=== PATIENT | female | born 1975 | race Caucasian/White ===

== ENCOUNTER 2021-06-26 08:22 | Inpatient (IN) ==
[2021-06-26] MEDS ORDERED: CeFAZolin Syr 2,000MG/20 ML 2,000 MG/20 ML SYRINGE IVPB ONE (08:48)
[2021-06-26] MEDS ORDERED: Ringers Solution, Lactated 1,000 ML IVC SCH (09:00)
[2021-06-26] MEDS ORDERED: Ondansetron 4 MG/2 ML VIAL IVP PRN ×2 (09:03→15:32)
[2021-06-26] MEDS ORDERED: *HR* Rocuronium Bromide 50 MG/5 ML VIAL ONE ×2 (09:13→11:28)
[2021-06-26] MEDS ORDERED: Lidocaine -MPF 2% 2 ML VIAL ONE (09:13)
[2021-06-26] MEDS ORDERED: *HR* Succinylcholine 200 MG/10 ML VIAL IVP ONE (09:13)
[2021-06-26] MEDS ORDERED: Sugammadex Sodium 200 MG/2 ML VIAL IV ONE ×2 (09:13→10:06)
[2021-06-26] MEDS ORDERED: *HR* FentaNYL (PF) 100 MCG/2 ML VIAL ONE ×2 (09:13→11:18)
[2021-06-26] MEDS ORDERED: Ondansetron 4 MG/2 ML VIAL ONE (09:13)
[2021-06-26] MEDS ORDERED: *HR* Propofol 200 MG/20 ML VIAL IVP ONE (09:14)
[2021-06-26] MEDS ORDERED: *HR* Midazolam HCl 2 MG/2 ML VIAL ONE (09:14)
[2021-06-26] MEDS ORDERED: Lidocaine HCL 4 ML Topical Solution (Laryng-O-Jet Kit Sterile Pak) TP ONE (10:58)
[2021-06-26] MEDS ORDERED: *HR* HYDROMORPHONE 2 MG/ML VIAL ONE (11:24)
[2021-06-26] MEDS ORDERED: Acetaminophen IV 1,000 MG/100 ML BAG IVPB ONE (11:47)
[2021-06-26] MEDS ORDERED: Ketorolac 30 MG/ML VIAL ONE (12:01)
[2021-06-26] MEDS: *HR* HYDROmorphone PF 0.5 MG/0.5 ML SYRINGE IVP PRN ×3 (13:39→14:26)
[2021-06-26] MEDS ORDERED: Naloxone 0.4 MG/ML INJ IVP PRN (15:32)
[2021-06-26] MEDS: 0.9 % Sodium Chloride 1,000 ML IVC SCH (15:55)
[2021-06-26] MEDS: *HR* OxyCODONE Oral Soln 5 MG/5 ML UD.LIQ PO PRN ×2 (15:58→20:15)
[2021-06-26] MEDS: *HR* Heparin 5,000 UNIT/ML VIAL SQ SCH ×2 (16:00→20:15)
[2021-06-26] MEDS: Ipratropium/Albuterol Neb 3 ML IH SCH ×3 (16:10→22:50)
[2021-06-26] MEDS: Ketorolac 30 MG/ML VIAL IVP SCH (17:10)
[2021-06-26] MEDS: Docusate Oral Soln 100 MG/10 ML UDC PO SCH (20:29)
[2021-06-26] MEDS: Mirtazapine 15 MG TABLET PO SCH (20:29)
[2021-06-26] MEDS ORDERED: Lithium Carbonate ER 450 MG TABLET.ER PO SCH (21:00)
[2021-06-27] MEDS: Ketorolac 30 MG/ML VIAL IVP SCH ×5 (00:04→23:38)
[2021-06-27] MEDS: *HR* OxyCODONE Oral Soln 5 MG/5 ML UD.LIQ PO PRN ×6 (00:05→20:25)
[2021-06-27] MEDS ORDERED: *HR* OxyCODONE Immed Rel 5 MG TABLET PO PRN (02:21)
[2021-06-27] MEDS ORDERED: *HR* HYDROmorphone (PF) 1 MG/ML SYRINGE IVP ONE (02:24)
[2021-06-27] MEDS: Ipratropium/Albuterol Neb 3 ML IH SCH ×6 (03:53→22:46)
[2021-06-27] MEDS: 0.9 % Sodium Chloride 1,000 ML IVC SCH ×2 (04:05→17:56)
[2021-06-27] MEDS: *HR* Heparin 5,000 UNIT/ML VIAL SQ SCH ×3 (06:03→23:39)
[2021-06-27 06:11] LABS: Hematocrit 47.2 % (35.3-44.9); Mean Corpuscular HGB Conc 31.8 g/dL (31.6-35.5); Mean Corpuscular Hemoglobin 29.5 pg (28.0-33.3); Mean Corpuscular Volume 92.7 fL (83.0-100.0); Mean Platelet Volume 11.5 fL (9.4-12.4); Platelet Count 221 K/mcL (140-400); Red Blood Count 5.09 M/mcL (3.82-4.97); Red Cell Distribution Width 12.4 % (11.5-14.5); White Blood Count 19.4 K/mcL (4.3-11.1)
[2021-06-27] MEDS: *HR* HYDROmorphone (PF) 1 MG/ML SYRINGE IVP PRN ×4 (06:30→20:25)
[2021-06-27 06:42] LABS: BUN/Creatinine Ratio 13 (6-26); Blood Urea Nitrogen 12 mg/dL (6-20); Calcium 8.8 mg/dL (8.6-10.3); Carbon Dioxide 24 mEq/L (23-29); Chloride 103 mEq/L (98-107); Glucose 98 mg/dL (70-105); Osmolality,Calculated 280 (280-300); Potassium 5.1 mEq/L (3.5-5.1); Sodium 135 mEq/L (136-145); eGFR For African Americans > 60 (> 60); eGFR For Non-African Americans > 60 (> 60)
[2021-06-27] MEDS: diazePAM 10 MG/2 ML SYRINGE IVP PRN ×2 (07:39→21:06)
[2021-06-27] MEDS ORDERED: methocarbamoL 500 MG TABLET PO SCH (09:00)
[2021-06-27] MEDS ORDERED: traZODone 50 MG TABLET PO SCH (09:00)
[2021-06-27] MEDS: Docusate Oral Soln 100 MG/10 ML UDC PO SCH ×2 (09:07→23:34)
[2021-06-27] MEDS: Pantoprazole 40 MG VIAL IVP SCH (09:07)
[2021-06-27] MEDS: Lithium Carbonate ER 450 MG TABLET.ER PO SCH (23:33)
[2021-06-27] MEDS: methocarbamoL 500 MG TABLET PO SCH (23:33)
[2021-06-27] MEDS: Mirtazapine 15 MG TABLET PO SCH (23:34)
[2021-06-27] MEDS: traZODone 50 MG TABLET PO SCH (23:34)
[2021-06-28] MEDS: *HR* OxyCODONE Oral Soln 5 MG/5 ML UD.LIQ PO PRN ×4 (00:32→17:44)
[2021-06-28] MEDS: *HR* HYDROmorphone (PF) 1 MG/ML SYRINGE IVP PRN ×5 (00:32→21:16)
[2021-06-28 02:58] LABS: Hematocrit 43.3 % (35.3-44.9); Hemoglobin 13.5 g/dL (11.5-15.4); Mean Corpuscular HGB Conc 31.2 g/dL (31.6-35.5); Mean Corpuscular Hemoglobin 29.4 pg (28.0-33.3); Mean Corpuscular Volume 94.3 fL (83.0-100.0); Mean Platelet Volume 10.9 fL (9.4-12.4); Platelet Count 230 K/mcL (140-400); Red Blood Count 4.59 M/mcL (3.82-4.97); Red Cell Distribution Width 12.8 % (11.5-14.5); White Blood Count 18.9 K/mcL (4.3-11.1)
[2021-06-28 03:24] LABS: BUN/Creatinine Ratio 12 (6-26); Blood Urea Nitrogen 9 mg/dL (6-20); Calcium 8.6 mg/dL (8.6-10.3); Carbon Dioxide 22 mEq/L (23-29); Chloride 104 mEq/L (98-107); Glucose 106 mg/dL (70-105); Osmolality,Calculated 281 (280-300); Potassium 4.2 mEq/L (3.5-5.1); Sodium 136 mEq/L (136-145); eGFR For African Americans > 60 (> 60); eGFR For Non-African Americans > 60 (> 60)
[2021-06-28] MEDS: Ipratropium/Albuterol Neb 3 ML IH SCH ×6 (03:38→23:13)
[2021-06-28] MEDS: Ketorolac 30 MG/ML VIAL IVP SCH ×4 (06:49→23:27)
[2021-06-28] MEDS: *HR* Heparin 5,000 UNIT/ML VIAL SQ SCH ×3 (06:50→21:29)
[2021-06-28] MEDS: 0.9 % Sodium Chloride 1,000 ML IVC SCH ×2 (10:02→21:32)
[2021-06-28] MEDS: Docusate Oral Soln 100 MG/10 ML UDC PO SCH ×2 (10:03→21:16)
[2021-06-28] MEDS: Pantoprazole 40 MG VIAL IVP SCH (10:10)
[2021-06-28] MEDS: traZODone 50 MG TABLET PO SCH (21:14)
[2021-06-28] MEDS: Mirtazapine 15 MG TABLET PO SCH (21:15)
[2021-06-28] MEDS: Lithium Carbonate ER 450 MG TABLET.ER PO SCH (21:24)
[2021-06-28] MEDS: methocarbamoL 500 MG TABLET PO SCH (21:25)
[2021-06-29] MEDS: *HR* OxyCODONE Oral Soln 5 MG/5 ML UD.LIQ PO PRN ×4 (01:43→20:44)
[2021-06-29] MEDS: Ipratropium/Albuterol Neb 3 ML IH SCH ×6 (03:36→22:18)
[2021-06-29] MEDS: Ketorolac 30 MG/ML VIAL IVP SCH ×3 (05:03→17:34)
[2021-06-29] MEDS: *HR* Heparin 5,000 UNIT/ML VIAL SQ SCH ×3 (05:03→22:14)
[2021-06-29] MEDS: Pantoprazole 40 MG VIAL IVP SCH (08:10)
[2021-06-29] MEDS: Docusate Oral Soln 100 MG/10 ML UDC PO SCH ×2 (08:10→20:37)
[2021-06-29] MEDS: *HR* HYDROmorphone (PF) 1 MG/ML SYRINGE IVP PRN (08:11)
[2021-06-29] MEDS: 0.9 % Sodium Chloride 1,000 ML IVC SCH (10:14)
[2021-06-29] MEDS: Metoclopramide 10 MG/2 ML VIAL IVP SCH ×2 (12:15→17:35)
[2021-06-29] MEDS ORDERED: Albumin Human 5% 12.5 GM/250 ML IV.SOLN IVPB ONE ×2 (12:46→19:00)
[2021-06-29] MEDS: traZODone 50 MG TABLET PO SCH (20:35)
[2021-06-29] MEDS: methocarbamoL 500 MG TABLET PO SCH (20:35)
[2021-06-29] MEDS: Lithium Carbonate ER 450 MG TABLET.ER PO SCH (20:36)
[2021-06-29] MEDS: Mirtazapine 15 MG TABLET PO SCH (20:37)
[2021-06-30] MEDS: 0.9 % Sodium Chloride 1,000 ML IVC SCH ×2 (00:20→21:45)
[2021-06-30] MEDS: Metoclopramide 10 MG/2 ML VIAL IVP SCH ×4 (00:23→18:23)
[2021-06-30] MEDS: Ketorolac 30 MG/ML VIAL IVP SCH ×4 (00:24→18:23)
[2021-06-30] MEDS: *HR* Heparin 5,000 UNIT/ML VIAL SQ SCH ×3 (04:50→21:01)
[2021-06-30] MEDS: *HR* OxyCODONE Oral Soln 5 MG/5 ML UD.LIQ PO PRN (08:32)
[2021-06-30] MEDS: Ampicillin/Sulbactam 3,000 MG in 0.9 % Sodium Chloride Mini Bag 100 ML IVPB SCH ×3 (08:33→21:02)
[2021-06-30] MEDS: Pantoprazole 40 MG VIAL IVP SCH (08:33)
[2021-06-30] MEDS: Docusate Oral Soln 100 MG/10 ML UDC PO SCH ×2 (08:33→21:02)
[2021-06-30] MEDS ORDERED: diazePAM 10 MG/2 ML SYRINGE IVP PRN (08:40)
[2021-06-30] MEDS: Lithium Carbonate ER 450 MG TABLET.ER PO SCH (20:56)
[2021-06-30] MEDS: traZODone 50 MG TABLET PO SCH (20:58)
[2021-06-30] MEDS: Mirtazapine 15 MG TABLET PO SCH (20:59)
[2021-06-30] MEDS: methocarbamoL 500 MG TABLET PO SCH (20:59)
[2021-07-01] MEDS: Ketorolac 30 MG/ML VIAL IVP SCH ×2 (01:30→05:41)
[2021-07-01] MEDS: Metoclopramide 10 MG/2 ML VIAL IVP SCH ×4 (01:30→23:02)
[2021-07-01 02:22] LABS: Hematocrit 36.5 % (35.3-44.9); Mean Corpuscular HGB Conc 31.8 g/dL (31.6-35.5); Mean Corpuscular Hemoglobin 28.9 pg (28.0-33.3); Mean Corpuscular Volume 90.8 fL (83.0-100.0); Mean Platelet Volume 10.9 fL (9.4-12.4); Platelet Count 214 K/mcL (140-400); Red Blood Count 4.02 M/mcL (3.82-4.97); Red Cell Distribution Width 13.4 % (11.5-14.5); White Blood Count 18.5 K/mcL (4.3-11.1)
[2021-07-01 02:38] LABS: Hemoglobin 11.6 g/dL (11.5-15.4)
[2021-07-01] MEDS: Ampicillin/Sulbactam 3,000 MG in 0.9 % Sodium Chloride Mini Bag 100 ML IVPB SCH ×2 (02:47→07:35)
[2021-07-01] MEDS: *HR* Heparin 5,000 UNIT/ML VIAL SQ SCH ×2 (05:41→13:15)
[2021-07-01] MEDS: *HR* OxyCODONE Oral Soln 5 MG/5 ML UD.LIQ PO PRN ×2 (07:34→13:15)
[2021-07-01] MEDS: Docusate Oral Soln 100 MG/10 ML UDC PO SCH (07:34)
[2021-07-01] MEDS: Pantoprazole 40 MG VIAL IVP SCH (07:34)
[2021-07-01] MEDS: Ipratropium/Albuterol Neb 3 ML IH SCH ×2 (11:47→15:51)
[2021-07-01 14:04] LABS: BUN/Creatinine Ratio 24 (6-26); Blood Urea Nitrogen 25 mg/dL (6-20); Calcium 8.9 mg/dL (8.6-10.3); Carbon Dioxide 19 mEq/L (23-29); Chloride 112 mEq/L (98-107); Glucose 106 mg/dL (70-105); Osmolality,Calculated 299 (280-300); Potassium 4.5 mEq/L (3.5-5.1); Sodium 142 mEq/L (136-145); eGFR For African Americans > 60 (> 60); eGFR For Non-African Americans 57 (> 60)
[2021-07-01] MEDS ORDERED: Norepinephrine 4 MG/254 ML in 0.9% Sodium Chloride IVC ONE (14:46)
[2021-07-01] MEDS ORDERED: Azithromycin 250 MG TABLET PO SCH (15:00)
[2021-07-01] MEDS ORDERED: Iopamidol - 370 500 ML MLS PO ONE (15:28)
[2021-07-01] MEDS ORDERED: *HR* Midazolam HCl 5 MG/5 ML VIAL IVP ONE ×2 (16:08→17:40)
[2021-07-01] MEDS ORDERED: *HR* Etomidate 20 MG/10 ML AMPUL IVP ONE (16:08)
[2021-07-01] MEDS: Piperacillin/Tazobactam 3.375 GM in 0.9 % Sodium Chloride Mini Bag 100 ML IVPB SCH (16:27)
[2021-07-01 16:41] LABS: Albumin 2.5 g/dL (3.5-5.7); Albumin/Globulin Ratio 0.9 (1.1-2.2); Bilirubin,Direct 0.2 mg/dL (0.0-0.2); Bilirubin,Indirect 0.4 mg/dL (0.0-1.0); Bilirubin,Total 0.6 mg/dL (0.3-1.0); Globulin 2.7 g/dL (2.4-3.5); Total Protein 5.2 g/dL (6.4-8.9)
[2021-07-01] MEDS ORDERED: Heparin 1,000 UNITS/500 mL 500 ML ONE (17:10)
[2021-07-01] MEDS ORDERED: *HR* FentaNYL (PF) 100 MCG/2 ML VIAL ONE ×2 (17:11→17:18)
[2021-07-01] MEDS ORDERED: FentaNYL (PF) 1,000 MCG/100 ML IV.SOLN IVC SCH ×2 (17:15→20:15)
[2021-07-01] MEDS ORDERED: Ondansetron 4 MG/2 ML VIAL ONE (17:19)
[2021-07-01] MEDS ORDERED: *HR* Phenylephrine 10 MG/ML VIAL ONE (17:19)
[2021-07-01] MEDS ORDERED: *HR* Rocuronium Bromide 50 MG/5 ML VIAL ONE ×2 (17:19→19:03)
[2021-07-01] MEDS ORDERED: 0.9 % Sodium Chloride 1,000 ML ONE (17:25)
[2021-07-01] MEDS ORDERED: Albumin Human 5% 25.0 GM/500 ML IV.SOLN ONE (17:26)
[2021-07-01] MEDS ORDERED: *HR* Propofol 200 MG/20 ML VIAL IVP ONE (17:28)
[2021-07-01] MEDS ORDERED: Norepinephrine 4 MG/254 ML IV.SOLN IVC SCH ×3 (17:30→22:15)
[2021-07-01 17:31] LABS: ABG Base Excess -5 mEq/L (-2 to 3); ABG HCO3 23 mEq/L (21-27); ABG Oxygen Saturation 82 % (95-98); ABG PCO2 58 mmHg (35-45); ABG PO2 58 mmHg (85-104); ABG TCO2 24 mEq/L (20-26)
[2021-07-01 17:57] LABS: ABG Base Excess -7 mEq/L (-2 to 3); ABG HCO3 18 mEq/L (21-27); ABG Oxygen Saturation 100 % (95-98); ABG PCO2 35 mmHg (35-45); ABG PH 7.34 pH Units (7.32-7.45); ABG PO2 294 mmHg (85-104); ABG TCO2 20 mEq/L (20-26); Blood Gas VT 450 cc
[2021-07-01 18:04] LABS: Hematocrit 19.8 % (35.3-44.9); Mean Corpuscular HGB Conc 32.8 g/dL (31.6-35.5); Mean Corpuscular Hemoglobin 29.7 pg (28.0-33.3); Mean Corpuscular Volume 90.4 fL (83.0-100.0); Mean Platelet Volume 11.6 fL (9.4-12.4); Nucleated Red Blood Cells 0.6 /100 WBC (0); Platelet Count 127 K/mcL (140-400); Red Blood Count 2.19 M/mcL (3.82-4.97); Red Cell Distribution Width 13.8 % (11.5-14.5); White Blood Count 10.8 K/mcL (4.3-11.1)
[2021-07-01 18:05] LABS: Hemoglobin 6.5 g/dL (11.5-15.4)
[2021-07-01 18:06] LABS: VBG Ionized Calcium 1.08 mmol/L (1.15-1.35)
[2021-07-01 18:14] LABS: Heparin anti-factor XA UFH < 0.04 IU/mL (0.30-0.70)
[2021-07-01 18:15] LABS: INR 1.6; Prothrombin Time 18.3 Seconds (9.4-12.1)
[2021-07-01] MEDS ORDERED: Ketamine HCL *QUVA* 50mg (1mL) SYRINGE ONE ×2 (18:15→19:38)
[2021-07-01] MEDS ORDERED: 0.9 % Sodium Chloride 1,000 ML IVC SCH (18:16)
[2021-07-01] MEDS ORDERED: diazePAM 10 MG/2 ML SYRINGE IVP PRN ×2 (18:16→22:13)
[2021-07-01] MEDS ORDERED: Ondansetron 4 MG/2 ML VIAL IVP PRN ×2 (18:16→22:13)
[2021-07-01] MEDS ORDERED: *HR* OxyCODONE Oral Soln 5 MG/5 ML UD.LIQ PO PRN ×2 (18:16→22:13)
[2021-07-01] MEDS ORDERED: Naloxone 0.4 MG/ML INJ IVP PRN (18:16)
[2021-07-01] MEDS ORDERED: *HR* HYDROmorphone (PF) 1 MG/ML SYRINGE IVP PRN (18:16)
[2021-07-01 18:17] LABS: Activated Partial Thrombo Time 30.8 Seconds (26.0-36.0)
[2021-07-01] MEDS ORDERED: CefOXitin 2,000 MG VIAL ONE (18:30)
[2021-07-01 18:42] LABS: Alanine Aminotransferase 8 Units/L (7-52); Albumin 1.7 g/dL (3.5-5.7); Albumin/Globulin Ratio 1.2 (1.1-2.2); Alkaline Phosphatase 35 Units/L (34-104); Aspartate Amino Transferase 15 Units/L (13-39); BUN/Creatinine Ratio 23 (6-26); Bilirubin,Total 0.4 mg/dL (0.3-1.0); Blood Urea Nitrogen 27 mg/dL (6-20); Calcium 6.5 mg/dL (8.6-10.3); Carbon Dioxide 20 mEq/L (23-29); Chloride 118 mEq/L (98-107); Globulin 1.4 g/dL (2.4-3.5); Glucose 121 mg/dL (70-105); Magnesium 2.1 mg/dL (1.6-2.6); Osmolality,Calculated 310 (280-300); Potassium 2.8 mEq/L (3.5-5.1); Sodium 147 mEq/L (136-145); Total Protein 3.1 g/dL (6.4-8.9); eGFR For African Americans > 60 (> 60); eGFR For Non-African Americans 50 (> 60)
[2021-07-01 18:56] LABS: Hematocrit 17.7 % (35.3-44.9)
[2021-07-01 18:56] LABS: Large Platelets Present (Not Present); Lymphocytes # 0.4 K/mcL (0.6-4.6); Monocytes # 0.4 K/mcL (0.0-1.3); Neutrophils # 9.5 K/mcL (1.6-8.9); Platelet Estimate Slight Decrease (Normal)
[2021-07-01 19:01] LABS: Hemoglobin 5.8 g/dL (11.5-15.4)
[2021-07-01] MEDS ORDERED: Tranexamic Acid 1,000 MG/10 ML VIAL ONE (19:06)
[2021-07-01] MEDS: FentaNYL (PF) 1,000 MCG/100 ML IV.SOLN IVC SCH ×2 (19:45→22:27)
[2021-07-01] MEDS ORDERED: Ipratropium/Albuterol Neb 3 ML IH SCH (20:00)
[2021-07-01 20:31] LABS: ABG Base Excess -6 mEq/L (-2 to 3); ABG HCO3 20 mEq/L (21-27); ABG Oxygen Saturation 100 % (95-98); ABG PCO2 44 mmHg (35-45); ABG PH 7.27 pH Units (7.32-7.45); ABG PO2 281 mmHg (85-104); ABG TCO2 22 mEq/L (20-26); Blood Gas VT 400 cc
[2021-07-01] MEDS ORDERED: methocarbamoL 500 MG TABLET PO SCH (21:00)
[2021-07-01] MEDS ORDERED: Lithium Carbonate ER 450 MG TABLET.ER PO SCH (21:00)
[2021-07-01] MEDS ORDERED: traZODone 50 MG TABLET PO SCH (21:00)
[2021-07-01] MEDS ORDERED: Mirtazapine 15 MG TABLET PO SCH (21:00)
[2021-07-01] MEDS ORDERED: *HR* Heparin 5,000 UNIT/ML VIAL SQ SCH (22:00)
[2021-07-01] MEDS: 0.9 % Sodium Chloride 1,000 ML IVC SCH (22:27)
[2021-07-01] MEDS: Calcium Gluconate 1gm/50mL 1 GM/50 ML BAG IVPB SCH ×2 (22:33→23:01)
[2021-07-02] MEDS ORDERED: Metoclopramide 10 MG/2 ML VIAL IVP SCH
[2021-07-02 01:02] LABS: Mean Corpuscular Volume 89.3 fL (83.0-100.0); Mean Platelet Volume 12.3 fL (9.4-12.4)
[2021-07-02 01:03] LABS: Hematocrit 29.9 % (35.3-44.9); Hemoglobin 9.9 g/dL (11.5-15.4); Immature Platelets 12.7 % (1.1-6.1); Mean Corpuscular HGB Conc 33.1 g/dL (31.6-35.5); Mean Corpuscular Hemoglobin 29.6 pg (28.0-33.3); Red Blood Count 3.35 M/mcL (3.82-4.97)
[2021-07-02 01:42] LABS: Calcium 7.9 mg/dL (8.6-10.3); Potassium 3.8 mEq/L (3.5-5.1)
[2021-07-02 02:13] LABS: Magnesium 2.3 mg/dL (1.6-2.6); Phosphorous 2.2 mg/dL (2.7-4.5)
[2021-07-02] MEDS ORDERED: Potassium Phosphate 44 MEQ in 0.9 % Sodium Chloride 250 ML IVPB ONE (02:35)
[2021-07-02] MEDS: Calcium Gluconate 1gm/50mL 1 GM/50 ML BAG IVPB SCH ×2 (03:23→04:23)
[2021-07-02 04:37] LABS: ABG Base Excess -6 mEq/L (-2 to 3); ABG HCO3 22 mEq/L (21-27); ABG Oxygen Saturation 98 % (95-98); ABG PCO2 53 mmHg (35-45); ABG PH 7.23 pH Units (7.32-7.45); ABG PO2 125 mmHg (85-104); ABG TCO2 24 mEq/L (20-26); Blood Gas VT 400 cc
[2021-07-02] MEDS: Ampicillin/Sulbactam 3,000 MG in 0.9 % Sodium Chloride Mini Bag 100 ML IVPB SCH ×2 (05:24→11:10)
[2021-07-02] MEDS: Metoclopramide 10 MG/2 ML VIAL IVP SCH ×4 (05:25→17:51)
[2021-07-02] MEDS: FentaNYL (PF) 1,000 MCG/100 ML IV.SOLN IVC SCH ×2 (05:25→23:20)
[2021-07-02] MEDS: *HR* Heparin 5,000 UNIT/ML VIAL SQ SCH ×3 (05:25→20:29)
[2021-07-02] MEDS ORDERED: *HR* Dextrose 50 % in Water (Syg) 50 ML SYRINGE IVP PRN (05:35)
[2021-07-02] MEDS ORDERED: D5% in Water 1,000 ML IVC PRN (05:35)
[2021-07-02] MEDS ORDERED: Dextrose 4 GM Chewable Tablets PO PRN ×2 (05:35)
[2021-07-02] MEDS: 0.9 % Sodium Chloride 1,000 ML IVC SCH ×4 (07:30→23:12)
[2021-07-02] MEDS: Piperacillin/Tazobactam 3.375 GM in 0.9 % Sodium Chloride Mini Bag 100 ML IVPB SCH ×2 (07:30→17:51)
[2021-07-02] MEDS: Pantoprazole 40 MG VIAL IVP SCH (08:31)
[2021-07-02] MEDS ORDERED: Pantoprazole 40 MG VIAL IVP SCH (09:00)
[2021-07-02] MEDS ORDERED: Artificial Tears SOLN 15 ML BOTTLE BOTH EYES PRN (09:07)
[2021-07-02] MEDS ORDERED: Lithium Oral Soln 300 MG/5 ML (8 mEq/5mL) UDC GTUBE SCH (10:00)
[2021-07-02] MEDS: Chlorhexidine Rinse 15 ML MOUTHWASH MM SCH ×2 (11:05→20:28)
[2021-07-02] MEDS: Lithium Carbonate 300 MG CAPSULE PO SCH ×2 (11:08→17:51)
[2021-07-02] MEDS: Artificial Tears SOLN 15 ML BOTTLE BOTH EYES SCH ×3 (11:10→20:27)
[2021-07-02 14:35] LABS: RBC,Pleural Fluid 20000 RBC/mcL
[2021-07-02 15:02] LABS: Total Protein,Pleural Fluid 2.1 g/dL
[2021-07-02 15:50] LABS: ABG Base Excess -3 mEq/L (-2 to 3); ABG HCO3 23 mEq/L (21-27); ABG Oxygen Saturation 97 % (95-98); ABG PCO2 46 mmHg (35-45); ABG PH 7.31 pH Units (7.32-7.45); ABG PO2 98 mmHg (85-104); ABG TCO2 25 mEq/L (20-26); Blood Gas Modality ASSIST CONTROL; Blood Gas VT 400 cc
[2021-07-02 16:36] LABS: Basophils,Pleural Fluid 0 %; Eosinophils,Pleural Fluid 0 %; Monocytes,Pleural Fluid 0 %
[2021-07-02 16:58] LABS: Adenovirus Not Detected (Not Detect); Bordetella Pertussis Not Detected (Not Detect); Chlamydophila pneumoniae Not Detected (Not Detect); Coronavirus 229E Not Detected (Not Detect); Coronavirus HKU1 Not Detected (Not Detect); Coronavirus NL63 Not Detected (Not Detect); Coronavirus OC43 Not Detected (Not Detect); Human Metapneumovirus Not Detected (Not Detect); Human Rhinovirus/Enterovirus Not Detected (Not Detect); Influenza A Subtype 2009 H1 Not Detected (Not Detect); Influenza B Not Detected (Not Detect); Mycoplasma pneumoniae Not Detected (Not Detect); Parainfluenza Virus 1 Not Detected (Not Detect); Parainfluenza Virus 2 Not Detected (Not Detect); Parainfluenza Virus 3 Not Detected (Not Detect); Parainfluenza Virus 4 Not Detected (Not Detect); Respiratory Syncytial Virus Not Detected (Not Detect); SARS-CoV-2 Not Detected (Not Detect)
[2021-07-02] MEDS: Mirtazapine 15 MG TABLET GTUBE SCH (20:28)
[2021-07-02] MEDS: methocarbamoL 500 MG TABLET GTUBE SCH (20:28)
[2021-07-02] MEDS ORDERED: Lithium Carbonate ER 450 MG TABLET.ER PO SCH (21:00)
[2021-07-02 22:05] LABS: Appearance of Pleural Fl Cloudy (Clear)
[2021-07-03] MEDS: Artificial Tears SOLN 15 ML BOTTLE BOTH EYES SCH ×6 (00:33→20:09)
[2021-07-03] MEDS: Lithium Carbonate 300 MG CAPSULE PO SCH ×3 (00:34→17:48)
[2021-07-03] MEDS: Metoclopramide 10 MG/2 ML VIAL IVP SCH ×4 (00:34→17:48)
[2021-07-03] MEDS: Piperacillin/Tazobactam 3.375 GM in 0.9 % Sodium Chloride Mini Bag 100 ML IVPB SCH ×3 (02:45→17:48)
[2021-07-03 04:05] LABS: ABG Ionized Calcium 1.24 mmol/L (1.15-1.35)
[2021-07-03 04:10] LABS: ABG Base Excess -2 mEq/L (-2 to 3); ABG HCO3 24 mEq/L (21-27); ABG Oxygen Saturation 98 % (95-98); ABG PCO2 43 mmHg (35-45); ABG PH 7.35 pH Units (7.32-7.45); ABG PO2 112 mmHg (85-104); ABG TCO2 25 mEq/L (20-26); Blood Gas VT 400 cc
[2021-07-03 04:32] LABS: Calcium 8.1 mg/dL (8.6-10.3); Magnesium 2.5 mg/dL (1.6-2.6); Phosphorous 1.6 mg/dL (2.7-4.5); Potassium 3.9 mEq/L (3.5-5.1)
[2021-07-03] MEDS: *HR* Heparin 5,000 UNIT/ML VIAL SQ SCH ×3 (05:26→22:30)
[2021-07-03] MEDS: FentaNYL (PF) 1,000 MCG/100 ML IV.SOLN IVC SCH (09:30)
[2021-07-03] MEDS ORDERED: D5% in Water 1,000 ML IVC SCH (09:45)
[2021-07-03] MEDS ORDERED: Potassium Chloride 20 MEQ in D5% in Water 1,000 ML IVC SCH ×2 (10:45→15:21)
[2021-07-03] MEDS: Chlorhexidine Rinse 15 ML MOUTHWASH MM SCH ×2 (10:45→20:11)
[2021-07-03] MEDS: Pantoprazole 40 MG VIAL IVP SCH (10:47)
[2021-07-03] MEDS: Clinimix E 5%-15% SOLUTION 2,000 ML with MVI, adult with vitamin K 10 ML IV SCH ×2 (13:38→17:17)
[2021-07-03] MEDS ORDERED: *HR* Dextrose 50 % in Water (Syg) 50 ML SYRINGE IVP PRN (15:13)
[2021-07-03] MEDS ORDERED: D5% in Water 1,000 ML IVC PRN (15:13)
[2021-07-03] MEDS ORDERED: D10% in Water 500 ML IVC PRN (15:17)
[2021-07-03] MEDS: Insulin LISPRO 300 UNITS/3 ML VIAL SUBQ SCH ×2 (17:44→21:17)
[2021-07-03 17:46] LABS: Red Cell Distribution Width 15.8 % (11.5-14.5)
[2021-07-03 17:48] LABS: Hematocrit 24.8 % (35.3-44.9); Hemoglobin 8.1 g/dL (11.5-15.4); Immature Platelets 12.4 % (1.1-6.1); Mean Corpuscular HGB Conc 32.7 g/dL (31.6-35.5); Mean Corpuscular Hemoglobin 29.6 pg (28.0-33.3); Mean Corpuscular Volume 90.5 fL (83.0-100.0); Mean Platelet Volume 12.7 fL (9.4-12.4); Red Blood Count 2.74 M/mcL (3.82-4.97); White Blood Count 24.3 K/mcL (4.3-11.1)
[2021-07-03] MEDS: methocarbamoL 500 MG TABLET GTUBE SCH (22:29)
[2021-07-03] MEDS: Mirtazapine 15 MG TABLET GTUBE SCH (22:29)
[2021-07-03] MEDS: *HR* HYDROmorphone (PF) 1 MG/ML SYRINGE IVP PRN (23:11)
[2021-07-04] MEDS: *HR* HYDROmorphone (PF) 1 MG/ML SYRINGE IVP PRN ×8 (01:23→23:43)
[2021-07-04] MEDS: Artificial Tears SOLN 15 ML BOTTLE BOTH EYES SCH ×3 (02:25→08:10)
[2021-07-04] MEDS: Insulin LISPRO 300 UNITS/3 ML VIAL SUBQ SCH ×7 (02:27→23:51)
[2021-07-04] MEDS: Lithium Carbonate 300 MG CAPSULE PO SCH ×3 (02:30→18:34)
[2021-07-04] MEDS: Metoclopramide 10 MG/2 ML VIAL IVP SCH ×4 (02:30→18:34)
[2021-07-04] MEDS: Piperacillin/Tazobactam 3.375 GM in 0.9 % Sodium Chloride Mini Bag 100 ML IVPB SCH ×3 (03:46→18:34)
[2021-07-04 03:47] LABS: Red Cell Distribution Width 15.7 % (11.5-14.5); White Blood Count 24.4 K/mcL (4.3-11.1)
[2021-07-04 03:49] LABS: Hematocrit 25.4 % (35.3-44.9); Hemoglobin 8.3 g/dL (11.5-15.4); Immature Platelets 11.9 % (1.1-6.1); Mean Corpuscular HGB Conc 32.7 g/dL (31.6-35.5); Mean Corpuscular Volume 91.7 fL (83.0-100.0); Mean Platelet Volume 12.8 fL (9.4-12.4); Red Blood Count 2.77 M/mcL (3.82-4.97)
[2021-07-04 04:13] LABS: Magnesium 2.5 mg/dL (1.6-2.6); Phosphorous 2.7 mg/dL (2.7-4.5)
[2021-07-04 04:14] LABS: Calcium 8.3 mg/dL (8.6-10.3)
[2021-07-04] MEDS: *HR* Metoprolol 5 MG/5 ML VIAL IVP PRN ×2 (05:47→23:44)
[2021-07-04] MEDS: Chlorhexidine Rinse 15 ML MOUTHWASH MM SCH ×2 (08:09→21:48)
[2021-07-04] MEDS: Pantoprazole 40 MG VIAL IVP SCH (08:09)
[2021-07-04] MEDS: *HR* Heparin 5,000 UNIT/ML VIAL SQ SCH ×3 (08:14→21:52)
[2021-07-04] MEDS: D5% in Water 1,000 ML IVC SCH ×3 (08:27→22:00)
[2021-07-04] MEDS ORDERED: Fluconazole 200 MG/100 ML 200 MG/100 ML BAG IVPB SCH (09:00)
[2021-07-04] MEDS: Micafungin 100 MG in 0.9 % Sodium Chloride Mini Bag 100 ML IVPB SCH (13:31)
[2021-07-04 13:40] LABS: BUN/Creatinine Ratio 26 (6-26); Blood Urea Nitrogen 29 mg/dL (6-20); Calcium 8.2 mg/dL (8.6-10.3); Carbon Dioxide 27 mEq/L (23-29); Chloride 127 mEq/L (98-107); Glucose 214 mg/dL (70-105); Osmolality,Calculated 336 (280-300); Potassium 3.6 mEq/L (3.5-5.1); Sodium 157 mEq/L (136-145); eGFR For African Americans > 60 (> 60); eGFR For Non-African Americans 52 (> 60)
[2021-07-04] MEDS ORDERED: Clinimix E 5%-15% SOLUTION 2,000 ML with MVI, adult with vitamin K 10 ML IV SCH (17:00)
[2021-07-04 18:23] LABS: BUN/Creatinine Ratio 25 (6-26); Blood Urea Nitrogen 28 mg/dL (6-20); Calcium 8.1 mg/dL (8.6-10.3); Carbon Dioxide 27 mEq/L (23-29); Chloride 127 mEq/L (98-107); Glucose 204 mg/dL (70-105); Osmolality,Calculated 337 (280-300); Potassium 3.6 mEq/L (3.5-5.1); Sodium 158 mEq/L (136-145); eGFR For African Americans > 60 (> 60); eGFR For Non-African Americans 53 (> 60)
[2021-07-04 21:51] LABS: BUN/Creatinine Ratio 24 (6-26); Blood Urea Nitrogen 26 mg/dL (6-20); Calcium 8.2 mg/dL (8.6-10.3); Carbon Dioxide 26 mEq/L (23-29); Chloride 127 mEq/L (98-107); Glucose 151 mg/dL (70-105); Osmolality,Calculated 334 (280-300); Potassium 3.6 mEq/L (3.5-5.1); Sodium 158 mEq/L (136-145); eGFR For African Americans > 60 (> 60); eGFR For Non-African Americans 55 (> 60)
[2021-07-05] MEDS: Mirtazapine 15 MG TABLET GTUBE SCH ×2 (01:26→20:21)
[2021-07-05] MEDS: Lithium Carbonate 300 MG CAPSULE PO SCH ×4 (01:26→23:09)
[2021-07-05] MEDS: methocarbamoL 500 MG TABLET GTUBE SCH ×2 (01:26→20:21)
[2021-07-05] MEDS: Metoclopramide 10 MG/2 ML VIAL IVP SCH ×5 (01:27→23:09)
[2021-07-05] MEDS: Piperacillin/Tazobactam 3.375 GM in 0.9 % Sodium Chloride Mini Bag 100 ML IVPB SCH ×3 (01:27→17:21)
[2021-07-05 03:41] LABS: BUN/Creatinine Ratio 22 (6-26); Blood Urea Nitrogen 24 mg/dL (6-20); Carbon Dioxide 27 mEq/L (23-29); Chloride 125 mEq/L (98-107); Glucose 181 mg/dL (70-105); Osmolality,Calculated 329 (280-300); Sodium 155 mEq/L (136-145); eGFR For African Americans > 60 (> 60); eGFR For Non-African Americans 54 (> 60)
[2021-07-05 04:34] LABS: Hematocrit 24.9 % (35.3-44.9); Mean Corpuscular HGB Conc 32.1 g/dL (31.6-35.5); Mean Corpuscular Hemoglobin 29.4 pg (28.0-33.3); Mean Corpuscular Volume 91.5 fL (83.0-100.0); Platelet Count 103 K/mcL (140-400); Red Blood Count 2.72 M/mcL (3.82-4.97); Red Cell Distribution Width 15.9 % (11.5-14.5)
[2021-07-05 04:50] LABS: BUN/Creatinine Ratio 23 (6-26); Blood Urea Nitrogen 24 mg/dL (6-20); Calcium 8.1 mg/dL (8.6-10.3); Carbon Dioxide 27 mEq/L (23-29); Chloride 125 mEq/L (98-107); Glucose 191 mg/dL (70-105); Osmolality,Calculated 327 (280-300); Phosphorous 2.7 mg/dL (2.7-4.5); Sodium 154 mEq/L (136-145); eGFR For African Americans > 60 (> 60); eGFR For Non-African Americans 56 (> 60)
[2021-07-05] MEDS: *HR* Metoprolol 5 MG/5 ML VIAL IVP PRN (05:11)
[2021-07-05] MEDS: *HR* Heparin 5,000 UNIT/ML VIAL SQ SCH ×3 (05:11→20:21)
[2021-07-05] MEDS: *HR* HYDROmorphone (PF) 1 MG/ML SYRINGE IVP PRN ×3 (05:12→13:46)
[2021-07-05] MEDS: Insulin LISPRO 300 UNITS/3 ML VIAL SUBQ SCH ×6 (05:13→23:10)
[2021-07-05] MEDS ORDERED: Iopamidol - 370 500 ML MLS IVP ONE ×2 (08:58→11:02)
[2021-07-05] MEDS: Pantoprazole 40 MG VIAL IVP SCH (10:16)
[2021-07-05] MEDS: D5% in Water 1,000 ML IVC SCH ×3 (10:42→20:43)
[2021-07-05] MEDS: Micafungin 100 MG in 0.9 % Sodium Chloride Mini Bag 100 ML IVPB SCH (10:53)
[2021-07-05 11:06] LABS: BUN/Creatinine Ratio 25 (6-26); Blood Urea Nitrogen 26 mg/dL (6-20); Calcium 8.1 mg/dL (8.6-10.3); Carbon Dioxide 23 mEq/L (23-29); Chloride 127 mEq/L (98-107); Glucose 189 mg/dL (70-105); Osmolality,Calculated 332 (280-300); Potassium 4.3 mEq/L (3.5-5.1); Sodium 156 mEq/L (136-145); eGFR For African Americans > 60 (> 60); eGFR For Non-African Americans 56 (> 60)
[2021-07-05] MEDS: Chlorhexidine Rinse 15 ML MOUTHWASH MM SCH ×2 (11:10→20:20)
[2021-07-05 14:55] LABS: BUN/Creatinine Ratio 24 (6-26); Blood Urea Nitrogen 24 mg/dL (6-20); Calcium 8.1 mg/dL (8.6-10.3); Carbon Dioxide 27 mEq/L (23-29); Chloride 123 mEq/L (98-107); Glucose 182 mg/dL (70-105); Osmolality,Calculated 327 (280-300); Potassium 3.8 mEq/L (3.5-5.1); Sodium 154 mEq/L (136-145); eGFR For African Americans > 60 (> 60); eGFR For Non-African Americans 60 (> 60)
[2021-07-05] MEDS ORDERED: Clinimix E 5%-15% SOLUTION 2,000 ML with MVI, adult with vitamin K 10 ML IV SCH (17:00)
[2021-07-05 17:25] LABS: BUN/Creatinine Ratio 25 (6-26); Blood Urea Nitrogen 25 mg/dL (6-20); Calcium 8.2 mg/dL (8.6-10.3); Carbon Dioxide 28 mEq/L (23-29); Chloride 122 mEq/L (98-107); Glucose 174 mg/dL (70-105); Osmolality,Calculated 327 (280-300); Potassium 3.8 mEq/L (3.5-5.1); Sodium 154 mEq/L (136-145); eGFR For African Americans > 60 (> 60); eGFR For Non-African Americans 59 (> 60)
[2021-07-05 18:59] LABS: BUN/Creatinine Ratio 25 (6-26); Blood Urea Nitrogen 25 mg/dL (6-20); Calcium 8.3 mg/dL (8.6-10.3); Carbon Dioxide 30 mEq/L (23-29); Chloride 122 mEq/L (98-107); Glucose 121 mg/dL (70-105); Osmolality,Calculated 322 (280-300); Sodium 153 mEq/L (136-145); eGFR For African Americans > 60 (> 60); eGFR For Non-African Americans 59 (> 60)
[2021-07-05 20:50] LABS: BUN/Creatinine Ratio 25 (6-26); Blood Urea Nitrogen 25 mg/dL (6-20); Calcium 8.3 mg/dL (8.6-10.3); Carbon Dioxide 28 mEq/L (23-29); Chloride 121 mEq/L (98-107); Glucose 179 mg/dL (70-105); Osmolality,Calculated 323 (280-300); Potassium 3.7 mEq/L (3.5-5.1); Sodium 152 mEq/L (136-145); eGFR For African Americans > 60 (> 60); eGFR For Non-African Americans 59 (> 60)
[2021-07-06 00:24] LABS: BUN/Creatinine Ratio 24 (6-26); Blood Urea Nitrogen 26 mg/dL (6-20); Calcium 8.4 mg/dL (8.6-10.3); Carbon Dioxide 27 mEq/L (23-29); Chloride 123 mEq/L (98-107); Glucose 202 mg/dL (70-105); Osmolality,Calculated 331 (280-300); Potassium 3.8 mEq/L (3.5-5.1); Sodium 155 mEq/L (136-145); eGFR For African Americans > 60 (> 60); eGFR For Non-African Americans 55 (> 60)
[2021-07-06] MEDS: Piperacillin/Tazobactam 3.375 GM in 0.9 % Sodium Chloride Mini Bag 100 ML IVPB SCH ×3 (01:00→17:27)
[2021-07-06] MEDS: Insulin LISPRO 300 UNITS/3 ML VIAL SUBQ SCH ×6 (03:13→23:46)
[2021-07-06] MEDS: *HR* HYDROmorphone (PF) 1 MG/ML SYRINGE IVP PRN (03:47)
[2021-07-06 03:59] LABS: Hematocrit 24.6 % (35.3-44.9); Immature Platelets 17.5 % (1.1-6.1); Mean Corpuscular HGB Conc 32.5 g/dL (31.6-35.5); Mean Corpuscular Hemoglobin 29.7 pg (28.0-33.3); Mean Corpuscular Volume 91.4 fL (83.0-100.0); Mean Platelet Volume 13.3 fL (9.4-12.4); Red Blood Count 2.69 M/mcL (3.82-4.97); Red Cell Distribution Width 15.5 % (11.5-14.5); White Blood Count 25.3 K/mcL (4.3-11.1)
[2021-07-06 04:13] LABS: BUN/Creatinine Ratio 24 (6-26); Blood Urea Nitrogen 25 mg/dL (6-20); Calcium 8.3 mg/dL (8.6-10.3); Carbon Dioxide 27 mEq/L (23-29); Chloride 121 mEq/L (98-107); Glucose 217 mg/dL (70-105); Osmolality,Calculated 329 (280-300); Potassium 3.9 mEq/L (3.5-5.1); Sodium 154 mEq/L (136-145); eGFR For African Americans > 60 (> 60); eGFR For Non-African Americans 56 (> 60)
[2021-07-06] MEDS: D5% in Water 1,000 ML IVC SCH ×4 (04:15→20:09)
[2021-07-06] MEDS: *HR* Heparin 5,000 UNIT/ML VIAL SQ SCH ×3 (05:03→21:38)
[2021-07-06] MEDS: Metoclopramide 10 MG/2 ML VIAL IVP SCH ×4 (05:03→23:35)
[2021-07-06] MEDS ORDERED: *HR* Metoprolol 5 MG/5 ML VIAL IVP PRN (07:28)
[2021-07-06] MEDS: Lithium Carbonate 300 MG CAPSULE PO SCH ×3 (09:36→23:35)
[2021-07-06] MEDS: Micafungin 100 MG in 0.9 % Sodium Chloride Mini Bag 100 ML IVPB SCH (09:43)
[2021-07-06] MEDS: Chlorhexidine Rinse 15 ML MOUTHWASH MM SCH ×2 (09:53→20:10)
[2021-07-06] MEDS: Pantoprazole 40 MG VIAL IVP SCH (09:53)
[2021-07-06 12:50] LABS: BUN/Creatinine Ratio 27 (6-26); Blood Urea Nitrogen 26 mg/dL (6-20); Calcium 8.2 mg/dL (8.6-10.3); Carbon Dioxide 27 mEq/L (23-29); Chloride 120 mEq/L (98-107); Glucose 194 mg/dL (70-105); Osmolality,Calculated 324 (280-300); Potassium 3.6 mEq/L (3.5-5.1); Sodium 152 mEq/L (136-145); eGFR For African Americans > 60 (> 60); eGFR For Non-African Americans > 60 (> 60)
[2021-07-06] MEDS ORDERED: Vancomycin 1,250 MG/262.5 ML IV.SOLN IVPB SCH (14:00)
[2021-07-06] MEDS: Vancomycin 1,250 MG in D5% in Water 250 ML IVPB SCH (14:59)
[2021-07-06] MEDS ORDERED: Clinimix E 5%-15% SOLUTION 2,000 ML with MVI, adult with vitamin K 10 ML IV SCH (17:00)
[2021-07-06] MEDS: methocarbamoL 500 MG TABLET GTUBE SCH (20:09)
[2021-07-06] MEDS: Mirtazapine 15 MG TABLET GTUBE SCH (20:09)
[2021-07-06 20:37] LABS: BUN/Creatinine Ratio 27 (6-26); Blood Urea Nitrogen 26 mg/dL (6-20); Calcium 8.1 mg/dL (8.6-10.3); Carbon Dioxide 27 mEq/L (23-29); Chloride 117 mEq/L (98-107); Glucose 174 mg/dL (70-105); Osmolality,Calculated 317 (280-300); Potassium 3.7 mEq/L (3.5-5.1); Sodium 149 mEq/L (136-145); eGFR For African Americans > 60 (> 60); eGFR For Non-African Americans > 60 (> 60)
[2021-07-07] MEDS: Vancomycin 1,250 MG in D5% in Water 250 ML IVPB SCH ×2 (03:00→16:56)
[2021-07-07] MEDS: D5% in Water 1,000 ML IVC SCH ×5 (03:00→22:48)
[2021-07-07] MEDS: Piperacillin/Tazobactam 3.375 GM in 0.9 % Sodium Chloride Mini Bag 100 ML IVPB SCH ×3 (03:00→16:38)
[2021-07-07] MEDS: Insulin LISPRO 300 UNITS/3 ML VIAL SUBQ SCH ×6 (03:33→23:35)
[2021-07-07 03:53] LABS: Hematocrit 26.7 % (35.3-44.9); Hemoglobin 8.5 g/dL (11.5-15.4); Immature Platelets 18.5 % (1.1-6.1); Mean Corpuscular HGB Conc 31.8 g/dL (31.6-35.5); Mean Corpuscular Hemoglobin 29.2 pg (28.0-33.3); Mean Corpuscular Volume 91.8 fL (83.0-100.0); Mean Platelet Volume 13.4 fL (9.4-12.4); Red Blood Count 2.91 M/mcL (3.82-4.97); Red Cell Distribution Width 15.2 % (11.5-14.5)
[2021-07-07 03:59] LABS: BUN/Creatinine Ratio 26 (6-26); Blood Urea Nitrogen 28 mg/dL (6-20); Calcium 7.9 mg/dL (8.6-10.3); Carbon Dioxide 26 mEq/L (23-29); Chloride 116 mEq/L (98-107); Glucose 204 mg/dL (70-105); Magnesium 2.1 mg/dL (1.6-2.6); Osmolality,Calculated 315 (280-300); Potassium 3.9 mEq/L (3.5-5.1); Sodium 147 mEq/L (136-145); eGFR For African Americans > 60 (> 60); eGFR For Non-African Americans 56 (> 60)
[2021-07-07] MEDS: *HR* Heparin 5,000 UNIT/ML VIAL SQ SCH ×3 (05:31→21:03)
[2021-07-07] MEDS: Metoclopramide 10 MG/2 ML VIAL IVP SCH ×3 (05:31→16:57)
[2021-07-07] MEDS: Chlorhexidine Rinse 15 ML MOUTHWASH MM SCH ×2 (09:08→21:03)
[2021-07-07] MEDS: Pantoprazole 40 MG VIAL IVP SCH (09:08)
[2021-07-07] MEDS: Micafungin 100 MG in 0.9 % Sodium Chloride Mini Bag 100 ML IVPB SCH (09:09)
[2021-07-07] MEDS: Lithium Carbonate 300 MG CAPSULE PO SCH ×2 (09:10→16:39)
[2021-07-07] MEDS ORDERED: 0.9 % Sodium Chloride 250 ML IVC SCH ×2 (11:30→18:51)
[2021-07-07 13:48] LABS: Hematocrit 25.5 % (35.3-44.9); Hemoglobin 8.1 g/dL (11.5-15.4); Mean Corpuscular HGB Conc 31.8 g/dL (31.6-35.5); Mean Corpuscular Hemoglobin 29.2 pg (28.0-33.3); Mean Corpuscular Volume 92.1 fL (83.0-100.0); Mean Platelet Volume 13.3 fL (9.4-12.4); Platelet Count 263 K/mcL (140-400); Red Blood Count 2.77 M/mcL (3.82-4.97); Red Cell Distribution Width 14.9 % (11.5-14.5)
[2021-07-07 13:58] LABS: White Blood Count 30.2 K/mcL (4.3-11.1)
[2021-07-07 14:09] LABS: BUN/Creatinine Ratio 29 (6-26); Blood Urea Nitrogen 29 mg/dL (6-20); Calcium 7.9 mg/dL (8.6-10.3); Carbon Dioxide 25 mEq/L (23-29); Chloride 116 mEq/L (98-107); Glucose 192 mg/dL (70-105); Osmolality,Calculated 313 (280-300); Potassium 3.8 mEq/L (3.5-5.1); Sodium 146 mEq/L (136-145); eGFR For African Americans > 60 (> 60); eGFR For Non-African Americans > 60 (> 60)
[2021-07-07] MEDS ORDERED: Lidocaine -MPF 2% 2 ML VIAL ONE (14:09)
[2021-07-07] MEDS ORDERED: Ondansetron 4 MG/2 ML VIAL ONE (14:09)
[2021-07-07] MEDS ORDERED: *HR* Propofol 200 MG/20 ML VIAL IVP ONE (14:09)
[2021-07-07] MEDS ORDERED: *HR* Rocuronium Bromide 50 MG/5 ML VIAL ONE (14:09)
[2021-07-07] MEDS ORDERED: *HR* FentaNYL (PF) 100 MCG/2 ML VIAL ONE (14:09)
[2021-07-07 14:23] LABS: Eosinophils # 0.3 K/mcL (0.0-0.6); Lymphocytes # 1.5 K/mcL (0.6-4.6); Monocytes # 1.2 K/mcL (0.0-1.3); Neutrophils # 27.2 K/mcL (1.6-8.9); Platelet Estimate Normal (Normal)
[2021-07-07 14:24] LABS: Hypochromasia Present (Not Present); Large Platelets Present (Not Present)
[2021-07-07] MEDS ORDERED: CefOXitin 1,000 MG VIAL ONE (15:20)
[2021-07-07] MEDS ORDERED: Sugammadex Sodium 200 MG/2 ML VIAL IV ONE (15:45)
[2021-07-07] MEDS ORDERED: Clinimix E 5%-15% SOLUTION 2,000 ML with MVI, adult with vitamin K 10 ML IV SCH ×2 (17:00→18:51)
[2021-07-07] MEDS: *HR* HYDROmorphone (PF) 1 MG/ML SYRINGE IVP PRN ×2 (18:23→23:34)
[2021-07-07] MEDS ORDERED: *HR* Dextrose 50 % in Water (Syg) 50 ML SYRINGE IVP PRN (18:51)
[2021-07-07] MEDS ORDERED: *HR* Metoprolol 5 MG/5 ML VIAL IVP PRN (18:51)
[2021-07-07] MEDS ORDERED: D5% in Water 1,000 ML IVC PRN (18:51)
[2021-07-07] MEDS ORDERED: D10% in Water 500 ML IVC PRN (18:51)
[2021-07-07 20:24] LABS: Hemoglobin 8.8 g/dL (11.5-15.4)
[2021-07-07 20:26] LABS: Hematocrit 27.9 % (35.3-44.9); Immature Platelets 18.7 % (1.1-6.1); Mean Corpuscular HGB Conc 31.5 g/dL (31.6-35.5); Mean Corpuscular Hemoglobin 29.4 pg (28.0-33.3); Mean Corpuscular Volume 93.3 fL (83.0-100.0); Mean Platelet Volume 13.3 fL (9.4-12.4); Platelet Count 315 K/mcL (140-400); Red Blood Count 2.99 M/mcL (3.82-4.97); Red Cell Distribution Width 15.2 % (11.5-14.5)
[2021-07-07 20:31] LABS: White Blood Count 40.3 K/mcL (4.3-11.1)
[2021-07-07 20:49] LABS: BUN/Creatinine Ratio 28 (6-26); Blood Urea Nitrogen 28 mg/dL (6-20); Calcium 7.3 mg/dL (8.6-10.3); Carbon Dioxide 23 mEq/L (23-29); Chloride 115 mEq/L (98-107); Glucose 279 mg/dL (70-105); Osmolality,Calculated 312 (280-300); Potassium 4.3 mEq/L (3.5-5.1); Sodium 143 mEq/L (136-145); eGFR For African Americans > 60 (> 60); eGFR For Non-African Americans > 60 (> 60)
[2021-07-07] MEDS: Mirtazapine 15 MG TABLET GTUBE SCH (21:04)
[2021-07-07] MEDS: methocarbamoL 500 MG TABLET GTUBE SCH (21:04)
[2021-07-07 22:08] LABS: Lymphocytes # 1.6 K/mcL (0.6-4.6); Neutrophils # 38.7 K/mcL (1.6-8.9)
[2021-07-07] MEDS: Ondansetron 4 MG/2 ML VIAL IVP PRN (23:35)
[2021-07-08] MEDS: Piperacillin/Tazobactam 3.375 GM in 0.9 % Sodium Chloride Mini Bag 100 ML IVPB SCH ×3 (02:39→17:02)
[2021-07-08] MEDS: Lithium Carbonate 300 MG CAPSULE PO SCH ×4 (02:47→23:49)
[2021-07-08] MEDS: Metoclopramide 10 MG/2 ML VIAL IVP SCH ×5 (02:47→23:47)
[2021-07-08 03:16] LABS: Amylase 190 Units/L (29-103); BUN/Creatinine Ratio 28 (6-26); Blood Urea Nitrogen 29 mg/dL (6-20); Calcium 7.5 mg/dL (8.6-10.3); Carbon Dioxide 23 mEq/L (23-29); Chloride 115 mEq/L (98-107); Glucose 207 mg/dL (70-105); Lipase 130 Units/L (11-82); Magnesium 2.1 mg/dL (1.6-2.6); Osmolality,Calculated 308 (280-300); Potassium 4.3 mEq/L (3.5-5.1); Sodium 143 mEq/L (136-145); Vancomycin,Trough 18 mcg/mL (5-10); eGFR For African Americans > 60 (> 60); eGFR For Non-African Americans 57 (> 60)
[2021-07-08] MEDS: Vancomycin 1,250 MG in D5% in Water 250 ML IVPB SCH ×2 (03:35→15:41)
[2021-07-08 04:05] LABS: Basophils % 0.3 %; Eosinophils # 0.1 K/mcL (0.0-0.6); Eosinophils % 0.2 %; Lymphocytes % 4.9 %; Nucleated Red Blood Cells 1.3 /100 WBC (0); Red Cell Distribution Width 15.1 % (11.5-14.5)
[2021-07-08 04:06] LABS: Basophils # 0.1 K/mcL (0.0-0.2); Hematocrit 25.3 % (35.3-44.9); Immature Granulocytes % 3.1 % (0-4); Immature Platelets 20.1 % (1.1-6.1); Mean Corpuscular HGB Conc 31.6 g/dL (31.6-35.5); Mean Corpuscular Hemoglobin 29.4 pg (28.0-33.3); Mean Platelet Volume 13.6 fL (9.4-12.4); Platelet Count 322 K/mcL (140-400); Red Blood Count 2.72 M/mcL (3.82-4.97); Segmented Neutrophils % 86.5 %
[2021-07-08 04:12] LABS: Neutrophils # 34.3 K/mcL (1.6-8.9); White Blood Count 39.7 K/mcL (4.3-11.1)
[2021-07-08 04:46] LABS: Anisocytosis 1+ (Not Present); Large Platelets Present (Not Present)
[2021-07-08 04:47] LABS: Platelet Estimate Normal (Normal)
[2021-07-08] MEDS: *HR* Heparin 5,000 UNIT/ML VIAL SQ SCH ×3 (04:58→21:20)
[2021-07-08] MEDS: Insulin LISPRO 300 UNITS/3 ML VIAL SUBQ SCH ×6 (04:59→23:50)
[2021-07-08] MEDS: Pantoprazole 40 MG VIAL IVP SCH (08:28)
[2021-07-08] MEDS: Micafungin 100 MG in 0.9 % Sodium Chloride Mini Bag 100 ML IVPB SCH (08:28)
[2021-07-08] MEDS: Chlorhexidine Rinse 15 ML MOUTHWASH MM SCH ×2 (08:28→19:46)
[2021-07-08] MEDS ORDERED: Clinimix E 5%-15% SOLUTION 2,000 ML with MVI, adult with vitamin K 10 ML IV SCH (17:00)
[2021-07-08] MEDS: *HR* HYDROmorphone (PF) 1 MG/ML SYRINGE IVP PRN ×2 (19:42→21:00)
[2021-07-08] MEDS: Mirtazapine 15 MG TABLET GTUBE SCH (19:44)
[2021-07-08] MEDS: methocarbamoL 500 MG TABLET GTUBE SCH (19:44)
[2021-07-09] MEDS: Piperacillin/Tazobactam 3.375 GM in 0.9 % Sodium Chloride Mini Bag 100 ML IVPB SCH ×3 (01:58→17:46)
[2021-07-09] MEDS: Vancomycin 1,250 MG in D5% in Water 250 ML IVPB SCH ×2 (01:58→15:59)
[2021-07-09 03:35] LABS: Basophils % 0.3 %; Mean Platelet Volume 13.2 fL (9.4-12.4)
[2021-07-09 03:36] LABS: Basophils # 0.1 K/mcL (0.0-0.2); Eosinophils # 0.4 K/mcL (0.0-0.6); Eosinophils % 0.9 %; Hematocrit 23.1 % (35.3-44.9); Hemoglobin 7.1 g/dL (11.5-15.4); Immature Granulocytes % 2.7 % (0-4); Immature Platelets 16.1 % (1.1-6.1); Lymphocytes # 2.3 K/mcL (0.6-4.6); Lymphocytes % 5.8 %; Mean Corpuscular HGB Conc 30.7 g/dL (31.6-35.5); Mean Corpuscular Hemoglobin 29.5 pg (28.0-33.3); Mean Corpuscular Volume 95.9 fL (83.0-100.0); Monocytes # 2.3 K/mcL (0.0-1.3); Neutrophils # 32.7 K/mcL (1.6-8.9); Nucleated Red Blood Cells 1.2 /100 WBC (0); Platelet Count 443 K/mcL (140-400); Red Blood Count 2.41 M/mcL (3.82-4.97); Red Cell Distribution Width 15.4 % (11.5-14.5); Segmented Neutrophils % 84.3 %
[2021-07-09 03:45] LABS: White Blood Count 38.8 K/mcL (4.3-11.1)
[2021-07-09 03:51] LABS: BUN/Creatinine Ratio 26 (6-26); Blood Urea Nitrogen 29 mg/dL (6-20); Calcium 7.8 mg/dL (8.6-10.3); Carbon Dioxide 23 mEq/L (23-29); Chloride 115 mEq/L (98-107); Glucose 208 mg/dL (70-105); Magnesium 2.2 mg/dL (1.6-2.6); Osmolality,Calculated 308 (280-300); Potassium 3.9 mEq/L (3.5-5.1); Sodium 143 mEq/L (136-145); eGFR For African Americans > 60 (> 60); eGFR For Non-African Americans 53 (> 60)
[2021-07-09] MEDS: Insulin LISPRO 300 UNITS/3 ML VIAL SUBQ SCH ×6 (04:19→23:53)
[2021-07-09] MEDS: Metoclopramide 10 MG/2 ML VIAL IVP SCH ×4 (05:07→23:54)
[2021-07-09] MEDS: *HR* Heparin 5,000 UNIT/ML VIAL SQ SCH ×3 (05:07→22:03)
[2021-07-09] MEDS: *HR* HYDROmorphone (PF) 1 MG/ML SYRINGE IVP PRN ×3 (05:08→19:57)
[2021-07-09] MEDS ORDERED: 0.9 % Sodium Chloride 250 ML ONE (06:26)
[2021-07-09 07:32] LABS: Phosphorous 3.1 mg/dL (2.7-4.5); Triglycerides 519 mg/dL (< 150)
[2021-07-09] MEDS: Lithium Carbonate 300 MG CAPSULE PO SCH ×3 (08:18→23:53)
[2021-07-09] MEDS: Micafungin 100 MG in 0.9 % Sodium Chloride Mini Bag 100 ML IVPB SCH (08:18)
[2021-07-09] MEDS: Chlorhexidine Rinse 15 ML MOUTHWASH MM SCH ×2 (08:18→20:06)
[2021-07-09] MEDS: Pantoprazole 40 MG VIAL IVP SCH (08:19)
[2021-07-09] MEDS ORDERED: Clinimix E 5%-15% SOLUTION 2,000 ML with MVI, adult with vitamin K 10 ML IV SCH (17:00)
[2021-07-09] MEDS: Mirtazapine 15 MG TABLET GTUBE SCH (19:57)
[2021-07-09] MEDS: methocarbamoL 500 MG TABLET GTUBE SCH (19:57)
[2021-07-10] MEDS: *HR* HYDROmorphone (PF) 1 MG/ML SYRINGE IVP PRN ×4 (02:14→19:33)
[2021-07-10] MEDS: Piperacillin/Tazobactam 3.375 GM in 0.9 % Sodium Chloride Mini Bag 100 ML IVPB SCH ×3 (02:15→17:51)
[2021-07-10] MEDS: Vancomycin 1,250 MG in D5% in Water 250 ML IVPB SCH ×2 (02:15→19:09)
[2021-07-10 03:21] LABS: Bacteria,Urine Few per hpf (None-Few); Bilirubin,Urine Negative (Negative); Blood,Urine Small (Negative); Clarity,Urine Turbid (Clear); Color,Urine Light-Yellow (Yellow); Glucose,Urine (UA) Normal (Normal); Ketones,Urine Negative (Negative); Leukocyte Esterase,Urine Small (Negative); Nitrite,Urine Negative (Negative); PH,Urine 6.5 pH Units (5.0-8.0); Protein,Urine 30 mg/dL (Neg-Trace); Specific Gravity,Urine 1.011 (1.010-1.025); Squamous Epithelial Cell,Urine Few per hpf (None-Few); Urobilinogen,Urine Normal (Normal)
[2021-07-10 03:29] LABS: Basophils % 0.3 %; Eosinophils % 0.8 %; Hematocrit 25.9 % (35.3-44.9); Lymphocytes % 5.5 %; Nucleated Red Blood Cells 0.7 /100 WBC (0); Red Cell Distribution Width 18.6 % (11.5-14.5)
[2021-07-10 03:31] LABS: Basophils # 0.1 K/mcL (0.0-0.2); Eosinophils # 0.2 K/mcL (0.0-0.6); Hemoglobin 8.1 g/dL (11.5-15.4); Immature Granulocytes % 2.5 % (0-4); Lymphocytes # 1.6 K/mcL (0.6-4.6); Mean Corpuscular HGB Conc 31.3 g/dL (31.6-35.5); Mean Corpuscular Hemoglobin 28.8 pg (28.0-33.3); Mean Corpuscular Volume 92.2 fL (83.0-100.0); Mean Platelet Volume 12.6 fL (9.4-12.4); Monocytes % 6.8 %; Platelet Count 504 K/mcL (140-400); Red Blood Count 2.81 M/mcL (3.82-4.97); Segmented Neutrophils % 84.1 %; White Blood Count 29.7 K/mcL (4.3-11.1)
[2021-07-10 03:47] LABS: Alanine Aminotransferase 27 Units/L (7-52); Albumin 2.2 g/dL (3.5-5.7); Albumin/Globulin Ratio 0.8 (1.1-2.2); Alkaline Phosphatase 86 Units/L (34-104); Amylase 159 Units/L (29-103); Aspartate Amino Transferase 31 Units/L (13-39); Bilirubin,Direct 0.6 mg/dL (0.0-0.2); Bilirubin,Indirect 0.4 mg/dL (0.0-1.0); Globulin 2.9 g/dL (2.4-3.5); Lipase 67 Units/L (11-82); Total Protein 5.1 g/dL (6.4-8.9)
[2021-07-10] MEDS: Insulin LISPRO 300 UNITS/3 ML VIAL SUBQ SCH ×6 (04:42→23:45)
[2021-07-10] MEDS: *HR* Heparin 5,000 UNIT/ML VIAL SQ SCH ×3 (05:56→20:55)
[2021-07-10] MEDS: Metoclopramide 10 MG/2 ML VIAL IVP SCH ×4 (05:56→23:34)
[2021-07-10] MEDS: Chlorhexidine Rinse 15 ML MOUTHWASH MM SCH (08:10)
[2021-07-10] MEDS: Micafungin 100 MG in 0.9 % Sodium Chloride Mini Bag 100 ML IVPB SCH (08:11)
[2021-07-10] MEDS: Pantoprazole 40 MG VIAL IVP SCH (08:11)
[2021-07-10] MEDS: Lithium Carbonate 300 MG CAPSULE PO SCH ×3 (08:16→23:34)
[2021-07-10 13:14] LABS: BUN/Creatinine Ratio 27 (6-26); Blood Urea Nitrogen 29 mg/dL (6-20); Carbon Dioxide 21 mEq/L (23-29); Chloride 117 mEq/L (98-107); Glucose 180 mg/dL (70-105); Osmolality,Calculated 312 (280-300); Sodium 146 mEq/L (136-145); eGFR For African Americans > 60 (> 60); eGFR For Non-African Americans 55 (> 60)
[2021-07-10] MEDS ORDERED: Clinimix E 5%-15% SOLUTION 2,000 ML with MVI, adult with vitamin K 10 ML IV SCH (17:00)
[2021-07-10] MEDS: Ondansetron 4 MG/2 ML VIAL IVP PRN (20:05)
[2021-07-10] MEDS: *HR* OxyCODONE Oral Soln 5 MG/5 ML UD.LIQ PO PRN (20:15)
[2021-07-10] MEDS: methocarbamoL 500 MG TABLET GTUBE SCH (20:55)
[2021-07-10] MEDS: Mirtazapine 15 MG TABLET GTUBE SCH (20:55)
[2021-07-11] MEDS: Piperacillin/Tazobactam 3.375 GM in 0.9 % Sodium Chloride Mini Bag 100 ML IVPB SCH ×2 (02:38→09:53)
[2021-07-11 03:35] LABS: Hemoglobin 8.4 g/dL (11.5-15.4); Red Cell Distribution Width 18.2 % (11.5-14.5)
[2021-07-11 03:36] LABS: Hematocrit 27.5 % (35.3-44.9); Mean Corpuscular HGB Conc 30.5 g/dL (31.6-35.5); Mean Corpuscular Hemoglobin 28.4 pg (28.0-33.3); Mean Corpuscular Volume 92.9 fL (83.0-100.0); Mean Platelet Volume 12.4 fL (9.4-12.4); Platelet Count 656 K/mcL (140-400); Red Blood Count 2.96 M/mcL (3.82-4.97)
[2021-07-11 03:56] LABS: BUN/Creatinine Ratio 27 (6-26); Blood Urea Nitrogen 30 mg/dL (6-20); Calcium 8.3 mg/dL (8.6-10.3); Carbon Dioxide 22 mEq/L (23-29); Chloride 118 mEq/L (98-107); Glucose 183 mg/dL (70-105); Magnesium 2.5 mg/dL (1.6-2.6); Osmolality,Calculated 315 (280-300); Phosphorous 3.6 mg/dL (2.7-4.5); Potassium 4.1 mEq/L (3.5-5.1); Sodium 147 mEq/L (136-145); eGFR For African Americans > 60 (> 60); eGFR For Non-African Americans 52 (> 60)
[2021-07-11] MEDS: *HR* HYDROmorphone (PF) 1 MG/ML SYRINGE IVP PRN (04:07)
[2021-07-11] MEDS: Insulin LISPRO 300 UNITS/3 ML VIAL SUBQ SCH ×5 (04:53→20:29)
[2021-07-11] MEDS: Metoclopramide 10 MG/2 ML VIAL IVP SCH ×3 (05:42→17:04)
[2021-07-11] MEDS: *HR* Heparin 5,000 UNIT/ML VIAL SQ SCH ×3 (05:42→22:17)
[2021-07-11] MEDS: *HR* OxyCODONE Oral Soln 5 MG/5 ML UD.LIQ PO PRN (05:49)
[2021-07-11] MEDS: Pantoprazole 40 MG VIAL IVP SCH (08:02)
[2021-07-11] MEDS: Micafungin 100 MG in 0.9 % Sodium Chloride Mini Bag 100 ML IVPB SCH (08:03)
[2021-07-11] MEDS: Lithium Carbonate 300 MG CAPSULE PO SCH ×2 (08:03→15:34)
[2021-07-11] MEDS ORDERED: Furosemide 20 MG/2 ML VIAL IVP ONE (09:00)
[2021-07-11] MEDS: D5% in Water 500 ML IVC SCH (12:23)
[2021-07-11] MEDS ORDERED: Vancomycin 1,000 MG in D5% in Water 250 ML IVPB SCH (14:00)
[2021-07-11] MEDS: Vancomycin 1,000 MG in D5% in Water 250 ML IVPB SCH (15:32)
[2021-07-11] MEDS ORDERED: Clinimix E 5%-15% SOLUTION 2,000 ML with MVI, adult with vitamin K 10 ML IV SCH (17:00)
[2021-07-11] MEDS: Piperacillin/Tazobactam 3.375 GM in D5% in Water 100 ML IVPB SCH (17:03)
[2021-07-11] MEDS: Mirtazapine 15 MG TABLET GTUBE SCH (20:18)
[2021-07-11] MEDS: methocarbamoL 500 MG TABLET GTUBE SCH (20:18)
[2021-07-12] MEDS: Insulin LISPRO 300 UNITS/3 ML VIAL SUBQ SCH ×7 (00:15→23:59)
[2021-07-12] MEDS: Metoclopramide 10 MG/2 ML VIAL IVP SCH ×5 (00:18→23:58)
[2021-07-12] MEDS: Lithium Carbonate 300 MG CAPSULE PO SCH ×4 (00:18→23:58)
[2021-07-12] MEDS: Vancomycin 1,000 MG in D5% in Water 250 ML IVPB SCH ×2 (04:05→16:28)
[2021-07-12] MEDS: Piperacillin/Tazobactam 3.375 GM in D5% in Water 100 ML IVPB SCH ×3 (04:05→18:00)
[2021-07-12 04:19] LABS: Mean Corpuscular Volume 93.5 fL (83.0-100.0); Mean Platelet Volume 12.1 fL (9.4-12.4); Red Cell Distribution Width 17.9 % (11.5-14.5)
[2021-07-12 04:20] LABS: Hematocrit 25.8 % (35.3-44.9); Platelet Count 730 K/mcL (140-400); Red Blood Count 2.76 M/mcL (3.82-4.97); White Blood Count 28.1 K/mcL (4.3-11.1)
[2021-07-12 04:40] LABS: Calcium 8.6 mg/dL (8.6-10.3); Magnesium 2.4 mg/dL (1.6-2.6); Phosphorous 3.8 mg/dL (2.7-4.5); Potassium 3.8 mEq/L (3.5-5.1)
[2021-07-12] MEDS: *HR* Heparin 5,000 UNIT/ML VIAL SQ SCH ×3 (05:28→22:53)
[2021-07-12] MEDS: D5% in Water 500 ML IVC SCH ×3 (09:02→18:43)
[2021-07-12] MEDS: WATER IVPB SCH (09:07)
[2021-07-12] MEDS: D5 IVPB SCH (09:07)
[2021-07-12] MEDS: MICAFUNGIN IVPB SCH (09:07)
[2021-07-12] MEDS: Pantoprazole 40 MG VIAL IVP SCH (09:08)
[2021-07-12] MEDS ORDERED: *HR* HYDROmorphone (PF) 1 MG/ML SYRINGE IVP ONE (10:37)
[2021-07-12 10:41] LABS: ABG Base Excess -1 mEq/L (-2 to 3); ABG HCO3 22 mEq/L (21-27); ABG Oxygen Saturation 96 % (95-98); ABG PCO2 31 mmHg (35-45); ABG PH 7.47 pH Units (7.32-7.45); ABG PO2 75 mmHg (85-104); ABG TCO2 23 mEq/L (20-26)
[2021-07-12] MEDS ORDERED: Clinimix E 5%-15% SOLUTION 2,000 ML with MVI, adult with vitamin K 10 ML IV SCH (17:00)
[2021-07-12] MEDS: Mirtazapine 15 MG TABLET GTUBE SCH (20:21)
[2021-07-12] MEDS: traZODone 50 MG TABLET PO SCH (20:21)
[2021-07-12] MEDS: methocarbamoL 500 MG TABLET GTUBE SCH (20:21)
[2021-07-13] MEDS: Insulin LISPRO 300 UNITS/3 ML VIAL SUBQ SCH ×5 (04:18→19:42)
[2021-07-13] MEDS: Vancomycin 1,000 MG in D5% in Water 250 ML IVPB SCH ×2 (04:22→15:51)
[2021-07-13] MEDS: Piperacillin/Tazobactam 3.375 GM in D5% in Water 100 ML IVPB SCH ×3 (04:22→17:12)
[2021-07-13 04:43] LABS: Hematocrit 25.7 % (35.3-44.9); Hemoglobin 7.8 g/dL (11.5-15.4); Mean Corpuscular HGB Conc 30.4 g/dL (31.6-35.5); Mean Corpuscular Hemoglobin 28.5 pg (28.0-33.3); Mean Corpuscular Volume 93.8 fL (83.0-100.0); Platelet Count 739 K/mcL (140-400); Red Blood Count 2.74 M/mcL (3.82-4.97); Red Cell Distribution Width 17.4 % (11.5-14.5); White Blood Count 18.7 K/mcL (4.3-11.1)
[2021-07-13 05:02] LABS: BUN/Creatinine Ratio 28 (6-26); Blood Urea Nitrogen 32 mg/dL (6-20); Calcium 8.8 mg/dL (8.6-10.3); Carbon Dioxide 22 mEq/L (23-29); Chloride 116 mEq/L (98-107); Glucose 174 mg/dL (70-105); Magnesium 2.5 mg/dL (1.6-2.6); Osmolality,Calculated 313 (280-300); Phosphorous 3.2 mg/dL (2.7-4.5); Potassium 3.9 mEq/L (3.5-5.1); Sodium 146 mEq/L (136-145); eGFR For African Americans > 60 (> 60); eGFR For Non-African Americans 52 (> 60)
[2021-07-13] MEDS: Metoclopramide 10 MG/2 ML VIAL IVP SCH ×4 (05:55→23:46)
[2021-07-13] MEDS: *HR* Heparin 5,000 UNIT/ML VIAL SQ SCH ×3 (05:55→21:51)
[2021-07-13] MEDS: D5% in Water 500 ML IVC SCH ×2 (08:56→12:49)
[2021-07-13] MEDS: D5 IVPB SCH (08:58)
[2021-07-13] MEDS: WATER IVPB SCH (08:58)
[2021-07-13] MEDS: Lithium Carbonate 300 MG CAPSULE PO SCH ×3 (08:58→23:47)
[2021-07-13] MEDS: MICAFUNGIN IVPB SCH (08:58)
[2021-07-13] MEDS: Pantoprazole 40 MG VIAL IVP SCH (09:02)
[2021-07-13] MEDS ORDERED: Clinimix E 5%-15% SOLUTION 2,000 ML with MVI, adult with vitamin K 10 ML IV SCH (17:00)
[2021-07-13] MEDS: Mirtazapine 15 MG TABLET GTUBE SCH (19:44)
[2021-07-13] MEDS: traZODone 50 MG TABLET PO SCH (19:44)
[2021-07-13] MEDS: methocarbamoL 500 MG TABLET GTUBE SCH (19:44)
[2021-07-14] MEDS: Insulin LISPRO 300 UNITS/3 ML VIAL SUBQ SCH ×5 (00:09→21:48)
[2021-07-14] MEDS: Piperacillin/Tazobactam 3.375 GM in D5% in Water 100 ML IVPB SCH ×2 (02:18→10:48)
[2021-07-14] MEDS: Vancomycin 1,000 MG in D5% in Water 250 ML IVPB SCH ×2 (02:19→15:29)
[2021-07-14 03:42] LABS: Hematocrit 25.2 % (35.3-44.9); Hemoglobin 7.6 g/dL (11.5-15.4); Mean Corpuscular HGB Conc 30.2 g/dL (31.6-35.5); Mean Corpuscular Hemoglobin 28.1 pg (28.0-33.3); Mean Corpuscular Volume 93.3 fL (83.0-100.0); Mean Platelet Volume 11.8 fL (9.4-12.4); Platelet Count 793 K/mcL (140-400); White Blood Count 16.6 K/mcL (4.3-11.1)
[2021-07-14 04:03] LABS: Calcium 8.7 mg/dL (8.6-10.3); Magnesium 2.4 mg/dL (1.6-2.6); Phosphorous 3.4 mg/dL (2.7-4.5)
[2021-07-14] MEDS: Metoclopramide 10 MG/2 ML VIAL IVP SCH (05:42)
[2021-07-14] MEDS: *HR* Heparin 5,000 UNIT/ML VIAL SQ SCH ×3 (05:42→22:36)
[2021-07-14] MEDS: Lithium Carbonate 300 MG CAPSULE PO SCH ×2 (09:27→16:30)
[2021-07-14] MEDS: D5 IVPB SCH (09:28)
[2021-07-14] MEDS: WATER IVPB SCH (09:28)
[2021-07-14] MEDS: MICAFUNGIN IVPB SCH (09:28)
[2021-07-14] MEDS: Pantoprazole 40 MG VIAL IVP SCH (09:30)
[2021-07-14] MEDS ORDERED: *HR* Propofol 200 MG/20 ML VIAL IVP ONE (12:58)
[2021-07-14] MEDS ORDERED: *HR* Rocuronium Bromide 50 MG/5 ML VIAL ONE ×2 (12:58→16:53)
[2021-07-14] MEDS ORDERED: Lidocaine -MPF 2% 2 ML VIAL ONE (12:58)
[2021-07-14] MEDS ORDERED: *HR* FentaNYL (PF) 100 MCG/2 ML VIAL ONE ×2 (12:58→17:17)
[2021-07-14] MEDS ORDERED: *HR* Midazolam HCl 2 MG/2 ML VIAL ONE (13:28)
[2021-07-14] MEDS ORDERED: *HR* Norepinephrine 4 MG/4 ML VIAL IVC ONE (13:29)
[2021-07-14] MEDS ORDERED: Albumin Human 5% 0 GM/0 ML IV.SOLN ONE (13:29)
[2021-07-14] MEDS ORDERED: D5% in Water 250 ML ONE (13:59)
[2021-07-14] MEDS ORDERED: Vancomycin 1,000 MG VIAL ONE (16:31)
[2021-07-14] MEDS ORDERED: Clinimix E 5%-15% SOLUTION 2,000 ML with MVI, adult with vitamin K 10 ML IV SCH ×2 (17:00→18:13)
[2021-07-14] MEDS ORDERED: *HR* OxyCODONE Oral Soln 5 MG/5 ML UD.LIQ PO PRN (18:13)
[2021-07-14] MEDS ORDERED: *HR* Dextrose 50 % in Water (Syg) 50 ML SYRINGE IVP PRN (18:13)
[2021-07-14] MEDS ORDERED: D5% in Water 1,000 ML IVC PRN (18:13)
[2021-07-14] MEDS ORDERED: D10% in Water 500 ML IVC PRN (18:13)
[2021-07-14] MEDS ORDERED: Ondansetron 4 MG/2 ML VIAL IVP PRN (18:13)
[2021-07-14] MEDS ORDERED: *HR* Metoprolol 5 MG/5 ML VIAL IVP ONE ×2 (18:24→18:28)
[2021-07-14] MEDS: FentaNYL (PF) 1,000 MCG/100 ML IV.SOLN IVC SCH (18:59)
[2021-07-14] MEDS ORDERED: traZODone 50 MG TABLET PO SCH (21:00)
[2021-07-14] MEDS: Mirtazapine 15 MG TABLET GTUBE SCH (22:08)
[2021-07-14] MEDS: methocarbamoL 500 MG TABLET GTUBE SCH (22:08)
[2021-07-14] MEDS: D5% in Water 500 ML IVC SCH (22:30)
[2021-07-15] MEDS: Insulin LISPRO 300 UNITS/3 ML VIAL SUBQ SCH ×6 (01:33→21:00)
[2021-07-15] MEDS: Piperacillin/Tazobactam 3.375 GM in D5% in Water 100 ML IVPB SCH ×3 (01:41→17:13)
[2021-07-15] MEDS: Metoclopramide 10 MG/2 ML VIAL IVP SCH ×4 (01:42→23:08)
[2021-07-15] MEDS: Lithium Carbonate 300 MG CAPSULE PO SCH ×4 (01:43→23:08)
[2021-07-15] MEDS ORDERED: Vancomycin 1,000 MG in D5% in Water 250 ML IVPB SCH (03:00)
[2021-07-15 04:47] LABS: ABG Base Excess -6 mEq/L (-2 to 3); ABG HCO3 19 mEq/L (21-27); ABG Oxygen Saturation 100 % (95-98); ABG PCO2 37 mmHg (35-45); ABG PH 7.32 pH Units (7.32-7.45); ABG PO2 493 mmHg (85-104); ABG TCO2 20 mEq/L (20-26); Blood Gas Modality ASSIST CONTROL; Blood Gas VT 450 cc
[2021-07-15 05:10] LABS: VBG Ionized Calcium 1.12 mmol/L (1.15-1.35)
[2021-07-15 05:12] LABS: Mean Corpuscular HGB Conc 30.6 g/dL (31.6-35.5); Mean Corpuscular Hemoglobin 28.8 pg (28.0-33.3); Mean Corpuscular Volume 93.9 fL (83.0-100.0); Mean Platelet Volume 11.9 fL (9.4-12.4); Platelet Count 733 K/mcL (140-400)
[2021-07-15 05:13] LABS: Hemoglobin 9.5 g/dL (11.5-15.4)
[2021-07-15] MEDS: D5% in Water 500 ML IVC SCH (05:15)
[2021-07-15 05:26] LABS: Calcium 7.8 mg/dL (8.6-10.3); Magnesium 2.4 mg/dL (1.6-2.6); Phosphorous 5.6 mg/dL (2.7-4.5); Potassium 4.7 mEq/L (3.5-5.1)
[2021-07-15] MEDS: *HR* Heparin 5,000 UNIT/ML VIAL SQ SCH ×3 (05:32→21:01)
[2021-07-15] MEDS: FentaNYL (PF) 1,000 MCG/100 ML IV.SOLN IVC SCH (07:15)
[2021-07-15] MEDS ORDERED: Ringers Solution, Lactated 500 ML IVC ONE (07:57)
[2021-07-15] MEDS: Ringers Solution, Lactated 1,000 ML IVC SCH (09:00)
[2021-07-15] MEDS ORDERED: MICAFUNGIN IVPB SCH (09:00)
[2021-07-15] MEDS ORDERED: D5 IVPB SCH (09:00)
[2021-07-15] MEDS ORDERED: WATER IVPB SCH (09:00)
[2021-07-15] MEDS: Pantoprazole 40 MG VIAL IVP SCH (09:07)
[2021-07-15] MEDS ORDERED: Dexmedetomidine HCl 400 MCG/100 ML MLS IVC ONE (09:44)
[2021-07-15] MEDS ORDERED: D5% in Water 100 ML ONE (09:44)
[2021-07-15] MEDS: Dexmedetomidine HCl 400 MCG/100 ML MLS IVC SCH ×2 (09:50→17:50)
[2021-07-15 15:03] LABS: Potassium 4.4 mEq/L (3.5-5.1)
[2021-07-15] MEDS ORDERED: Clinimix 5%-20% SOLUTION 2,000 ML with MVI, adult with vitamin K 10 ML, Sodium Acetat... IV SCH (17:00)
[2021-07-15] MEDS: Mirtazapine 15 MG TABLET GTUBE SCH (21:01)
[2021-07-15] MEDS: methocarbamoL 500 MG TABLET GTUBE SCH (21:01)
[2021-07-16] MEDS: Metoclopramide 10 MG/2 ML VIAL IVP SCH ×4 (00:51→16:18)
[2021-07-16] MEDS: Insulin LISPRO 300 UNITS/3 ML VIAL SUBQ SCH ×6 (00:51→20:05)
[2021-07-16] MEDS: Piperacillin/Tazobactam 3.375 GM in D5% in Water 100 ML IVPB SCH ×3 (01:45→16:29)
[2021-07-16] MEDS: *HR* HYDROmorphone (PF) 1 MG/ML SYRINGE IVP PRN ×4 (01:49→20:04)
[2021-07-16] MEDS: Dexmedetomidine HCl 400 MCG/100 ML MLS IVC SCH (02:47)
[2021-07-16 04:00] LABS: Hematocrit 30.8 % (35.3-44.9); Hemoglobin 9.3 g/dL (11.5-15.4); Mean Corpuscular HGB Conc 30.2 g/dL (31.6-35.5); Mean Corpuscular Hemoglobin 28.3 pg (28.0-33.3); Mean Corpuscular Volume 93.6 fL (83.0-100.0); Mean Platelet Volume 11.7 fL (9.4-12.4); Platelet Count 690 K/mcL (140-400); Red Blood Count 3.29 M/mcL (3.82-4.97); Red Cell Distribution Width 16.4 % (11.5-14.5); White Blood Count 21.6 K/mcL (4.3-11.1)
[2021-07-16 04:03] LABS: VBG Ionized Calcium 1.15 mmol/L (1.15-1.35)
[2021-07-16 04:21] LABS: Calcium 8.5 mg/dL (8.6-10.3); Magnesium 2.7 mg/dL (1.6-2.6); Phosphorous 2.8 mg/dL (2.7-4.5); Potassium 4.2 mEq/L (3.5-5.1)
[2021-07-16] MEDS: Ringers Solution, Lactated 1,000 ML IVC SCH (05:11)
[2021-07-16] MEDS: *HR* Heparin 5,000 UNIT/ML VIAL SQ SCH ×3 (05:11→22:32)
[2021-07-16] MEDS: Lithium Carbonate 300 MG CAPSULE PO SCH ×2 (07:46→16:18)
[2021-07-16] MEDS: Pantoprazole 40 MG VIAL IVP SCH (07:47)
[2021-07-16] MEDS: Fluconazole 400 MG/200 ML 400 MG/200 ML BAG IVPB SCH (07:48)
[2021-07-16] MEDS: FentaNYL (PF) 1,000 MCG/100 ML IV.SOLN IVC SCH (07:49)
[2021-07-16] MEDS ORDERED: AMINO ACIDS IV SCH (09:30)
[2021-07-16] MEDS ORDERED: [UNRECOGNIZED DRUG - OTHER] IV SCH (09:30)
[2021-07-16] MEDS ORDERED: MVI IV SCH (09:30)
[2021-07-16] MEDS ORDERED: DEXTROSE 15% IV SCH (09:30)
[2021-07-16] MEDS: D5% in Water 1,000 ML IVC SCH (09:40)
[2021-07-16] MEDS ORDERED: Clinimix 5%-20% SOLUTION 2,000 ML with MVI, adult with vitamin K 10 ML, Sodium Phosph... IV SCH (17:00)
[2021-07-16] MEDS: methocarbamoL 500 MG TABLET GTUBE SCH (20:03)
[2021-07-16] MEDS: Mirtazapine 15 MG TABLET GTUBE SCH (20:03)
[2021-07-17] MEDS: Lithium Carbonate 300 MG CAPSULE PO SCH ×3 (00:08→15:59)
[2021-07-17] MEDS: Insulin LISPRO 300 UNITS/3 ML VIAL SUBQ SCH ×6 (00:08→20:22)
[2021-07-17] MEDS: Metoclopramide 10 MG/2 ML VIAL IVP SCH ×4 (00:08→16:51)
[2021-07-17] MEDS: Piperacillin/Tazobactam 3.375 GM in D5% in Water 100 ML IVPB SCH ×3 (01:29→16:43)
[2021-07-17 04:21] LABS: Hematocrit 30.2 % (35.3-44.9); Hemoglobin 9.2 g/dL (11.5-15.4); Mean Corpuscular HGB Conc 30.5 g/dL (31.6-35.5); Mean Corpuscular Hemoglobin 28.7 pg (28.0-33.3); Mean Corpuscular Volume 94.1 fL (83.0-100.0); Mean Platelet Volume 11.7 fL (9.4-12.4); Platelet Count 595 K/mcL (140-400); Red Blood Count 3.21 M/mcL (3.82-4.97); Red Cell Distribution Width 17.2 % (11.5-14.5); White Blood Count 18.7 K/mcL (4.3-11.1)
[2021-07-17 04:35] LABS: Calcium 8.4 mg/dL (8.6-10.3); Magnesium 2.5 mg/dL (1.6-2.6); Phosphorous 1.8 mg/dL (2.7-4.5); Potassium 4.1 mEq/L (3.5-5.1)
[2021-07-17] MEDS: *HR* Heparin 5,000 UNIT/ML VIAL SQ SCH ×3 (05:30→20:19)
[2021-07-17] MEDS: D5% in Water 1,000 ML IVC SCH (05:31)
[2021-07-17] MEDS: *HR* HYDROmorphone (PF) 1 MG/ML SYRINGE IVP PRN ×3 (05:31→19:26)
[2021-07-17] MEDS: Fluconazole 400 MG/200 ML 400 MG/200 ML BAG IVPB SCH (08:17)
[2021-07-17] MEDS: Pantoprazole 40 MG VIAL IVP SCH (08:18)
[2021-07-17] MEDS ORDERED: Fat Emulsions 20% 250 ML IVPB SCH (17:00)
[2021-07-17] MEDS ORDERED: Clinimix E 5%-15% SOLUTION 2,000 ML with MVI, adult with vitamin K 10 ML IV SCH (17:00)
[2021-07-17] MEDS: Mirtazapine 15 MG TABLET GTUBE SCH (20:18)
[2021-07-17] MEDS: methocarbamoL 500 MG TABLET GTUBE SCH (20:19)
[2021-07-18] MEDS: Lithium Carbonate 300 MG CAPSULE PO SCH ×3 (00:09→16:06)
[2021-07-18] MEDS: Insulin LISPRO 300 UNITS/3 ML VIAL SUBQ SCH ×6 (00:09→20:21)
[2021-07-18] MEDS: Metoclopramide 10 MG/2 ML VIAL IVP SCH ×2 (00:09→05:39)
[2021-07-18] MEDS: Piperacillin/Tazobactam 3.375 GM in D5% in Water 100 ML IVPB SCH ×3 (01:55→17:44)
[2021-07-18] MEDS: D5% in Water 1,000 ML IVC SCH ×2 (01:55→23:01)
[2021-07-18] MEDS: *HR* Heparin 5,000 UNIT/ML VIAL SQ SCH ×3 (05:39→23:01)
[2021-07-18 06:53] LABS: Basophils # 0.1 K/mcL (0.0-0.2); Basophils % 0.6 %; Eosinophils # 0.4 K/mcL (0.0-0.6); Eosinophils % 1.8 %; Hematocrit 34.6 % (35.3-44.9); Hemoglobin 10.4 g/dL (11.5-15.4); Immature Granulocytes % 4.9 % (0-4); Lymphocytes % 8.9 %; Mean Corpuscular HGB Conc 30.1 g/dL (31.6-35.5); Mean Corpuscular Hemoglobin 28.6 pg (28.0-33.3); Mean Corpuscular Volume 95.1 fL (83.0-100.0); Mean Platelet Volume 11.7 fL (9.4-12.4); Monocytes # 1.6 K/mcL (0.0-1.3); Monocytes % 7.3 %; Neutrophils # 16.8 K/mcL (1.6-8.9); Nucleated Red Blood Cells 0.5 /100 WBC (0); Platelet Count 579 K/mcL (140-400); Red Blood Count 3.64 M/mcL (3.82-4.97); Red Cell Distribution Width 16.7 % (11.5-14.5); Segmented Neutrophils % 76.5 %
[2021-07-18 07:05] LABS: Potassium 4.2 mEq/L (3.5-5.1)
[2021-07-18] MEDS: Pantoprazole 40 MG VIAL IVP SCH (08:09)
[2021-07-18] MEDS: Fluconazole 400 MG/200 ML 400 MG/200 ML BAG IVPB SCH (08:11)
[2021-07-18] MEDS: amLODIPine 5 MG TABLET GTUBE SCH (14:43)
[2021-07-18] MEDS ORDERED: Clinimix E 5%-15% SOLUTION 2,000 ML with MVI, adult with vitamin K 10 ML IV SCH (17:00)
[2021-07-18] MEDS: methocarbamoL 500 MG TABLET GTUBE SCH (20:20)
[2021-07-18] MEDS: Mirtazapine 15 MG TABLET GTUBE SCH (20:20)
[2021-07-18] MEDS: *HR* HYDROmorphone (PF) 1 MG/ML SYRINGE IVP PRN (20:22)
[2021-07-19] MEDS: Lithium Carbonate 300 MG CAPSULE PO SCH ×4 (00:09→23:07)
[2021-07-19] MEDS: Insulin LISPRO 300 UNITS/3 ML VIAL SUBQ SCH ×7 (00:10→23:16)
[2021-07-19] MEDS: Piperacillin/Tazobactam 3.375 GM in D5% in Water 100 ML IVPB SCH ×3 (02:05→18:52)
[2021-07-19 04:37] LABS: Hematocrit 31.4 % (35.3-44.9); Hemoglobin 9.4 g/dL (11.5-15.4); Mean Corpuscular HGB Conc 29.9 g/dL (31.6-35.5); Mean Corpuscular Hemoglobin 28.2 pg (28.0-33.3); Mean Corpuscular Volume 94.3 fL (83.0-100.0); Mean Platelet Volume 12.1 fL (9.4-12.4); Platelet Count 497 K/mcL (140-400); Red Blood Count 3.33 M/mcL (3.82-4.97); Red Cell Distribution Width 16.9 % (11.5-14.5); White Blood Count 23.6 K/mcL (4.3-11.1)
[2021-07-19 04:52] LABS: Albumin 2.6 g/dL (3.5-5.7); Albumin/Globulin Ratio 0.7 (1.1-2.2); Bilirubin,Direct 0.1 mg/dL (0.0-0.2); Bilirubin,Indirect 0.3 mg/dL (0.0-1.0); Bilirubin,Total 0.4 mg/dL (0.3-1.0); Calcium 8.7 mg/dL (8.6-10.3); Magnesium 2.2 mg/dL (1.6-2.6); Phosphorous 2.9 mg/dL (2.7-4.5); Potassium 4.1 mEq/L (3.5-5.1); Total Protein 6.6 g/dL (6.4-8.9)
[2021-07-19] MEDS: *HR* Heparin 5,000 UNIT/ML VIAL SQ SCH ×3 (08:38→20:24)
[2021-07-19] MEDS: Pantoprazole 40 MG VIAL IVP SCH (08:45)
[2021-07-19] MEDS: amLODIPine 5 MG TABLET GTUBE SCH (08:46)
[2021-07-19] MEDS: Fluconazole 400 MG/200 ML 400 MG/200 ML BAG IVPB SCH (08:47)
[2021-07-19] MEDS: *HR* HYDROmorphone (PF) 1 MG/ML SYRINGE IVP PRN (15:02)
[2021-07-19] MEDS: D5% in Water 1,000 ML IVC SCH (18:53)
[2021-07-19] MEDS: Mirtazapine 15 MG TABLET GTUBE SCH (20:24)
[2021-07-19] MEDS: methocarbamoL 500 MG TABLET GTUBE SCH (20:24)
[2021-07-20] MEDS: Piperacillin/Tazobactam 3.375 GM in D5% in Water 100 ML IVPB SCH ×3 (01:19→18:13)
[2021-07-20 04:17] LABS: Hematocrit 30.2 % (35.3-44.9); Mean Corpuscular HGB Conc 29.8 g/dL (31.6-35.5); Mean Corpuscular Hemoglobin 28.6 pg (28.0-33.3); Mean Corpuscular Volume 95.9 fL (83.0-100.0); Mean Platelet Volume 12.4 fL (9.4-12.4); Platelet Count 368 K/mcL (140-400); Red Blood Count 3.15 M/mcL (3.82-4.97); Red Cell Distribution Width 17.2 % (11.5-14.5); White Blood Count 22.7 K/mcL (4.3-11.1)
[2021-07-20] MEDS: Insulin LISPRO 300 UNITS/3 ML VIAL SUBQ SCH ×6 (04:23→23:30)
[2021-07-20 05:43] LABS: Calcium 8.5 mg/dL (8.6-10.3); Magnesium 2.2 mg/dL (1.6-2.6); Phosphorous 3.2 mg/dL (2.7-4.5); Potassium 5.3 mEq/L (3.5-5.1)
[2021-07-20] MEDS: *HR* Heparin 5,000 UNIT/ML VIAL SQ SCH ×3 (05:57→21:27)
[2021-07-20] MEDS: Fluconazole 400 MG/200 ML 400 MG/200 ML BAG IVPB SCH (09:34)
[2021-07-20] MEDS: Pantoprazole 40 MG VIAL IVP SCH (09:35)
[2021-07-20] MEDS: amLODIPine 5 MG TABLET GTUBE SCH (09:35)
[2021-07-20] MEDS: Lithium Carbonate 300 MG CAPSULE PO SCH ×3 (09:38→23:24)
[2021-07-20] MEDS ORDERED: Preparation H Ointment 57 GM TUBE TP PRN (16:08)
[2021-07-20] MEDS: D5% in Water 1,000 ML IVC SCH (18:13)
[2021-07-20] MEDS: methocarbamoL 500 MG TABLET GTUBE SCH (21:22)
[2021-07-20] MEDS: Mirtazapine 15 MG TABLET GTUBE SCH (21:22)
[2021-07-21] MEDS: Piperacillin/Tazobactam 3.375 GM in D5% in Water 100 ML IVPB SCH ×3 (02:00→19:29)
[2021-07-21 02:53] LABS: Hemoglobin 10.1 g/dL (11.5-15.4)
[2021-07-21 02:55] LABS: Hematocrit 33.4 % (35.3-44.9); Mean Corpuscular HGB Conc 30.2 g/dL (31.6-35.5); Mean Corpuscular Hemoglobin 28.8 pg (28.0-33.3); Mean Corpuscular Volume 95.2 fL (83.0-100.0); Mean Platelet Volume 12.1 fL (9.4-12.4); Platelet Count 361 K/mcL (140-400); Red Blood Count 3.51 M/mcL (3.82-4.97); Red Cell Distribution Width 17.1 % (11.5-14.5)
[2021-07-21 03:33] LABS: Calcium 8.5 mg/dL (8.6-10.3); Magnesium 2.3 mg/dL (1.6-2.6); Phosphorous 3.6 mg/dL (2.7-4.5); Potassium 5.1 mEq/L (3.5-5.1)
[2021-07-21] MEDS: Insulin LISPRO 300 UNITS/3 ML VIAL SUBQ SCH ×6 (03:51→23:35)
[2021-07-21] MEDS: *HR* Heparin 5,000 UNIT/ML VIAL SQ SCH ×3 (05:57→20:09)
[2021-07-21] MEDS: Fluconazole 400 MG/200 ML 400 MG/200 ML BAG IVPB SCH (09:35)
[2021-07-21] MEDS: Pantoprazole 40 MG VIAL IVP SCH (09:36)
[2021-07-21] MEDS: Lithium Carbonate 300 MG CAPSULE PO SCH ×3 (09:37→23:30)
[2021-07-21] MEDS: amLODIPine 5 MG TABLET GTUBE SCH (09:37)
[2021-07-21] MEDS ORDERED: Iopamidol - 370 500 ML MLS PO ONE (10:48)
[2021-07-21] MEDS ORDERED: *HR* OxyCODONE Oral Soln 5 MG/5 ML UD.LIQ GTUBE PRN (12:19)
[2021-07-21] MEDS: D5% in Water 1,000 ML IVC SCH (14:33)
[2021-07-21] MEDS: Mirtazapine 15 MG TABLET GTUBE SCH (20:08)
[2021-07-21] MEDS: methocarbamoL 500 MG TABLET GTUBE SCH (20:08)
[2021-07-22] MEDS: Piperacillin/Tazobactam 3.375 GM in D5% in Water 100 ML IVPB SCH ×3 (01:36→16:55)
[2021-07-22] MEDS: Insulin LISPRO 300 UNITS/3 ML VIAL SUBQ SCH ×6 (03:36→23:33)
[2021-07-22 04:00] LABS: Calcium 8.5 mg/dL (8.6-10.3); Magnesium 2.4 mg/dL (1.6-2.6); Phosphorous 3.6 mg/dL (2.7-4.5); Potassium 4.5 mEq/L (3.5-5.1)
[2021-07-22 04:10] LABS: Hematocrit 33.4 % (35.3-44.9); Hemoglobin 10.1 g/dL (11.5-15.4); Mean Corpuscular HGB Conc 30.2 g/dL (31.6-35.5); Mean Corpuscular Hemoglobin 28.9 pg (28.0-33.3); Mean Corpuscular Volume 95.7 fL (83.0-100.0); Mean Platelet Volume 12.2 fL (9.4-12.4); Platelet Count 318 K/mcL (140-400); Red Blood Count 3.49 M/mcL (3.82-4.97); Red Cell Distribution Width 16.4 % (11.5-14.5); White Blood Count 24.2 K/mcL (4.3-11.1)
[2021-07-22] MEDS: *HR* Heparin 5,000 UNIT/ML VIAL SQ SCH ×3 (05:44→20:45)
[2021-07-22] MEDS: amLODIPine 5 MG TABLET GTUBE SCH (07:33)
[2021-07-22] MEDS: Fluconazole 400 MG/200 ML 400 MG/200 ML BAG IVPB SCH (07:33)
[2021-07-22] MEDS: Pantoprazole 40 MG VIAL IVP SCH (07:33)
[2021-07-22] MEDS: Lithium Carbonate 300 MG CAPSULE PO SCH ×3 (07:33→23:33)
[2021-07-22] MEDS: *HR* HYDROmorphone 2 MG/ML SYRINGE IVP PRN (09:15)
[2021-07-22] MEDS: D5% in Water 500 ML IVC SCH ×2 (11:22→23:34)
[2021-07-22] MEDS: Mirtazapine 15 MG TABLET GTUBE SCH (20:45)
[2021-07-22] MEDS: methocarbamoL 500 MG TABLET GTUBE SCH (20:45)
[2021-07-23] MEDS: Piperacillin/Tazobactam 3.375 GM in D5% in Water 100 ML IVPB SCH ×3 (01:23→16:45)
[2021-07-23] MEDS: Insulin LISPRO 300 UNITS/3 ML VIAL SUBQ SCH ×6 (04:29→23:57)
[2021-07-23] MEDS: *HR* Heparin 5,000 UNIT/ML VIAL SQ SCH ×3 (04:29→20:14)
[2021-07-23 05:45] LABS: Hemoglobin 9.8 g/dL (11.5-15.4)
[2021-07-23 05:47] LABS: Hematocrit 32.5 % (35.3-44.9); Immature Platelets 12.1 % (1.1-6.1); Mean Corpuscular HGB Conc 30.2 g/dL (31.6-35.5); Mean Corpuscular Hemoglobin 28.7 pg (28.0-33.3); Red Blood Count 3.42 M/mcL (3.82-4.97); Red Cell Distribution Width 16.3 % (11.5-14.5); White Blood Count 22.3 K/mcL (4.3-11.1)
[2021-07-23 06:06] LABS: Calcium 8.1 mg/dL (8.6-10.3); Magnesium 2.4 mg/dL (1.6-2.6); Phosphorous 3.2 mg/dL (2.7-4.5); Potassium 4.4 mEq/L (3.5-5.1)
[2021-07-23] MEDS: Fluconazole 400 MG/200 ML 400 MG/200 ML BAG IVPB SCH (08:06)
[2021-07-23] MEDS: Pantoprazole 40 MG VIAL IVP SCH (08:07)
[2021-07-23] MEDS: Lithium Carbonate 300 MG CAPSULE PO SCH ×3 (08:08→23:55)
[2021-07-23] MEDS: amLODIPine 5 MG TABLET GTUBE SCH (08:08)
[2021-07-23] MEDS: Mirtazapine 15 MG TABLET GTUBE SCH (19:55)
[2021-07-23] MEDS: methocarbamoL 500 MG TABLET GTUBE SCH (19:55)
[2021-07-23] MEDS: *HR* HYDROmorphone 2 MG/ML SYRINGE IVP PRN ×2 (19:55→23:55)
[2021-07-24 04:25] LABS: Hemoglobin 10.7 g/dL (11.5-15.4)
[2021-07-24 04:26] LABS: Calcium 8.9 mg/dL (8.6-10.3); Magnesium 2.3 mg/dL (1.6-2.6); Phosphorous 3.3 mg/dL (2.7-4.5); Potassium 5.2 mEq/L (3.5-5.1)
[2021-07-24 04:27] LABS: Hematocrit 35.4 % (35.3-44.9); Immature Platelets 14.9 % (1.1-6.1); Mean Corpuscular HGB Conc 30.2 g/dL (31.6-35.5); Mean Corpuscular Hemoglobin 28.6 pg (28.0-33.3); Mean Corpuscular Volume 94.7 fL (83.0-100.0); Mean Platelet Volume 13.4 fL (9.4-12.4); Red Blood Count 3.74 M/mcL (3.82-4.97)
[2021-07-24 04:31] LABS: White Blood Count 40.5 K/mcL (4.3-11.1)
[2021-07-24] MEDS: Piperacillin/Tazobactam 3.375 GM in D5% in Water 100 ML IVPB SCH ×3 (04:38→19:42)
[2021-07-24] MEDS: Insulin LISPRO 300 UNITS/3 ML VIAL SUBQ SCH ×6 (04:48→23:19)
[2021-07-24] MEDS: *HR* Heparin 5,000 UNIT/ML VIAL SQ SCH ×3 (05:47→21:38)
[2021-07-24 07:46] LABS: Hematocrit 39.3 % (35.3-44.9); Mean Corpuscular HGB Conc 30.5 g/dL (31.6-35.5); Mean Corpuscular Hemoglobin 28.6 pg (28.0-33.3); Mean Corpuscular Volume 93.8 fL (83.0-100.0); Mean Platelet Volume 12.7 fL (9.4-12.4); Platelet Count 322 K/mcL (140-400); Red Blood Count 4.19 M/mcL (3.82-4.97); Red Cell Distribution Width 16.1 % (11.5-14.5)
[2021-07-24 07:52] LABS: White Blood Count 37.1 K/mcL (4.3-11.1)
[2021-07-24 08:00] LABS: Calcium 9.4 mg/dL (8.6-10.3); Potassium 5.3 mEq/L (3.5-5.1)
[2021-07-24 08:22] LABS: Lymphocytes # 1.5 K/mcL (0.6-4.6); Monocytes # 0.7 K/mcL (0.0-1.3); Neutrophils # 34.9 K/mcL (1.6-8.9)
[2021-07-24 08:23] LABS: Platelet Estimate Normal (Normal)
[2021-07-24] MEDS: Lithium Carbonate 300 MG CAPSULE PO SCH ×3 (09:07→23:14)
[2021-07-24] MEDS: amLODIPine 5 MG TABLET GTUBE SCH (09:08)
[2021-07-24] MEDS: Pantoprazole 40 MG VIAL IVP SCH (09:08)
[2021-07-24] MEDS: Fluconazole 400 MG/200 ML 400 MG/200 ML BAG IVPB SCH (09:09)
[2021-07-24] MEDS: *HR* HYDROmorphone 2 MG/ML SYRINGE IVP PRN (09:12)
[2021-07-24] MEDS ORDERED: *HR* Midazolam HCl 2 MG/2 ML VIAL IVP ONE ×2 (11:50→11:58)
[2021-07-24] MEDS ORDERED: *HR* FentaNYL (PF) 100 MCG/2 ML VIAL IVP ONE (11:58)
[2021-07-24] MEDS ORDERED: *HR* FentaNYL (PF) 100 MCG/2 ML VIAL ONE (12:13)
[2021-07-24] MEDS: Mirtazapine 15 MG TABLET GTUBE SCH (19:43)
[2021-07-24] MEDS: methocarbamoL 500 MG TABLET GTUBE SCH (19:43)
[2021-07-25] MEDS: Piperacillin/Tazobactam 3.375 GM in D5% in Water 100 ML IVPB SCH ×3 (01:12→20:33)
[2021-07-25] MEDS: Insulin LISPRO 300 UNITS/3 ML VIAL SUBQ SCH ×5 (03:46→20:33)
[2021-07-25] MEDS: *HR* Heparin 5,000 UNIT/ML VIAL SQ SCH ×4 (05:09→21:58)
[2021-07-25] MEDS: Lithium Carbonate 300 MG CAPSULE PO SCH ×2 (08:49→16:58)
[2021-07-25] MEDS: amLODIPine 5 MG TABLET GTUBE SCH (08:49)
[2021-07-25] MEDS ORDERED: Ringers Solution, Lactated 500 ML IVC ONE ×2 (09:07→21:52)
[2021-07-25] MEDS ORDERED: Lidocaine -MPF 1% 5 ML AMPUL INFILT ONE ×2 (09:12→21:52)
[2021-07-25] MEDS: Fluconazole 400 MG/200 ML 400 MG/200 ML BAG IVPB SCH (12:38)
[2021-07-25] MEDS: Pantoprazole 40 MG VIAL IVP SCH (12:39)
[2021-07-25 12:46] LABS: Hemoglobin 10.7 g/dL (11.5-15.4); Mean Corpuscular HGB Conc 30.7 g/dL (31.6-35.5)
[2021-07-25 12:48] LABS: Hematocrit 34.8 % (35.3-44.9); Immature Platelets 15.6 % (1.1-6.1); Mean Corpuscular Hemoglobin 28.6 pg (28.0-33.3); Mean Platelet Volume 13.3 fL (9.4-12.4); Red Blood Count 3.74 M/mcL (3.82-4.97); Red Cell Distribution Width 16.2 % (11.5-14.5); White Blood Count 23.8 K/mcL (4.3-11.1)
[2021-07-25 13:16] LABS: Calcium 9.3 mg/dL (8.6-10.3); Magnesium 2.8 mg/dL (1.6-2.6); Phosphorous 3.7 mg/dL (2.7-4.5); Potassium 5.4 mEq/L (3.5-5.1)
[2021-07-25] MEDS: methocarbamoL 500 MG TABLET GTUBE SCH (20:34)
[2021-07-25] MEDS: Mirtazapine 15 MG TABLET GTUBE SCH (20:34)
[2021-07-25] MEDS ORDERED: *HR* HYDROmorphone (PF) 1 MG/ML SYRINGE IVP PRN (21:52)
[2021-07-25] MEDS ORDERED: *HR* OxyCODONE Oral Soln 5 MG/5 ML UD.LIQ GTUBE PRN (21:52)
[2021-07-26] MEDS: Insulin LISPRO 300 UNITS/3 ML VIAL SUBQ SCH ×7 (01:00→23:57)
[2021-07-26] MEDS: Lithium Carbonate 300 MG CAPSULE PO SCH ×4 (01:18→23:52)
[2021-07-26] MEDS: Piperacillin/Tazobactam 3.375 GM in D5% in Water 100 ML IVPB SCH ×2 (01:23→10:57)
[2021-07-26] MEDS: *HR* Heparin 5,000 UNIT/ML VIAL SQ SCH ×3 (06:11→20:34)
[2021-07-26 07:35] LABS: Hematocrit 38.3 % (35.3-44.9); Hemoglobin 12.1 g/dL (11.5-15.4); Immature Platelets 14.2 % (1.1-6.1); Mean Corpuscular HGB Conc 31.6 g/dL (31.6-35.5); Mean Corpuscular Hemoglobin 29.5 pg (28.0-33.3); Mean Corpuscular Volume 93.4 fL (83.0-100.0); Mean Platelet Volume 13.4 fL (9.4-12.4); Red Blood Count 4.1 M/mcL (3.82-4.97); Red Cell Distribution Width 16.5 % (11.5-14.5); White Blood Count 21.9 K/mcL (4.3-11.1)
[2021-07-26 07:43] LABS: Albumin 3.5 g/dL (3.5-5.7); Albumin/Globulin Ratio 0.8 (1.1-2.2); Bilirubin,Direct 0.1 mg/dL (0.0-0.2); Bilirubin,Indirect 0.3 mg/dL (0.0-1.0); Bilirubin,Total 0.4 mg/dL (0.3-1.0); Calcium 9.4 mg/dL (8.6-10.3); Globulin 4.3 g/dL (2.4-3.5); Magnesium 2.8 mg/dL (1.6-2.6); Potassium 5.9 mEq/L (3.5-5.1); Total Protein 7.8 g/dL (6.4-8.9)
[2021-07-26] MEDS: Fluconazole 400 MG/200 ML 400 MG/200 ML BAG IVPB SCH (08:58)
[2021-07-26] MEDS: amLODIPine 5 MG TABLET GTUBE SCH (08:58)
[2021-07-26] MEDS: Pantoprazole 40 MG VIAL IVP SCH (08:59)
[2021-07-26] MEDS: Ondansetron 4 MG/2 ML VIAL IVP PRN (09:13)
[2021-07-26] MEDS ORDERED: Iopamidol - 370 500 ML MLS PO ONE (15:52)
[2021-07-26] MEDS: Piperacillin/Tazobactam 3.375 GM in D5% in Water (Mini-Bag+) 100 ML IVPB SCH ×2 (16:33→23:52)
[2021-07-26] MEDS: Mirtazapine 15 MG TABLET GTUBE SCH (20:34)
[2021-07-26] MEDS: methocarbamoL 500 MG TABLET GTUBE SCH (20:34)
[2021-07-26] MEDS ORDERED: *HR* LORazepam 2 MG/ML VIAL IVP ONE (22:15)
[2021-07-27 02:48] LABS: Mean Platelet Volume 13.2 fL (9.4-12.4)
[2021-07-27 02:50] LABS: Hematocrit 37.1 % (35.3-44.9); Hemoglobin 11.5 g/dL (11.5-15.4); Immature Platelets 14.1 % (1.1-6.1); Mean Corpuscular Hemoglobin 29.6 pg (28.0-33.3); Mean Corpuscular Volume 95.6 fL (83.0-100.0); Red Blood Count 3.88 M/mcL (3.82-4.97); Red Cell Distribution Width 16.8 % (11.5-14.5); White Blood Count 28.1 K/mcL (4.3-11.1)
[2021-07-27 03:08] LABS: Calcium 9.4 mg/dL (8.6-10.3); Magnesium 2.7 mg/dL (1.6-2.6); Potassium 6.1 mEq/L (3.5-5.1)
[2021-07-27] MEDS: Insulin LISPRO 300 UNITS/3 ML VIAL SUBQ SCH ×5 (04:10→20:53)
[2021-07-27] MEDS ORDERED: Calcium Gluconate 1gm/50mL 1 GM/50 ML BAG IVPB ONE (05:51)
[2021-07-27] MEDS ORDERED: SODIUM ZIRCONIUM CYCLOSILICATE 5 GM POWD.PACK PO ONE (05:52)
[2021-07-27] MEDS ORDERED: 0.9 % Sodium Chloride 250 ML IVC ONE (05:53)
[2021-07-27] MEDS: *HR* Heparin 5,000 UNIT/ML VIAL SQ SCH ×3 (07:08→20:58)
[2021-07-27] MEDS: Piperacillin/Tazobactam 3.375 GM in D5% in Water (Mini-Bag+) 100 ML IVPB SCH ×2 (10:32→16:02)
[2021-07-27] MEDS: Fluconazole 400 MG/200 ML 400 MG/200 ML BAG IVPB SCH (10:33)
[2021-07-27] MEDS: amLODIPine 5 MG TABLET GTUBE SCH (10:34)
[2021-07-27] MEDS: Pantoprazole 40 MG VIAL IVP SCH (10:34)
[2021-07-27] MEDS ORDERED: Perflutren Lipid Microsphere 1.3 ML in 0.9 % Sodium Chloride 8.7 ML IVP PRN (11:01)
[2021-07-27] MEDS: Lithium Carbonate 300 MG CAPSULE PO SCH (12:07)
[2021-07-27 12:22] LABS: Calcium 9.4 mg/dL (8.6-10.3); Potassium 5.3 mEq/L (3.5-5.1)
[2021-07-27 12:39] LABS: Thyroid Stimulating Hormone 5.761 mcIU/mL (0.340-5.600)
[2021-07-27 12:41] LABS: Triiodothyronine (T3) Free 3.12 pg/mL (2.50-3.90)
[2021-07-27] MEDS ORDERED: D5 IVPB SCH (13:00)
[2021-07-27] MEDS ORDERED: WATER IVPB SCH (13:00)
[2021-07-27] MEDS ORDERED: DOXYCYCLINE IVPB SCH (13:00)
[2021-07-27] MEDS: Albumin 25% 25gram/100mL 25 GM/100 ML IV.SOLN IVC SCH ×4 (16:01→23:01)
[2021-07-27 18:54] LABS: Calcium 9.3 mg/dL (8.6-10.3); Magnesium 2.8 mg/dL (1.6-2.6); Potassium 6.1 mEq/L (3.5-5.1)
[2021-07-27] MEDS: methocarbamoL 500 MG TABLET GTUBE SCH (20:58)
[2021-07-27] MEDS: Mirtazapine 15 MG TABLET GTUBE SCH (20:58)
[2021-07-28 01:00] LABS: Adenovirus Not Detected (Not Detect); Bordetella Pertussis Not Detected (Not Detect); Chlamydophila pneumoniae Not Detected (Not Detect); Coronavirus 229E Not Detected (Not Detect); Coronavirus HKU1 Not Detected (Not Detect); Coronavirus NL63 Not Detected (Not Detect); Coronavirus OC43 Not Detected (Not Detect); Human Metapneumovirus Not Detected (Not Detect); Human Rhinovirus/Enterovirus Not Detected (Not Detect); Influenza A Subtype 2009 H1 Not Detected (Not Detect); Influenza B Not Detected (Not Detect); Mycoplasma pneumoniae Not Detected (Not Detect); Parainfluenza Virus 1 Not Detected (Not Detect); Parainfluenza Virus 2 Not Detected (Not Detect); Parainfluenza Virus 3 Not Detected (Not Detect); Parainfluenza Virus 4 Not Detected (Not Detect); Respiratory Syncytial Virus Not Detected (Not Detect); SARS-CoV-2 Not Detected (Not Detect)
[2021-07-28] MEDS: Insulin LISPRO 300 UNITS/3 ML VIAL SUBQ SCH ×7 (01:30→23:49)
[2021-07-28 03:53] LABS: Bilirubin,Urine Negative (Negative); Blood,Urine Negative (Negative); Clarity,Urine Clear (Clear); Color,Urine Light-Yellow (Yellow); Glucose,Urine (UA) Normal (Normal); Ketones,Urine Negative (Negative); Leukocyte Esterase,Urine Negative (Negative); Mucus,Urine Few per lpf (None-Few); Nitrite,Urine Negative (Negative); Protein,Urine 30 mg/dL (Neg-Trace); RBC,Urine 0-3 per hpf (0-3); Specific Gravity,Urine 1.015 (1.010-1.025); Squamous Epithelial Cell,Urine Few per hpf (None-Few); Urobilinogen,Urine Normal (Normal); WBC,Urine 0-3 per hpf (0-3)
[2021-07-28 03:53] LABS: Potassium,Urine 32.9 mEq/L
[2021-07-28 06:00] LABS: White Blood Count 16.5 K/mcL (4.3-11.1)
[2021-07-28 06:02] LABS: Hematocrit 35.9 % (35.3-44.9); Hemoglobin 10.6 g/dL (11.5-15.4); Mean Corpuscular HGB Conc 29.5 g/dL (31.6-35.5); Mean Corpuscular Hemoglobin 28.6 pg (28.0-33.3); Mean Platelet Volume 13.4 fL (9.4-12.4); Red Blood Count 3.7 M/mcL (3.82-4.97); Red Cell Distribution Width 16.5 % (11.5-14.5)
[2021-07-28 06:23] LABS: Calcium 10.7 mg/dL (8.6-10.3); Magnesium 2.7 mg/dL (1.6-2.6); Potassium 4.7 mEq/L (3.5-5.1)
[2021-07-28] MEDS: *HR* Heparin 5,000 UNIT/ML VIAL SQ SCH ×3 (06:35→20:41)
[2021-07-28] MEDS: Piperacillin/Tazobactam 3.375 GM in D5% in Water (Mini-Bag+) 100 ML IVPB SCH ×4 (09:05→23:50)
[2021-07-28] MEDS: Ringers Solution, Lactated 1,000 ML IVC SCH ×2 (09:07→18:13)
[2021-07-28] MEDS: Fluconazole 400 MG/200 ML 400 MG/200 ML BAG IVPB SCH (09:08)
[2021-07-28] MEDS: amLODIPine 5 MG TABLET GTUBE SCH (09:09)
[2021-07-28] MEDS: Pantoprazole 40 MG VIAL IVP SCH (09:09)
[2021-07-28] MEDS ORDERED: Lithium Oral Soln 300 MG/5 ML (8 mEq/5mL) UDC GTUBE SCH (16:00)
[2021-07-28] MEDS ORDERED: Clinimix E 5%-15% SOLUTION 2,000 ML with MVI, adult with vitamin K 10 ML IV SCH (17:00)
[2021-07-28] MEDS: Estradiol 0.1 MG PATCH (WEEKLY) TD SCH (18:11)
[2021-07-28] MEDS: *HR* Metoprolol 5 MG/5 ML VIAL IVP SCH ×2 (18:11→23:50)
[2021-07-28] MEDS: methocarbamoL 500 MG TABLET GTUBE SCH (20:41)
[2021-07-28] MEDS: Lithium Carbonate 300 MG CAPSULE PO SCH (20:41)
[2021-07-28] MEDS: Mirtazapine 15 MG TABLET GTUBE SCH (20:41)
[2021-07-29] MEDS: Insulin LISPRO 300 UNITS/3 ML VIAL SUBQ SCH ×6 (04:10→23:42)
[2021-07-29 05:35] LABS: Hematocrit 31.9 % (35.3-44.9); Hemoglobin 9.7 g/dL (11.5-15.4); Mean Corpuscular HGB Conc 30.4 g/dL (31.6-35.5); Mean Corpuscular Hemoglobin 28.6 pg (28.0-33.3); Mean Corpuscular Volume 94.1 fL (83.0-100.0); Platelet Count 300 K/mcL (140-400); Red Blood Count 3.39 M/mcL (3.82-4.97); Red Cell Distribution Width 15.7 % (11.5-14.5)
[2021-07-29 05:48] LABS: Calcium 9.9 mg/dL (8.6-10.3); Magnesium 2.4 mg/dL (1.6-2.6); Phosphorous 3.4 mg/dL (2.7-4.5); Potassium 4.3 mEq/L (3.5-5.1)
[2021-07-29] MEDS: Ringers Solution, Lactated 1,000 ML IVC SCH ×2 (06:15→20:07)
[2021-07-29] MEDS: *HR* Metoprolol 5 MG/5 ML VIAL IVP SCH ×4 (06:26→23:35)
[2021-07-29] MEDS: *HR* Heparin 5,000 UNIT/ML VIAL SQ SCH ×3 (06:26→20:07)
[2021-07-29] MEDS: amLODIPine 5 MG TABLET GTUBE SCH (08:46)
[2021-07-29] MEDS: Piperacillin/Tazobactam 3.375 GM in D5% in Water (Mini-Bag+) 100 ML IVPB SCH ×3 (08:47→23:35)
[2021-07-29] MEDS: Pantoprazole 40 MG VIAL IVP SCH (08:48)
[2021-07-29] MEDS: Fluconazole 400 MG/200 ML 400 MG/200 ML BAG IVPB SCH (08:48)
[2021-07-29] MEDS ORDERED: Clinimix E 5%-15% SOLUTION 2,000 ML with MVI, adult with vitamin K 10 ML IV SCH (17:00)
[2021-07-29] MEDS: Mirtazapine 15 MG TABLET GTUBE SCH (20:07)
[2021-07-29] MEDS: methocarbamoL 500 MG TABLET GTUBE SCH (20:07)
[2021-07-29] MEDS: Lithium Carbonate 300 MG CAPSULE PO SCH (20:07)
[2021-07-30] MEDS: Insulin LISPRO 300 UNITS/3 ML VIAL SUBQ SCH ×5 (06:33→20:40)
[2021-07-30] MEDS: *HR* Heparin 5,000 UNIT/ML VIAL SQ SCH ×3 (06:33→20:39)
[2021-07-30] MEDS: *HR* Metoprolol 5 MG/5 ML VIAL IVP SCH ×2 (07:23→17:25)
[2021-07-30] MEDS: Piperacillin/Tazobactam 3.375 GM in D5% in Water (Mini-Bag+) 100 ML IVPB SCH ×2 (07:25→17:26)
[2021-07-30] MEDS: amLODIPine 5 MG TABLET GTUBE SCH (07:54)
[2021-07-30] MEDS: Fluconazole 400 MG/200 ML 400 MG/200 ML BAG IVPB SCH (07:54)
[2021-07-30] MEDS: Pantoprazole 40 MG VIAL IVP SCH (07:54)
[2021-07-30 09:05] LABS: Hematocrit 31.5 % (35.3-44.9); Hemoglobin 9.7 g/dL (11.5-15.4); Mean Corpuscular HGB Conc 30.8 g/dL (31.6-35.5); Mean Corpuscular Hemoglobin 29.1 pg (28.0-33.3); Mean Platelet Volume 12.6 fL (9.4-12.4); Platelet Count 286 K/mcL (140-400); Red Blood Count 3.33 M/mcL (3.82-4.97); Red Cell Distribution Width 15.9 % (11.5-14.5); White Blood Count 16.6 K/mcL (4.3-11.1)
[2021-07-30 09:11] LABS: Mean Corpuscular Volume 94.6 fL (83.0-100.0)
[2021-07-30 09:28] LABS: BUN/Creatinine Ratio 37 (6-26); Blood Urea Nitrogen 42 mg/dL (6-20); Calcium 9.7 mg/dL (8.6-10.3); Carbon Dioxide 21 mEq/L (23-29); Chloride 109 mEq/L (98-107); Glucose 126 mg/dL (70-105); Magnesium 2.2 mg/dL (1.6-2.6); Osmolality,Calculated 300 (280-300); Phosphorous 3.5 mg/dL (2.7-4.5); Potassium 4.4 mEq/L (3.5-5.1); Sodium 139 mEq/L (136-145); eGFR For African Americans > 60 (> 60); eGFR For Non-African Americans 52 (> 60)
[2021-07-30] MEDS ORDERED: Clinimix E 5%-15% SOLUTION 2,000 ML with MVI, adult with vitamin K 10 ML IV SCH (17:00)
[2021-07-30] MEDS: methocarbamoL 500 MG TABLET GTUBE SCH (20:39)
[2021-07-30] MEDS: Mirtazapine 15 MG TABLET GTUBE SCH (20:39)
[2021-07-30] MEDS: Lithium Carbonate 300 MG CAPSULE PO SCH (20:40)
[2021-07-31] MEDS: Piperacillin/Tazobactam 3.375 GM in D5% in Water (Mini-Bag+) 100 ML IVPB SCH ×4 (00:07→23:50)
[2021-07-31] MEDS: *HR* Metoprolol 5 MG/5 ML VIAL IVP SCH ×5 (00:08→23:50)
[2021-07-31] MEDS: Insulin LISPRO 300 UNITS/3 ML VIAL SUBQ SCH ×7 (00:09→23:59)
[2021-07-31] MEDS: Ringers Solution, Lactated 1,000 ML IVC SCH ×2 (04:55→09:47)
[2021-07-31 05:49] LABS: Hematocrit 32.3 % (35.3-44.9); Hemoglobin 9.9 g/dL (11.5-15.4); Mean Corpuscular HGB Conc 30.7 g/dL (31.6-35.5); Mean Corpuscular Hemoglobin 28.9 pg (28.0-33.3); Mean Corpuscular Volume 94.4 fL (83.0-100.0); Mean Platelet Volume 12.5 fL (9.4-12.4); Platelet Count 297 K/mcL (140-400); Red Blood Count 3.42 M/mcL (3.82-4.97); Red Cell Distribution Width 15.7 % (11.5-14.5); White Blood Count 17.3 K/mcL (4.3-11.1)
[2021-07-31] MEDS: *HR* Heparin 5,000 UNIT/ML VIAL SQ SCH ×3 (05:57→21:06)
[2021-07-31 06:15] LABS: BUN/Creatinine Ratio 37 (6-26); Blood Urea Nitrogen 42 mg/dL (6-20); Calcium 9.9 mg/dL (8.6-10.3); Carbon Dioxide 21 mEq/L (23-29); Chloride 108 mEq/L (98-107); Glucose 96 mg/dL (70-105); Magnesium 2.3 mg/dL (1.6-2.6); Osmolality,Calculated 298 (280-300); Phosphorous 3.2 mg/dL (2.7-4.5); Potassium 4.6 mEq/L (3.5-5.1); Sodium 139 mEq/L (136-145); eGFR For African Americans > 60 (> 60); eGFR For Non-African Americans 52 (> 60)
[2021-07-31] MEDS: *HR* HYDROmorphone (PF) 1 MG/ML SYRINGE IVP PRN ×2 (09:08→23:50)
[2021-07-31] MEDS: Pantoprazole 40 MG VIAL IVP SCH (09:44)
[2021-07-31] MEDS: amLODIPine 5 MG TABLET GTUBE SCH (09:47)
[2021-07-31] MEDS: Fluconazole 400 MG/200 ML 400 MG/200 ML BAG IVPB SCH (09:48)
[2021-07-31] MEDS: Lithium Carbonate 300 MG CAPSULE PO SCH ×2 (09:48→21:06)
[2021-07-31] MEDS: Ondansetron 4 MG/2 ML VIAL IVP PRN (12:03)
[2021-07-31] MEDS ORDERED: Clinimix E 5%-15% SOLUTION 2,000 ML with MVI, adult with vitamin K 10 ML IV SCH (17:00)
[2021-07-31] MEDS: methocarbamoL 500 MG TABLET GTUBE SCH (21:06)
[2021-07-31] MEDS: Mirtazapine 15 MG TABLET GTUBE SCH (21:06)
[2021-08-01] MEDS: Insulin LISPRO 300 UNITS/3 ML VIAL SUBQ SCH ×6 (04:08→23:58)
[2021-08-01 04:45] LABS: Hematocrit 32.3 % (35.3-44.9); Hemoglobin 9.8 g/dL (11.5-15.4); Mean Corpuscular HGB Conc 30.3 g/dL (31.6-35.5); Mean Corpuscular Hemoglobin 29.3 pg (28.0-33.3); Mean Corpuscular Volume 96.4 fL (83.0-100.0); Mean Platelet Volume 12.7 fL (9.4-12.4); Platelet Count 293 K/mcL (140-400); Red Blood Count 3.35 M/mcL (3.82-4.97); Red Cell Distribution Width 15.5 % (11.5-14.5); White Blood Count 16.9 K/mcL (4.3-11.1)
[2021-08-01 05:06] LABS: BUN/Creatinine Ratio 37 (6-26); Blood Urea Nitrogen 40 mg/dL (6-20); Calcium 9.6 mg/dL (8.6-10.3); Carbon Dioxide 21 mEq/L (23-29); Chloride 108 mEq/L (98-107); Glucose 120 mg/dL (70-105); Magnesium 2.1 mg/dL (1.6-2.6); Osmolality,Calculated 299 (280-300); Phosphorous 3.4 mg/dL (2.7-4.5); Potassium 4.4 mEq/L (3.5-5.1); Sodium 139 mEq/L (136-145); eGFR For African Americans > 60 (> 60); eGFR For Non-African Americans 55 (> 60)
[2021-08-01] MEDS: *HR* Heparin 5,000 UNIT/ML VIAL SQ SCH ×3 (05:34→21:07)
[2021-08-01] MEDS: *HR* Metoprolol 5 MG/5 ML VIAL IVP SCH ×3 (05:35→16:32)
[2021-08-01] MEDS: amLODIPine 5 MG TABLET GTUBE SCH (09:32)
[2021-08-01] MEDS: Piperacillin/Tazobactam 3.375 GM in D5% in Water (Mini-Bag+) 100 ML IVPB SCH ×2 (09:32→16:30)
[2021-08-01] MEDS: Pantoprazole 40 MG VIAL IVP SCH (09:32)
[2021-08-01] MEDS: Lithium Carbonate 300 MG CAPSULE PO SCH ×2 (09:32→21:07)
[2021-08-01] MEDS: Fluconazole 400 MG/200 ML 400 MG/200 ML BAG IVPB SCH (09:33)
[2021-08-01] MEDS: Ringers Solution, Lactated 1,000 ML IVC SCH (09:40)
[2021-08-01] MEDS: Ondansetron 4 MG/2 ML VIAL IVP PRN (09:54)
[2021-08-01] MEDS ORDERED: Clinimix E 5%-15% SOLUTION 2,000 ML with MVI, adult with vitamin K 10 ML IV SCH (17:00)
[2021-08-01] MEDS: Mirtazapine 15 MG TABLET GTUBE SCH (21:07)
[2021-08-01] MEDS: methocarbamoL 500 MG TABLET GTUBE SCH (21:07)
[2021-08-02] MEDS: Piperacillin/Tazobactam 3.375 GM in D5% in Water (Mini-Bag+) 100 ML IVPB SCH ×3 (00:02→16:55)
[2021-08-02] MEDS: *HR* Metoprolol 5 MG/5 ML VIAL IVP SCH ×4 (00:03→16:56)
[2021-08-02] MEDS: Insulin LISPRO 300 UNITS/3 ML VIAL SUBQ SCH ×4 (04:53→16:14)
[2021-08-02] MEDS: *HR* Heparin 5,000 UNIT/ML VIAL SQ SCH ×3 (05:29→22:00)
[2021-08-02] MEDS: Pantoprazole 40 MG VIAL IVP SCH (10:02)
[2021-08-02] MEDS: Lithium Carbonate 300 MG CAPSULE PO SCH ×2 (10:03→22:00)
[2021-08-02] MEDS: amLODIPine 5 MG TABLET GTUBE SCH (10:03)
[2021-08-02] MEDS: Fluconazole 400 MG/200 ML 400 MG/200 ML BAG IVPB SCH (10:04)
[2021-08-02] MEDS: Ringers Solution, Lactated 1,000 ML IVC SCH (10:04)
[2021-08-02] MEDS: Ondansetron 4 MG/2 ML VIAL IVP PRN ×2 (10:36→23:22)
[2021-08-02 14:54] LABS: BUN/Creatinine Ratio 37 (6-26); Blood Urea Nitrogen 43 mg/dL (6-20); Calcium 9.9 mg/dL (8.6-10.3); Carbon Dioxide 20 mEq/L (23-29); Chloride 104 mEq/L (98-107); Glucose 127 mg/dL (70-105); Osmolality,Calculated 290 (280-300); Potassium 4.9 mEq/L (3.5-5.1); Sodium 134 mEq/L (136-145); eGFR For African Americans > 60 (> 60); eGFR For Non-African Americans 50 (> 60)
[2021-08-02] MEDS ORDERED: Clinimix E 5%-15% SOLUTION 2,000 ML with MVI, adult with vitamin K 10 ML IV SCH (17:00)
[2021-08-02] MEDS: methocarbamoL 500 MG TABLET GTUBE SCH (22:01)
[2021-08-02] MEDS: Mirtazapine 15 MG TABLET GTUBE SCH (22:01)
[2021-08-02] MEDS: *HR* HYDROmorphone (PF) 1 MG/ML SYRINGE IVP PRN (23:23)
[2021-08-03] MEDS: Insulin LISPRO 300 UNITS/3 ML VIAL SUBQ SCH ×7 (01:07→21:31)
[2021-08-03] MEDS: Piperacillin/Tazobactam 3.375 GM in D5% in Water (Mini-Bag+) 100 ML IVPB SCH ×3 (01:08→16:43)
[2021-08-03] MEDS: *HR* Metoprolol 5 MG/5 ML VIAL IVP SCH ×4 (01:10→16:43)
[2021-08-03] MEDS: *HR* Heparin 5,000 UNIT/ML VIAL SQ SCH ×3 (06:45→21:33)
[2021-08-03 06:52] LABS: Hematocrit 32.5 % (35.3-44.9); Hemoglobin 10.2 g/dL (11.5-15.4); Mean Corpuscular HGB Conc 31.4 g/dL (31.6-35.5); Mean Corpuscular Hemoglobin 29.1 pg (28.0-33.3); Mean Corpuscular Volume 92.6 fL (83.0-100.0); Mean Platelet Volume 12.1 fL (9.4-12.4); Platelet Count 288 K/mcL (140-400); Red Blood Count 3.51 M/mcL (3.82-4.97); Red Cell Distribution Width 15.3 % (11.5-14.5); White Blood Count 15.2 K/mcL (4.3-11.1)
[2021-08-03 07:11] LABS: Albumin 3.9 g/dL (3.5-5.7); Albumin/Globulin Ratio 1.1 (1.1-2.2); Bilirubin,Direct 0.1 mg/dL (0.0-0.2); Bilirubin,Indirect 0.2 mg/dL (0.0-1.0); Bilirubin,Total 0.3 mg/dL (0.3-1.0); Globulin 3.4 g/dL (2.4-3.5); Magnesium 2.3 mg/dL (1.6-2.6); Potassium 4.7 mEq/L (3.5-5.1); Total Protein 7.3 g/dL (6.4-8.9)
[2021-08-03] MEDS: Fluconazole 400 MG/200 ML 400 MG/200 ML BAG IVPB SCH (09:38)
[2021-08-03] MEDS: Pantoprazole 40 MG VIAL IVP SCH (09:38)
[2021-08-03] MEDS: amLODIPine 5 MG TABLET GTUBE SCH (09:39)
[2021-08-03] MEDS: Lithium Carbonate 300 MG CAPSULE PO SCH ×2 (09:39→21:33)
[2021-08-03] MEDS: Ringers Solution, Lactated 1,000 ML IVC SCH (09:39)
[2021-08-03] MEDS: Ondansetron 4 MG/2 ML VIAL IVP PRN (14:12)
[2021-08-03] MEDS ORDERED: Clinimix E 5%-15% SOLUTION 2,000 ML with MVI, adult with vitamin K 10 ML IV SCH (17:00)
[2021-08-03] MEDS: methocarbamoL 500 MG TABLET GTUBE SCH (21:33)
[2021-08-03] MEDS: Mirtazapine 15 MG TABLET GTUBE SCH (21:33)
[2021-08-04] MEDS: *HR* Metoprolol 5 MG/5 ML VIAL IVP SCH ×5 (00:40→21:57)
[2021-08-04] MEDS: Piperacillin/Tazobactam 3.375 GM in D5% in Water (Mini-Bag+) 100 ML IVPB SCH ×3 (00:41→16:11)
[2021-08-04] MEDS: Insulin LISPRO 300 UNITS/3 ML VIAL SUBQ SCH ×6 (00:42→21:59)
[2021-08-04] MEDS: Promethazine Syrup 6.25 MG/5 ML GTUBE PRN ×3 (00:48→21:57)
[2021-08-04] MEDS: *HR* Heparin 5,000 UNIT/ML VIAL SQ SCH ×3 (06:34→22:01)
[2021-08-04] MEDS: Pantoprazole 40 MG VIAL IVP SCH (08:07)
[2021-08-04] MEDS: Fluconazole 400 MG/200 ML 400 MG/200 ML BAG IVPB SCH (08:08)
[2021-08-04] MEDS: Ondansetron 4 MG/2 ML VIAL IVP PRN (08:23)
[2021-08-04] MEDS: Lithium Carbonate 300 MG CAPSULE PO SCH ×2 (09:00→21:59)
[2021-08-04] MEDS: amLODIPine 5 MG TABLET GTUBE SCH (09:06)
[2021-08-04 12:10] LABS: Hemoglobin 10.4 g/dL (11.5-15.4); Mean Corpuscular HGB Conc 31.5 g/dL (31.6-35.5); Mean Corpuscular Hemoglobin 29.1 pg (28.0-33.3); Mean Corpuscular Volume 92.4 fL (83.0-100.0); Mean Platelet Volume 12.6 fL (9.4-12.4); Platelet Count 309 K/mcL (140-400); Red Blood Count 3.57 M/mcL (3.82-4.97); Red Cell Distribution Width 15.1 % (11.5-14.5); White Blood Count 15.3 K/mcL (4.3-11.1)
[2021-08-04 12:24] LABS: BUN/Creatinine Ratio 37 (6-26); Blood Urea Nitrogen 42 mg/dL (6-20); Calcium 9.9 mg/dL (8.6-10.3); Carbon Dioxide 22 mEq/L (23-29); Chloride 102 mEq/L (98-107); Glucose 101 mg/dL (70-105); Magnesium 2.2 mg/dL (1.6-2.6); Osmolality,Calculated 291 (280-300); Potassium 4.5 mEq/L (3.5-5.1); Sodium 135 mEq/L (136-145); eGFR For African Americans > 60 (> 60); eGFR For Non-African Americans 51 (> 60)
[2021-08-04] MEDS: Ringers Solution, Lactated 1,000 ML IVC SCH (16:32)
[2021-08-04] MEDS ORDERED: Clinimix E 5%-15% SOLUTION 2,000 ML with MVI, adult with vitamin K 10 ML IV SCH (17:00)
[2021-08-04] MEDS: Estradiol 0.1 MG PATCH (WEEKLY) TD SCH (21:57)
[2021-08-04] MEDS: Mirtazapine 15 MG TABLET GTUBE SCH (21:58)
[2021-08-04] MEDS: methocarbamoL 500 MG TABLET GTUBE SCH (21:58)
[2021-08-05] MEDS: Ondansetron 4 MG/2 ML VIAL IVP PRN ×2 (00:41→08:30)
[2021-08-05] MEDS: Piperacillin/Tazobactam 3.375 GM in D5% in Water (Mini-Bag+) 100 ML IVPB SCH ×3 (00:41→17:07)
[2021-08-05] MEDS: Insulin LISPRO 300 UNITS/3 ML VIAL SUBQ SCH ×6 (00:43→21:11)
[2021-08-05] MEDS: *HR* Heparin 5,000 UNIT/ML VIAL SQ SCH ×3 (06:07→21:12)
[2021-08-05] MEDS: *HR* Metoprolol 5 MG/5 ML VIAL IVP SCH ×3 (06:07→18:06)
[2021-08-05] MEDS: Fluconazole 400 MG/200 ML 400 MG/200 ML BAG IVPB SCH (08:33)
[2021-08-05 08:45] LABS: Hematocrit 33.8 % (35.3-44.9); Hemoglobin 10.5 g/dL (11.5-15.4); Mean Corpuscular HGB Conc 31.1 g/dL (31.6-35.5); Mean Corpuscular Hemoglobin 28.8 pg (28.0-33.3); Mean Corpuscular Volume 92.6 fL (83.0-100.0); Mean Platelet Volume 11.9 fL (9.4-12.4); Platelet Count 296 K/mcL (140-400); Red Blood Count 3.65 M/mcL (3.82-4.97); Red Cell Distribution Width 15.1 % (11.5-14.5)
[2021-08-05] MEDS: Lithium Carbonate 300 MG CAPSULE PO SCH ×2 (08:49→21:12)
[2021-08-05] MEDS: amLODIPine 5 MG TABLET GTUBE SCH (08:50)
[2021-08-05] MEDS: Pantoprazole 40 MG VIAL IVP SCH (08:54)
[2021-08-05 09:04] LABS: BUN/Creatinine Ratio 36 (6-26); Blood Urea Nitrogen 43 mg/dL (6-20); Carbon Dioxide 22 mEq/L (23-29); Chloride 102 mEq/L (98-107); Glucose 124 mg/dL (70-105); Magnesium 2.3 mg/dL (1.6-2.6); Osmolality,Calculated 288 (280-300); Phosphorous 4.2 mg/dL (2.7-4.5); Potassium 4.4 mEq/L (3.5-5.1); Sodium 133 mEq/L (136-145); eGFR For African Americans > 60 (> 60); eGFR For Non-African Americans 50 (> 60)
[2021-08-05] MEDS: Ringers Solution, Lactated 1,000 ML IVC SCH ×2 (09:12→18:31)
[2021-08-05] MEDS: *HR* HYDROmorphone (PF) 1 MG/ML SYRINGE IVP PRN (14:55)
[2021-08-05] MEDS ORDERED: Clinimix E 5%-15% SOLUTION 2,000 ML with MVI, adult with vitamin K 10 ML IV SCH (17:00)
[2021-08-05] MEDS: methocarbamoL 500 MG TABLET GTUBE SCH (21:12)
[2021-08-05] MEDS: Mirtazapine 15 MG TABLET GTUBE SCH (21:12)
[2021-08-06] MEDS: *HR* Metoprolol 5 MG/5 ML VIAL IVP SCH ×4 (00:23→18:51)
[2021-08-06] MEDS: Piperacillin/Tazobactam 3.375 GM in D5% in Water (Mini-Bag+) 100 ML IVPB SCH ×3 (00:23→17:26)
[2021-08-06] MEDS: Promethazine Syrup 6.25 MG/5 ML GTUBE PRN (00:25)
[2021-08-06] MEDS: Insulin LISPRO 300 UNITS/3 ML VIAL SUBQ SCH ×3 (00:37→08:08)
[2021-08-06 04:33] LABS: Hematocrit 29.1 % (35.3-44.9); Mean Corpuscular HGB Conc 30.9 g/dL (31.6-35.5); Mean Corpuscular Hemoglobin 28.9 pg (28.0-33.3); Mean Corpuscular Volume 93.6 fL (83.0-100.0); Mean Platelet Volume 12.2 fL (9.4-12.4); Platelet Count 256 K/mcL (140-400); Red Blood Count 3.11 M/mcL (3.82-4.97); Red Cell Distribution Width 15.8 % (11.5-14.5); White Blood Count 14.2 K/mcL (4.3-11.1)
[2021-08-06 05:18] LABS: BUN/Creatinine Ratio 27 (6-26); Blood Urea Nitrogen 31 mg/dL (6-20); Calcium 9.1 mg/dL (8.6-10.3); Carbon Dioxide 20 mEq/L (23-29); Chloride 100 mEq/L (98-107); Glucose 87 mg/dL (70-105); Magnesium 1.8 mg/dL (1.6-2.6); Osmolality,Calculated 282 (280-300); Phosphorous 3.4 mg/dL (2.7-4.5); Potassium 4.4 mEq/L (3.5-5.1); Sodium 133 mEq/L (136-145); eGFR For African Americans > 60 (> 60); eGFR For Non-African Americans 52 (> 60)
[2021-08-06] MEDS: *HR* Heparin 5,000 UNIT/ML VIAL SQ SCH ×3 (06:47→20:50)
[2021-08-06] MEDS: amLODIPine 5 MG TABLET GTUBE SCH (09:55)
[2021-08-06] MEDS: Lithium Carbonate 300 MG CAPSULE PO SCH ×2 (09:55→20:50)
[2021-08-06] MEDS: Fluconazole 400 MG/200 ML 400 MG/200 ML BAG IVPB SCH (09:56)
[2021-08-06] MEDS: Pantoprazole 40 MG VIAL IVP SCH (09:56)
[2021-08-06] MEDS: Mirtazapine 15 MG TABLET GTUBE SCH (20:50)
[2021-08-06] MEDS: methocarbamoL 500 MG TABLET GTUBE SCH (20:50)
[2021-08-07] MEDS: *HR* Metoprolol 5 MG/5 ML VIAL IVP SCH ×4 (00:33→19:41)
[2021-08-07] MEDS: Piperacillin/Tazobactam 3.375 GM in D5% in Water (Mini-Bag+) 100 ML IVPB SCH ×3 (00:34→16:01)
[2021-08-07] MEDS: Ringers Solution, Lactated 1,000 ML IVC SCH (00:34)
[2021-08-07] MEDS: *HR* Heparin 5,000 UNIT/ML VIAL SQ SCH ×3 (05:05→20:40)
[2021-08-07 05:39] LABS: Hematocrit 31.2 % (35.3-44.9); Hemoglobin 9.5 g/dL (11.5-15.4); Mean Corpuscular HGB Conc 30.4 g/dL (31.6-35.5); Mean Corpuscular Hemoglobin 28.3 pg (28.0-33.3); Mean Corpuscular Volume 92.9 fL (83.0-100.0); Mean Platelet Volume 12.2 fL (9.4-12.4); Platelet Count 265 K/mcL (140-400); Red Blood Count 3.36 M/mcL (3.82-4.97); Red Cell Distribution Width 15.5 % (11.5-14.5); White Blood Count 13.3 K/mcL (4.3-11.1)
[2021-08-07 05:56] LABS: Calcium 9.3 mg/dL (8.6-10.3); Magnesium 2.1 mg/dL (1.6-2.6); Phosphorous 3.4 mg/dL (2.7-4.5); Potassium 4.4 mEq/L (3.5-5.1)
[2021-08-07] MEDS: Lithium Carbonate 300 MG CAPSULE PO SCH ×2 (08:55→20:40)
[2021-08-07] MEDS: amLODIPine 5 MG TABLET GTUBE SCH ×2 (08:55→09:03)
[2021-08-07] MEDS: Fluconazole 400 MG/200 ML 400 MG/200 ML BAG IVPB SCH (08:56)
[2021-08-07] MEDS: Pantoprazole 40 MG VIAL IVP SCH (08:57)
[2021-08-07] MEDS: *HR* HYDROmorphone (PF) 1 MG/ML SYRINGE IVP PRN (10:51)
[2021-08-07] MEDS: Ondansetron 4 MG/2 ML VIAL IVP PRN (17:09)
[2021-08-07] MEDS: methocarbamoL 500 MG TABLET GTUBE SCH (20:40)
[2021-08-07] MEDS: Mirtazapine 15 MG TABLET GTUBE SCH (20:40)
[2021-08-07] MEDS: Promethazine Syrup 6.25 MG/5 ML GTUBE PRN (20:51)
[2021-08-08] MEDS: *HR* Metoprolol 5 MG/5 ML VIAL IVP SCH ×5 (00:05→23:37)
[2021-08-08] MEDS: Piperacillin/Tazobactam 3.375 GM in D5% in Water (Mini-Bag+) 100 ML IVPB SCH ×4 (00:05→23:36)
[2021-08-08] MEDS: *HR* Heparin 5,000 UNIT/ML VIAL SQ SCH ×3 (05:21→20:05)
[2021-08-08] MEDS: Ringers Solution, Lactated 1,000 ML IVC SCH (05:33)
[2021-08-08 05:53] LABS: Hematocrit 29.5 % (35.3-44.9); Hemoglobin 9.1 g/dL (11.5-15.4); Mean Corpuscular HGB Conc 30.8 g/dL (31.6-35.5); Mean Corpuscular Hemoglobin 29.3 pg (28.0-33.3); Mean Corpuscular Volume 94.9 fL (83.0-100.0); Mean Platelet Volume 11.9 fL (9.4-12.4); Platelet Count 230 K/mcL (140-400); Red Blood Count 3.11 M/mcL (3.82-4.97); Red Cell Distribution Width 15.5 % (11.5-14.5); White Blood Count 12.8 K/mcL (4.3-11.1)
[2021-08-08 06:42] LABS: BUN/Creatinine Ratio 17 (6-26); Blood Urea Nitrogen 19 mg/dL (6-20); Calcium 7.8 mg/dL (8.6-10.3); Carbon Dioxide 22 mEq/L (23-29); Chloride 101 mEq/L (98-107); Glucose 149 mg/dL (70-105); Magnesium 1.9 mg/dL (1.6-2.6); Osmolality,Calculated 281 (280-300); Phosphorous 2.9 mg/dL (2.7-4.5); Potassium 4.5 mEq/L (3.5-5.1); Sodium 133 mEq/L (136-145); eGFR For African Americans > 60 (> 60); eGFR For Non-African Americans 53 (> 60)
[2021-08-08] MEDS: amLODIPine 5 MG TABLET GTUBE SCH (08:08)
[2021-08-08] MEDS: Lithium Carbonate 300 MG CAPSULE PO SCH ×2 (08:08→20:13)
[2021-08-08] MEDS: Pantoprazole 40 MG VIAL IVP SCH (08:08)
[2021-08-08] MEDS: Fluconazole 400 MG/200 ML 400 MG/200 ML BAG IVPB SCH (08:08)
[2021-08-08] MEDS: Ondansetron 4 MG/2 ML VIAL IVP PRN ×2 (08:09→20:28)
[2021-08-08] MEDS: *HR* HYDROmorphone (PF) 1 MG/ML SYRINGE IVP PRN (13:36)
[2021-08-08] MEDS: methocarbamoL 500 MG TABLET GTUBE SCH (20:13)
[2021-08-08] MEDS: Mirtazapine 15 MG TABLET GTUBE SCH (20:13)
[2021-08-09] MEDS: *HR* Heparin 5,000 UNIT/ML VIAL SQ SCH ×3 (04:27→20:20)
[2021-08-09 04:30] LABS: Hematocrit 29.1 % (35.3-44.9); Hemoglobin 9.1 g/dL (11.5-15.4); Mean Corpuscular HGB Conc 31.3 g/dL (31.6-35.5); Mean Corpuscular Hemoglobin 29.5 pg (28.0-33.3); Mean Corpuscular Volume 94.5 fL (83.0-100.0); Mean Platelet Volume 11.8 fL (9.4-12.4); Platelet Count 242 K/mcL (140-400); Red Blood Count 3.08 M/mcL (3.82-4.97); Red Cell Distribution Width 15.4 % (11.5-14.5)
[2021-08-09 04:50] LABS: BUN/Creatinine Ratio 18 (6-26); Blood Urea Nitrogen 18 mg/dL (6-20); Calcium 8.6 mg/dL (8.6-10.3); Carbon Dioxide 23 mEq/L (23-29); Chloride 99 mEq/L (98-107); Glucose 129 mg/dL (70-105); Magnesium 1.9 mg/dL (1.6-2.6); Osmolality,Calculated 276 (280-300); Phosphorous 2.9 mg/dL (2.7-4.5); Potassium 4.8 mEq/L (3.5-5.1); Sodium 131 mEq/L (136-145); eGFR For African Americans > 60 (> 60); eGFR For Non-African Americans 60 (> 60)
[2021-08-09] MEDS: *HR* Metoprolol 5 MG/5 ML VIAL IVP SCH ×4 (05:51→23:52)
[2021-08-09] MEDS: Ringers Solution, Lactated 1,000 ML IVC SCH (05:51)
[2021-08-09] MEDS: Fluconazole 400 MG/200 ML 400 MG/200 ML BAG IVPB SCH (07:32)
[2021-08-09] MEDS: amLODIPine 5 MG TABLET GTUBE SCH (07:33)
[2021-08-09] MEDS: Lithium Carbonate 300 MG CAPSULE PO SCH ×2 (07:33→20:20)
[2021-08-09] MEDS: Pantoprazole 40 MG VIAL IVP SCH (07:33)
[2021-08-09] MEDS: Piperacillin/Tazobactam 3.375 GM in D5% in Water (Mini-Bag+) 100 ML IVPB SCH ×4 (07:33→23:52)
[2021-08-09] MEDS: Ondansetron 4 MG/2 ML VIAL IVP PRN ×3 (07:34→22:27)
[2021-08-09] MEDS: Mirtazapine 15 MG TABLET GTUBE SCH (20:20)
[2021-08-09] MEDS: Promethazine Syrup 6.25 MG/5 ML GTUBE PRN (20:20)
[2021-08-09] MEDS: methocarbamoL 500 MG TABLET GTUBE SCH (20:20)
[2021-08-10] MEDS: Promethazine Syrup 6.25 MG/5 ML GTUBE PRN (02:31)
[2021-08-10 05:13] LABS: Hematocrit 30.7 % (35.3-44.9); Hemoglobin 9.6 g/dL (11.5-15.4); Mean Corpuscular HGB Conc 31.3 g/dL (31.6-35.5); Mean Corpuscular Hemoglobin 29.2 pg (28.0-33.3); Mean Corpuscular Volume 93.3 fL (83.0-100.0); Mean Platelet Volume 11.7 fL (9.4-12.4); Platelet Count 270 K/mcL (140-400); Red Blood Count 3.29 M/mcL (3.82-4.97); Red Cell Distribution Width 15.4 % (11.5-14.5); White Blood Count 16.2 K/mcL (4.3-11.1)
[2021-08-10 05:29] LABS: Alanine Aminotransferase 93 Units/L (7-52); Albumin 3.4 g/dL (3.5-5.7); Albumin/Globulin Ratio 1.1 (1.1-2.2); Alkaline Phosphatase 139 Units/L (34-104); Aspartate Amino Transferase 53 Units/L (13-39); BUN/Creatinine Ratio 18 (6-26); Bilirubin,Indirect 0.2 mg/dL (0.0-1.0); Bilirubin,Total 0.2 mg/dL (0.3-1.0); Blood Urea Nitrogen 21 mg/dL (6-20); Calcium 9.2 mg/dL (8.6-10.3); Carbon Dioxide 26 mEq/L (23-29); Chloride 99 mEq/L (98-107); Globulin 3.1 g/dL (2.4-3.5); Glucose 122 mg/dL (70-105); Osmolality,Calculated 280 (280-300); Potassium 4.9 mEq/L (3.5-5.1); Sodium 133 mEq/L (136-145); Total Protein 6.5 g/dL (6.4-8.9); eGFR For African Americans > 60 (> 60); eGFR For Non-African Americans 50 (> 60)
[2021-08-10] MEDS: *HR* Metoprolol 5 MG/5 ML VIAL IVP SCH ×4 (05:59→23:27)
[2021-08-10] MEDS: *HR* Heparin 5,000 UNIT/ML VIAL SQ SCH ×3 (05:59→19:44)
[2021-08-10] MEDS: Pantoprazole 40 MG VIAL IVP SCH (07:32)
[2021-08-10] MEDS: Fluconazole 400 MG/200 ML 400 MG/200 ML BAG IVPB SCH (07:33)
[2021-08-10] MEDS: Ondansetron 4 MG/2 ML VIAL IVP PRN ×2 (07:33→13:25)
[2021-08-10] MEDS: Piperacillin/Tazobactam 3.375 GM in D5% in Water (Mini-Bag+) 100 ML IVPB SCH ×3 (07:33→23:27)
[2021-08-10] MEDS: amLODIPine 5 MG TABLET GTUBE SCH (07:34)
[2021-08-10] MEDS: Ringers Solution, Lactated 1,000 ML IVC SCH (07:34)
[2021-08-10] MEDS: Lithium Carbonate 300 MG CAPSULE PO SCH ×2 (07:34→20:08)
[2021-08-10] MEDS: *HR* HYDROmorphone (PF) 1 MG/ML SYRINGE IVP PRN (20:08)
[2021-08-10] MEDS: Mirtazapine 15 MG TABLET GTUBE SCH (20:08)
[2021-08-10] MEDS: methocarbamoL 500 MG TABLET GTUBE SCH (20:08)
[2021-08-11] MEDS: *HR* Metoprolol 5 MG/5 ML VIAL IVP SCH ×3 (06:42→18:46)
[2021-08-11] MEDS: *HR* Heparin 5,000 UNIT/ML VIAL SQ SCH ×3 (06:43→21:04)
[2021-08-11] MEDS: Ringers Solution, Lactated 1,000 ML IVC SCH (07:48)
[2021-08-11] MEDS: Piperacillin/Tazobactam 3.375 GM in D5% in Water (Mini-Bag+) 100 ML IVPB SCH ×2 (08:12→15:22)
[2021-08-11] MEDS: Fluconazole 400 MG/200 ML 400 MG/200 ML BAG IVPB SCH (08:14)
[2021-08-11] MEDS: Pantoprazole 40 MG VIAL IVP SCH (08:15)
[2021-08-11] MEDS: Lithium Carbonate 300 MG CAPSULE PO SCH ×2 (08:16→21:04)
[2021-08-11] MEDS: amLODIPine 5 MG TABLET GTUBE SCH (08:16)
[2021-08-11 10:35] LABS: Basophils # 0.1 K/mcL (0.0-0.2); Basophils % 0.5 %; Eosinophils # 0.2 K/mcL (0.0-0.6); Eosinophils % 1.5 %; Hematocrit 28.3 % (35.3-44.9); Hemoglobin 8.8 g/dL (11.5-15.4); Immature Granulocytes % 1.4 % (0-4); Lymphocytes # 1.3 K/mcL (0.6-4.6); Lymphocytes % 8.5 %; Mean Corpuscular HGB Conc 31.1 g/dL (31.6-35.5); Mean Corpuscular Hemoglobin 29.2 pg (28.0-33.3); Mean Platelet Volume 12.1 fL (9.4-12.4); Monocytes # 0.8 K/mcL (0.0-1.3); Monocytes % 5.1 %; Neutrophils # 12.5 K/mcL (1.6-8.9); Platelet Count 250 K/mcL (140-400); Red Blood Count 3.01 M/mcL (3.82-4.97); Red Cell Distribution Width 15.4 % (11.5-14.5)
[2021-08-11 11:42] LABS: BUN/Creatinine Ratio 18 (6-26); Blood Urea Nitrogen 18 mg/dL (6-20); Carbon Dioxide 24 mEq/L (23-29); Chloride 98 mEq/L (98-107); Glucose 86 mg/dL (70-105); Osmolality,Calculated 273 (280-300); Potassium 4.9 mEq/L (3.5-5.1); Sodium 131 mEq/L (136-145); eGFR For African Americans > 60 (> 60); eGFR For Non-African Americans > 60 (> 60)
[2021-08-11] MEDS: Neosporin OINT 15 GM TUBE TP SCH ×2 (15:20→21:05)
[2021-08-11] MEDS: methocarbamoL 500 MG TABLET GTUBE SCH (21:04)
[2021-08-11] MEDS: Mirtazapine 15 MG TABLET GTUBE SCH (21:04)
[2021-08-11] MEDS: *HR* HYDROmorphone (PF) 1 MG/ML SYRINGE IVP PRN (21:05)
[2021-08-11] MEDS: Ondansetron 4 MG/2 ML VIAL IVP PRN (21:15)
[2021-08-11] MEDS: Estradiol 0.1 MG PATCH (WEEKLY) TD SCH (22:14)
[2021-08-12] MEDS: Piperacillin/Tazobactam 3.375 GM in D5% in Water (Mini-Bag+) 100 ML IVPB SCH ×3 (01:52→19:01)
[2021-08-12] MEDS: *HR* Metoprolol 5 MG/5 ML VIAL IVP SCH ×4 (01:53→19:01)
[2021-08-12] MEDS: *HR* Heparin 5,000 UNIT/ML VIAL SQ SCH ×3 (05:47→20:17)
[2021-08-12 06:20] LABS: Hematocrit 29.9 % (35.3-44.9); Hemoglobin 9.2 g/dL (11.5-15.4); Mean Corpuscular HGB Conc 30.8 g/dL (31.6-35.5); Mean Corpuscular Hemoglobin 29.4 pg (28.0-33.3); Mean Corpuscular Volume 95.5 fL (83.0-100.0); Mean Platelet Volume 11.8 fL (9.4-12.4); Platelet Count 252 K/mcL (140-400); Red Blood Count 3.13 M/mcL (3.82-4.97); Red Cell Distribution Width 15.5 % (11.5-14.5); White Blood Count 13.6 K/mcL (4.3-11.1)
[2021-08-12 06:50] LABS: BUN/Creatinine Ratio 17 (6-26); Blood Urea Nitrogen 17 mg/dL (6-20); Calcium 8.8 mg/dL (8.6-10.3); Carbon Dioxide 25 mEq/L (23-29); Chloride 100 mEq/L (98-107); Glucose 129 mg/dL (70-105); Osmolality,Calculated 281 (280-300); Potassium 4.3 mEq/L (3.5-5.1); Sodium 134 mEq/L (136-145); eGFR For African Americans > 60 (> 60); eGFR For Non-African Americans 59 (> 60)
[2021-08-12] MEDS: Pantoprazole 40 MG VIAL IVP SCH (09:22)
[2021-08-12] MEDS: amLODIPine 5 MG TABLET GTUBE SCH (09:22)
[2021-08-12] MEDS: Lithium Carbonate 300 MG CAPSULE PO SCH ×2 (09:22→20:16)
[2021-08-12] MEDS: Fluconazole 400 MG/200 ML 400 MG/200 ML BAG IVPB SCH (09:23)
[2021-08-12] MEDS: Neosporin OINT 15 GM TUBE TP SCH ×2 (09:24→20:16)
[2021-08-12] MEDS: Ringers Solution, Lactated 1,000 ML IVC SCH (13:22)
[2021-08-12] MEDS: methocarbamoL 500 MG TABLET GTUBE SCH (20:16)
[2021-08-12] MEDS: Mirtazapine 15 MG TABLET GTUBE SCH (20:16)
[2021-08-12] MEDS: Ondansetron 4 MG/2 ML VIAL IVP PRN (20:27)
[2021-08-13] MEDS: Piperacillin/Tazobactam 3.375 GM in D5% in Water (Mini-Bag+) 100 ML IVPB SCH ×3 (00:19→17:15)
[2021-08-13] MEDS: *HR* Metoprolol 5 MG/5 ML VIAL IVP SCH ×4 (00:20→17:16)
[2021-08-13] MEDS: *HR* Heparin 5,000 UNIT/ML VIAL SQ SCH (05:54)
[2021-08-13] MEDS: Neosporin OINT 15 GM TUBE TP SCH (08:34)
[2021-08-13] MEDS: Fluconazole 400 MG/200 ML 400 MG/200 ML BAG IVPB SCH (08:37)
[2021-08-13] MEDS: Ringers Solution, Lactated 1,000 ML IVC SCH ×2 (08:37→20:10)
[2021-08-13] MEDS: Pantoprazole 40 MG VIAL IVP SCH (08:38)
[2021-08-13] MEDS: *HR* HYDROmorphone (PF) 1 MG/ML SYRINGE IVP PRN (09:40)
[2021-08-13] MEDS: Lithium Carbonate 300 MG CAPSULE PO SCH ×2 (10:30→20:12)
[2021-08-13] MEDS: amLODIPine 5 MG TABLET GTUBE SCH (10:30)
[2021-08-13] MEDS: Ondansetron 4 MG/2 ML VIAL IVP PRN ×2 (13:05→20:21)
[2021-08-13] MEDS ORDERED: Iopamidol - 370 500 ML MLS PO ONE (14:50)
[2021-08-13] MEDS: Mirtazapine 15 MG TABLET GTUBE SCH (20:13)
[2021-08-13] MEDS: methocarbamoL 500 MG TABLET GTUBE SCH (20:13)
[2021-08-14] MEDS: *HR* Metoprolol 5 MG/5 ML VIAL IVP SCH ×4 (00:27→17:52)
[2021-08-14] MEDS: Piperacillin/Tazobactam 3.375 GM in D5% in Water (Mini-Bag+) 100 ML IVPB SCH ×3 (00:28→17:51)
[2021-08-14 04:40] LABS: Hemoglobin 9.3 g/dL (11.5-15.4); Mean Corpuscular Hemoglobin 29.1 pg (28.0-33.3); Mean Corpuscular Volume 93.8 fL (83.0-100.0); Mean Platelet Volume 11.5 fL (9.4-12.4); Platelet Count 301 K/mcL (140-400); Red Cell Distribution Width 15.2 % (11.5-14.5); White Blood Count 13.8 K/mcL (4.3-11.1)
[2021-08-14 04:41] LABS: BUN/Creatinine Ratio 16 (6-26); Blood Urea Nitrogen 17 mg/dL (6-20); Calcium 9.1 mg/dL (8.6-10.3); Carbon Dioxide 27 mEq/L (23-29); Chloride 99 mEq/L (98-107); Glucose 115 mg/dL (70-105); Magnesium 2.1 mg/dL (1.6-2.6); Osmolality,Calculated 280 (280-300); Potassium 5.1 mEq/L (3.5-5.1); Sodium 134 mEq/L (136-145); eGFR For African Americans > 60 (> 60); eGFR For Non-African Americans 57 (> 60)
[2021-08-14] MEDS: *HR* HYDROmorphone (PF) 1 MG/ML SYRINGE IVP PRN (04:54)
[2021-08-14] MEDS: Fluconazole 400 MG/200 ML 400 MG/200 ML BAG IVPB SCH (08:13)
[2021-08-14] MEDS: Pantoprazole 40 MG VIAL IVP SCH (08:14)
[2021-08-14] MEDS: Lithium Carbonate 300 MG CAPSULE PO SCH ×2 (08:14→20:03)
[2021-08-14] MEDS: amLODIPine 5 MG TABLET GTUBE SCH (08:14)
[2021-08-14] MEDS: Ondansetron 4 MG/2 ML VIAL IVP PRN (19:59)
[2021-08-14] MEDS: Mirtazapine 15 MG TABLET GTUBE SCH (20:03)
[2021-08-14] MEDS: methocarbamoL 500 MG TABLET GTUBE SCH (20:03)
[2021-08-15] MEDS: Ringers Solution, Lactated 1,000 ML IVC SCH (00:40)
[2021-08-15] MEDS: Piperacillin/Tazobactam 3.375 GM in D5% in Water (Mini-Bag+) 100 ML IVPB SCH ×4 (00:43→16:34)
[2021-08-15] MEDS: *HR* Metoprolol 5 MG/5 ML VIAL IVP SCH ×2 (00:44→05:09)
[2021-08-15] MEDS: Ondansetron 4 MG/2 ML VIAL IVP PRN (03:26)
[2021-08-15] MEDS: Fluconazole 400 MG/200 ML 400 MG/200 ML BAG IVPB SCH (09:15)
[2021-08-15] MEDS: Lithium Carbonate 300 MG CAPSULE PO SCH ×2 (09:18→21:05)
[2021-08-15] MEDS: amLODIPine 5 MG TABLET GTUBE SCH (09:18)
[2021-08-15] MEDS: Pantoprazole 40 MG VIAL IVP SCH (09:26)
[2021-08-15] MEDS ORDERED: *HR* Metoprolol 5 MG/5 ML VIAL IVP PRN (10:37)
[2021-08-15] MEDS ORDERED: Piperacillin/Tazobactam 3.375 GM VIAL ONE ×2 (16:17→16:18)
[2021-08-15] MEDS ORDERED: *HR* Alteplase (Cathflo) 2 MG VIAL IVP ONE (16:45)
[2021-08-15] MEDS: Mirtazapine 15 MG TABLET GTUBE SCH (21:05)
[2021-08-15] MEDS: methocarbamoL 500 MG TABLET GTUBE SCH (21:05)
[2021-08-15] MEDS: MetroNIDAZOLE Vaginal Gel VG SCH (22:31)
[2021-08-16] MEDS: Piperacillin/Tazobactam 3.375 GM in D5% in Water (Mini-Bag+) 100 ML IVPB SCH ×2 (01:13→08:24)
[2021-08-16] MEDS: *HR* HYDROmorphone (PF) 1 MG/ML SYRINGE IVP PRN (01:18)
[2021-08-16 01:24] LABS: Hematocrit 29.5 % (35.3-44.9); Hemoglobin 9.3 g/dL (11.5-15.4); Mean Corpuscular HGB Conc 31.5 g/dL (31.6-35.5); Mean Corpuscular Hemoglobin 29.3 pg (28.0-33.3); Mean Corpuscular Volume 93.1 fL (83.0-100.0); Mean Platelet Volume 11.2 fL (9.4-12.4); Platelet Count 306 K/mcL (140-400); Red Blood Count 3.17 M/mcL (3.82-4.97); Red Cell Distribution Width 15.1 % (11.5-14.5)
[2021-08-16 02:04] LABS: BUN/Creatinine Ratio 18 (6-26); Blood Urea Nitrogen 17 mg/dL (6-20); Calcium 9.1 mg/dL (8.6-10.3); Carbon Dioxide 25 mEq/L (23-29); Chloride 100 mEq/L (98-107); Glucose 124 mg/dL (70-105); Magnesium 1.9 mg/dL (1.6-2.6); Osmolality,Calculated 281 (280-300); Potassium 4.5 mEq/L (3.5-5.1); Sodium 134 mEq/L (136-145); eGFR For African Americans > 60 (> 60); eGFR For Non-African Americans > 60 (> 60)
[2021-08-16] MEDS: Ringers Solution, Lactated 1,000 ML IVC SCH (08:21)
[2021-08-16] MEDS: Fluconazole 400 MG/200 ML 400 MG/200 ML BAG IVPB SCH (08:21)
[2021-08-16] MEDS: Pantoprazole 40 MG VIAL IVP SCH (08:22)
[2021-08-16] MEDS: Lithium Carbonate 300 MG CAPSULE PO SCH ×2 (08:23→20:50)
[2021-08-16] MEDS: amLODIPine 5 MG TABLET GTUBE SCH (08:23)
[2021-08-16] MEDS: Ondansetron 4 MG/2 ML VIAL IVP PRN (20:43)
[2021-08-16] MEDS: methocarbamoL 500 MG TABLET GTUBE SCH (20:50)
[2021-08-16] MEDS: Mirtazapine 15 MG TABLET GTUBE SCH (20:51)
[2021-08-16] MEDS: MetroNIDAZOLE Vaginal Gel VG SCH (20:51)
[2021-08-17] MEDS: Lithium Carbonate 300 MG CAPSULE PO SCH ×3 (00:41→20:44)
[2021-08-17] MEDS: Mirtazapine 15 MG TABLET GTUBE SCH ×2 (00:43→20:44)
[2021-08-17] MEDS: methocarbamoL 500 MG TABLET GTUBE SCH ×2 (00:43→20:44)
[2021-08-17] MEDS: Piperacillin/Tazobactam 3.375 GM in D5% in Water (Mini-Bag+) 100 ML IVPB SCH ×4 (00:50→23:40)
[2021-08-17] MEDS: *HR* HYDROmorphone (PF) 1 MG/ML SYRINGE IVP PRN (00:51)
[2021-08-17] MEDS: Ondansetron 4 MG/2 ML VIAL IVP PRN ×2 (06:16→20:47)
[2021-08-17] MEDS: Pantoprazole 40 MG VIAL IVP SCH (08:47)
[2021-08-17] MEDS: Fluconazole 400 MG/200 ML 400 MG/200 ML BAG IVPB SCH (08:47)
[2021-08-17] MEDS: amLODIPine 5 MG TABLET GTUBE SCH (08:48)
[2021-08-17] MEDS: Ringers Solution, Lactated 1,000 ML IVC SCH (12:15)
[2021-08-18] MEDS: *HR* HYDROmorphone (PF) 1 MG/ML SYRINGE IVP PRN ×2 (00:53→20:37)
[2021-08-18 04:12] LABS: Hematocrit 29.2 % (35.3-44.9); Hemoglobin 9.3 g/dL (11.5-15.4); Mean Corpuscular HGB Conc 31.8 g/dL (31.6-35.5); Mean Corpuscular Hemoglobin 29.6 pg (28.0-33.3); Mean Platelet Volume 10.5 fL (9.4-12.4); Platelet Count 319 K/mcL (140-400); Red Blood Count 3.14 M/mcL (3.82-4.97); Red Cell Distribution Width 15.3 % (11.5-14.5); White Blood Count 13.8 K/mcL (4.3-11.1)
[2021-08-18 04:33] LABS: BUN/Creatinine Ratio 16 (6-26); Blood Urea Nitrogen 14 mg/dL (6-20); Calcium 9.2 mg/dL (8.6-10.3); Carbon Dioxide 25 mEq/L (23-29); Chloride 100 mEq/L (98-107); Glucose 98 mg/dL (70-105); Osmolality,Calculated 276 (280-300); Potassium 4.4 mEq/L (3.5-5.1); Sodium 133 mEq/L (136-145); eGFR For African Americans > 60 (> 60); eGFR For Non-African Americans > 60 (> 60)
[2021-08-18] MEDS: Piperacillin/Tazobactam 3.375 GM in D5% in Water (Mini-Bag+) 100 ML IVPB SCH ×2 (09:17→16:16)
[2021-08-18] MEDS: Fluconazole 400 MG/200 ML 400 MG/200 ML BAG IVPB SCH (09:21)
[2021-08-18] MEDS: Pantoprazole 40 MG VIAL IVP SCH (09:28)
[2021-08-18] MEDS: amLODIPine 5 MG TABLET GTUBE SCH ×2 (09:30→15:56)
[2021-08-18] MEDS: Lithium Carbonate 300 MG CAPSULE PO SCH ×3 (09:30→20:38)
[2021-08-18] MEDS: Estradiol 0.1 MG PATCH (WEEKLY) TD SCH (16:07)
[2021-08-18] MEDS: Ringers Solution, Lactated 1,000 ML IVC SCH (16:30)
[2021-08-18] MEDS: methocarbamoL 500 MG TABLET GTUBE SCH (20:38)
[2021-08-18] MEDS: Mirtazapine 15 MG TABLET GTUBE SCH (20:38)
[2021-08-19] MEDS: Piperacillin/Tazobactam 3.375 GM in D5% in Water (Mini-Bag+) 100 ML IVPB SCH ×4 (00:26→23:49)
[2021-08-19] MEDS ORDERED: 0.9 % Sodium Chloride 500 ML ONE ×2 (09:43→10:04)
[2021-08-19] MEDS ORDERED: *HR* FentaNYL (PF) 100 MCG/2 ML VIAL ONE (10:04)
[2021-08-19] MEDS ORDERED: *HR* FentaNYL (PF) 100 MCG/2 ML VIAL IVP ONE (10:04)
[2021-08-19] MEDS ORDERED: Iopamidol - 300 50 ML VIAL IVP ONE (10:29)
[2021-08-19] MEDS: amLODIPine 5 MG TABLET GTUBE SCH (11:42)
[2021-08-19] MEDS: Fluconazole 400 MG/200 ML 400 MG/200 ML BAG IVPB SCH (11:42)
[2021-08-19] MEDS: Pantoprazole 40 MG VIAL IVP SCH (11:44)
[2021-08-19] MEDS: Ondansetron 4 MG/2 ML VIAL IVP PRN (12:10)
[2021-08-19] MEDS: *HR* HYDROmorphone (PF) 1 MG/ML SYRINGE IVP PRN (12:12)
[2021-08-19] MEDS: Ringers Solution, Lactated 1,000 ML IVC SCH (17:18)
[2021-08-19] MEDS: Mirtazapine 15 MG TABLET GTUBE SCH (20:59)
[2021-08-19] MEDS: Lithium Carbonate 300 MG CAPSULE PO SCH (20:59)
[2021-08-19] MEDS: methocarbamoL 500 MG TABLET GTUBE SCH (21:00)
[2021-08-20 03:56] LABS: Hematocrit 29.1 % (35.3-44.9); Hemoglobin 9.3 g/dL (11.5-15.4); Mean Corpuscular Hemoglobin 29.2 pg (28.0-33.3); Mean Corpuscular Volume 91.2 fL (83.0-100.0); Mean Platelet Volume 10.3 fL (9.4-12.4); Platelet Count 371 K/mcL (140-400); Red Blood Count 3.19 M/mcL (3.82-4.97); Red Cell Distribution Width 14.7 % (11.5-14.5); White Blood Count 15.1 K/mcL (4.3-11.1)
[2021-08-20 04:20] LABS: BUN/Creatinine Ratio 13 (6-26); Blood Urea Nitrogen 12 mg/dL (6-20); Calcium 9.2 mg/dL (8.6-10.3); Carbon Dioxide 25 mEq/L (23-29); Chloride 100 mEq/L (98-107); Glucose 86 mg/dL (70-105); Osmolality,Calculated 279 (280-300); Potassium 3.9 mEq/L (3.5-5.1); Sodium 135 mEq/L (136-145); eGFR For African Americans > 60 (> 60); eGFR For Non-African Americans > 60 (> 60)
[2021-08-20] MEDS: Piperacillin/Tazobactam 3.375 GM in D5% in Water (Mini-Bag+) 100 ML IVPB SCH ×2 (07:54→16:14)
[2021-08-20] MEDS: Fluconazole 400 MG/200 ML 400 MG/200 ML BAG IVPB SCH (07:55)
[2021-08-20] MEDS: amLODIPine 5 MG TABLET GTUBE SCH ×2 (07:56→09:43)
[2021-08-20] MEDS: Pantoprazole 40 MG VIAL IVP SCH ×2 (07:56→07:59)
[2021-08-20] MEDS: Lithium Carbonate 300 MG CAPSULE PO SCH ×3 (07:56→21:05)
[2021-08-20] MEDS ORDERED: Lidocaine -MPF 1% 5 ML AMPUL INFILT ONE (08:39)
[2021-08-20] MEDS: *HR* HYDROmorphone (PF) 1 MG/ML SYRINGE IVP PRN ×2 (09:04→21:05)
[2021-08-20 14:58] LABS: Bilirubin,Urine Negative (Negative); Blood,Urine Negative (Negative); Clarity,Urine Clear (Clear); Color,Urine Light-Yellow (Yellow); Glucose,Urine (UA) Normal (Normal); Ketones,Urine Negative (Negative); Leukocyte Esterase,Urine Negative (Negative); Nitrite,Urine Negative (Negative); PH,Urine 6.5 pH Units (5.0-8.0); Protein,Urine Trace mg/dL (Neg-Trace); Specific Gravity,Urine 1.014 (1.010-1.025); Urobilinogen,Urine Normal (Normal)
[2021-08-20] MEDS: Ringers Solution, Lactated 1,000 ML IVC SCH (16:13)
[2021-08-20] MEDS: methocarbamoL 500 MG TABLET GTUBE SCH (21:05)
[2021-08-20] MEDS: Mirtazapine 15 MG TABLET GTUBE SCH (21:05)
[2021-08-21] MEDS: Piperacillin/Tazobactam 3.375 GM in D5% in Water (Mini-Bag+) 100 ML IVPB SCH ×3 (00:15→16:18)
[2021-08-21] MEDS: *HR* HYDROmorphone (PF) 1 MG/ML SYRINGE IVP PRN (04:01)
[2021-08-21] MEDS: Pantoprazole 40 MG VIAL IVP SCH (07:47)
[2021-08-21] MEDS: Fluconazole 400 MG/200 ML 400 MG/200 ML BAG IVPB SCH (07:49)
[2021-08-21] MEDS: Lithium Carbonate 300 MG CAPSULE PO SCH ×2 (07:50→19:58)
[2021-08-21] MEDS: amLODIPine 5 MG TABLET GTUBE SCH (07:50)
[2021-08-21] MEDS: Ringers Solution, Lactated 1,000 ML IVC SCH (16:24)
[2021-08-21] MEDS: Mirtazapine 15 MG TABLET GTUBE SCH (19:58)
[2021-08-21] MEDS: methocarbamoL 500 MG TABLET GTUBE SCH (19:58)
[2021-08-22] MEDS: Piperacillin/Tazobactam 3.375 GM in D5% in Water (Mini-Bag+) 100 ML IVPB SCH ×2 (00:28→08:49)
[2021-08-22 04:00] LABS: Hematocrit 26.6 % (35.3-44.9); Hemoglobin 8.2 g/dL (11.5-15.4); Mean Corpuscular HGB Conc 30.8 g/dL (31.6-35.5); Mean Corpuscular Hemoglobin 29.7 pg (28.0-33.3); Mean Corpuscular Volume 96.4 fL (83.0-100.0); Mean Platelet Volume 10.2 fL (9.4-12.4); Platelet Count 330 K/mcL (140-400); Red Blood Count 2.76 M/mcL (3.82-4.97); Red Cell Distribution Width 15.2 % (11.5-14.5); White Blood Count 9.5 K/mcL (4.3-11.1)
[2021-08-22 04:20] LABS: BUN/Creatinine Ratio 15 (6-26); Blood Urea Nitrogen 10 mg/dL (6-20); Calcium 8.4 mg/dL (8.6-10.3); Carbon Dioxide 22 mEq/L (23-29); Chloride 103 mEq/L (98-107); Glucose 111 mg/dL (70-105); Osmolality,Calculated 280 (280-300); Potassium 4.1 mEq/L (3.5-5.1); Sodium 135 mEq/L (136-145); eGFR For African Americans > 60 (> 60); eGFR For Non-African Americans > 60 (> 60)
[2021-08-22] MEDS: Pantoprazole 40 MG VIAL IVP SCH (08:50)
[2021-08-22] MEDS: Lithium Carbonate 300 MG CAPSULE PO SCH ×2 (08:51→20:53)
[2021-08-22] MEDS: Fluconazole 400 MG/200 ML 400 MG/200 ML BAG IVPB SCH (08:54)
[2021-08-22] MEDS: Amoxicillin/Clavulanate 400 MG/5 ML UDC GTUBE SCH (17:48)
[2021-08-22] MEDS: methocarbamoL 500 MG TABLET GTUBE SCH (20:53)
[2021-08-22] MEDS: Mirtazapine 15 MG TABLET GTUBE SCH (20:53)
[2021-08-23] MEDS: Amoxicillin/Clavulanate 400 MG/5 ML UDC GTUBE SCH ×2 (07:59→18:13)
[2021-08-23] MEDS: Lithium Carbonate 300 MG CAPSULE PO SCH ×2 (08:46→20:55)
[2021-08-23] MEDS: Fluconazole 40 MG/ML UDC PO SCH (08:47)
[2021-08-23] MEDS: Pantoprazole 40 MG VIAL IVP SCH (08:47)
[2021-08-23] MEDS: methocarbamoL 500 MG TABLET GTUBE SCH (20:55)
[2021-08-23] MEDS: Mirtazapine 15 MG TABLET GTUBE SCH (20:57)
[2021-08-23] MEDS: Ondansetron 4 MG/2 ML VIAL IVP PRN (21:13)
[2021-08-24 04:23] LABS: Hematocrit 31.7 % (35.3-44.9); Mean Corpuscular HGB Conc 32.2 g/dL (31.6-35.5); Mean Corpuscular Hemoglobin 29.7 pg (28.0-33.3); Mean Corpuscular Volume 92.2 fL (83.0-100.0); Mean Platelet Volume 10.1 fL (9.4-12.4); Platelet Count 430 K/mcL (140-400); Red Blood Count 3.44 M/mcL (3.82-4.97); Red Cell Distribution Width 14.7 % (11.5-14.5); White Blood Count 13.4 K/mcL (4.3-11.1)
[2021-08-24 04:25] LABS: Hemoglobin 10.2 g/dL (11.5-15.4)
[2021-08-24 04:55] LABS: Alanine Aminotransferase 56 Units/L (7-52); Albumin 3.4 g/dL (3.5-5.7); Albumin/Globulin Ratio 1.1 (1.1-2.2); Alkaline Phosphatase 123 Units/L (34-104); Aspartate Amino Transferase 36 Units/L (13-39); BUN/Creatinine Ratio 21 (6-26); Bilirubin,Indirect 0.2 mg/dL (0.0-1.0); Bilirubin,Total 0.2 mg/dL (0.3-1.0); Blood Urea Nitrogen 16 mg/dL (6-20); Calcium 9.1 mg/dL (8.6-10.3); Carbon Dioxide 27 mEq/L (23-29); Chloride 102 mEq/L (98-107); Glucose 103 mg/dL (70-105); Osmolality,Calculated 283 (280-300); Potassium 4.6 mEq/L (3.5-5.1); Sodium 136 mEq/L (136-145); Total Protein 6.4 g/dL (6.4-8.9); eGFR For African Americans > 60 (> 60); eGFR For Non-African Americans > 60 (> 60)
[2021-08-24] MEDS: Amoxicillin/Clavulanate 400 MG/5 ML UDC GTUBE SCH ×2 (08:03→18:12)
[2021-08-24] MEDS: Lithium Carbonate 300 MG CAPSULE PO SCH ×2 (08:53→20:56)
[2021-08-24] MEDS: Famotidine 20 MG TABLET GTUBE SCH (08:53)
[2021-08-24] MEDS: Fluconazole 40 MG/ML UDC PO SCH (08:54)
[2021-08-24] MEDS: Ondansetron 4 MG/2 ML VIAL IVP PRN ×2 (11:12→18:14)
[2021-08-24] MEDS ORDERED: Estradiol 0.1 MG PATCH (WEEKLY) TD SCH (14:45)
[2021-08-24] MEDS: Mirtazapine 15 MG TABLET GTUBE SCH (20:56)
[2021-08-24] MEDS: methocarbamoL 500 MG TABLET GTUBE SCH (20:56)
[2021-08-24] MEDS: *HR* HYDROmorphone (PF) 1 MG/ML SYRINGE IVP PRN (20:56)
[2021-08-25] MEDS: Famotidine 20 MG TABLET GTUBE SCH (09:09)
[2021-08-25] MEDS: Lithium Carbonate 300 MG CAPSULE PO SCH ×2 (09:09→19:46)
[2021-08-25] MEDS: Amoxicillin/Clavulanate 400 MG/5 ML UDC GTUBE SCH ×2 (09:10→19:46)
[2021-08-25] MEDS: Fluconazole 40 MG/ML UDC PO SCH (09:10)
[2021-08-25] MEDS: Ondansetron 4 MG/2 ML VIAL IVP PRN ×2 (15:03→20:33)
[2021-08-25] MEDS: Mirtazapine 15 MG TABLET GTUBE SCH (19:46)
[2021-08-25] MEDS: methocarbamoL 500 MG TABLET GTUBE SCH (19:46)
[2021-08-25] MEDS: *HR* HYDROmorphone (PF) 1 MG/ML SYRINGE IVP PRN (20:40)
[2021-08-26] MEDS: *HR* HYDROmorphone (PF) 1 MG/ML SYRINGE IVP PRN (05:13)
[2021-08-26] MEDS: Amoxicillin/Clavulanate 400 MG/5 ML UDC GTUBE SCH (06:33)
[2021-08-26] MEDS ORDERED: Fluconazole 40 MG/ML UDC GTUBE SCH (09:00)
[2021-08-26] MEDS: Lithium Carbonate 300 MG CAPSULE PO SCH (09:07)
[2021-08-26] MEDS: Famotidine 20 MG TABLET GTUBE SCH (09:07)
[2021-08-26 09:38] VITALS: O2SAT 100
[2021-08-26 11:42] VITALS: BP 132/93
[2021-08-26 11:43] VITALS: PULSE 94; TEMP 98.1
[2021-08-26] MEDS: Ondansetron 4 MG/2 ML VIAL IVP PRN (12:36)
== END 2021-08-26 13:45 | disposition home health service (06) | DRG 326 ==
LOC: SAMDAY 08:22 → 2NENU 08:22 → 2NNU 07-01 16:51 → ICNU 07-01 18:10 → 2NNU 07-26 00:05
PROVIDERS: ADMIT Thoracic Surgery (Cardiothoracic Vascular Surgery); ATTEND Thoracic Surgery (Cardiothoracic Vascular Surgery)
PROC: IRDRAIN (2021-07-06 11:55)

== ENCOUNTER 2021-09-19 17:37 | Inpatient (IN) ==
[2021-09-19] MEDS ORDERED: Ondansetron ODT 4 MG TAB.RAPDIS SL ONE (20:21)
[2021-09-19 23:03] LABS: Basophils # 0.1 K/mcL (0.0-0.2); Basophils % 0.5 %; Eosinophils # 0.2 K/mcL (0.0-0.6); Eosinophils % 0.9 %; Hematocrit 37.3 % (35.3-44.9); Hemoglobin 12.2 g/dL (11.5-15.4); Immature Granulocytes % 0.8 % (0-4); Lymphocytes # 2.8 K/mcL (0.6-4.6); Lymphocytes % 14.5 %; Mean Corpuscular HGB Conc 32.7 g/dL (31.6-35.5); Mean Corpuscular Hemoglobin 28.6 pg (28.0-33.3); Mean Corpuscular Volume 87.4 fL (83.0-100.0); Mean Platelet Volume 11.7 fL (9.4-12.4); Monocytes # 1.1 K/mcL (0.0-1.3); Monocytes % 5.8 %; Neutrophils # 14.7 K/mcL (1.6-8.9); Platelet Count 430 K/mcL (140-400); Red Blood Count 4.27 M/mcL (3.82-4.97); Red Cell Distribution Width 13.3 % (11.5-14.5); Segmented Neutrophils % 77.5 %
[2021-09-19 23:27] LABS: Alanine Aminotransferase 25 Units/L (7-52); Albumin/Globulin Ratio 1.1 (1.1-2.2); Alkaline Phosphatase 100 Units/L (34-104); Aspartate Amino Transferase 37 Units/L (13-39); BUN/Creatinine Ratio 33 (6-26); Bilirubin,Indirect 0.4 mg/dL (0.0-1.0); Bilirubin,Total 0.4 mg/dL (0.3-1.0); Blood Urea Nitrogen 24 mg/dL (6-20); Calcium 10.3 mg/dL (8.6-10.3); Carbon Dioxide 32 mEq/L (23-29); Chloride 96 mEq/L (98-107); Globulin 3.6 g/dL (2.4-3.5); Glucose 87 mg/dL (70-105); Osmolality,Calculated 289 (280-300); Potassium 3.8 mEq/L (3.5-5.1); Sodium 138 mEq/L (136-145); Total Protein 7.6 g/dL (6.4-8.9)
[2021-09-20] MEDS ORDERED: Iopamidol - 370 500 ML MLS IVP ONE (00:10)
[2021-09-20] MEDS ORDERED: Naloxone 0.4 MG/ML INJ IVP PRN (00:18)
[2021-09-20] MEDS ORDERED: Ondansetron ODT 4 MG TAB.RAPDIS SL PRN (00:18)
[2021-09-20] MEDS ORDERED: 0.9 % Sodium Chloride 1,000 ML IVC SCH (00:30)
[2021-09-20 01:37] LABS: Hematocrit 35.6 % (35.3-44.9); Hemoglobin 11.5 g/dL (11.5-15.4); Mean Corpuscular HGB Conc 32.3 g/dL (31.6-35.5); Mean Corpuscular Hemoglobin 28.1 pg (28.0-33.3); Mean Platelet Volume 11.6 fL (9.4-12.4); Platelet Count 432 K/mcL (140-400); Red Blood Count 4.09 M/mcL (3.82-4.97); Red Cell Distribution Width 13.2 % (11.5-14.5); White Blood Count 17.2 K/mcL (4.3-11.1)
[2021-09-20] MEDS ORDERED: *HR* Promethazine 25 MG/ML VIAL IM PRN (01:48)
[2021-09-20 01:50] LABS: BUN/Creatinine Ratio 33 (6-26); Blood Urea Nitrogen 24 mg/dL (6-20); Calcium 9.9 mg/dL (8.6-10.3); Carbon Dioxide 28 mEq/L (23-29); Chloride 97 mEq/L (98-107); Glucose 110 mg/dL (70-105); Osmolality,Calculated 287 (280-300); Potassium 3.7 mEq/L (3.5-5.1); Sodium 136 mEq/L (136-145)
[2021-09-20] MEDS: Amoxicillin/Clavulanate 400 MG/5 ML UDC GTUBE SCH ×3 (03:27→16:12)
[2021-09-20] MEDS ORDERED: 0.9 % Sodium Chloride 500 ML ONE (10:34)
[2021-09-20] MEDS ORDERED: Lidocaine 1% 20 ML MDV ONE (10:34)
[2021-09-20] MEDS ORDERED: Ketorolac 30 MG/ML VIAL IVP ONE (11:11)
[2021-09-20] MEDS: 0.9 % Sodium Chloride 1,000 ML IVC SCH ×2 (13:43→23:22)
[2021-09-20] MEDS ORDERED: Ondansetron ODT 4 MG TAB.RAPDIS GTUBE PRN (20:45)
[2021-09-20] MEDS ORDERED: Mirtazapine 15 MG TABLET GTUBE SCH (21:00)
[2021-09-20] MEDS ORDERED: methocarbamoL 500 MG TABLET GTUBE SCH (21:00)
[2021-09-20] MEDS ORDERED: D5% in Water 1,000 ML IVC PRN (23:14)
[2021-09-20] MEDS ORDERED: Dextrose Gel 15 GM/37.5 ML TUBE PO PRN ×2 (23:14)
[2021-09-20] MEDS: *HR* Dextrose 50 % in Water (Syg) 50 ML SYRINGE IVP PRN (23:22)
[2021-09-21] MEDS: *HR* Dextrose 50 % in Water (Syg) 50 ML SYRINGE IVP PRN ×2 (03:17→07:00)
[2021-09-21] MEDS: Amoxicillin/Clavulanate 400 MG/5 ML UDC GTUBE SCH (03:17)
[2021-09-21] MEDS ORDERED: Famotidine 20 MG TABLET GTUBE SCH (09:00)
[2021-09-21] MEDS ORDERED: cefTRIAXone 1,000 MG in 0.9 % Sodium Chloride 10 ML IVP SCH (09:00)
[2021-09-21 09:08] LABS: Basophils % 0.3 %; Eosinophils # 0.2 K/mcL (0.0-0.6); Eosinophils % 1.5 %; Hematocrit 29.6 % (35.3-44.9); Immature Granulocytes % 0.5 % (0-4); Lymphocytes # 1.2 K/mcL (0.6-4.6); Lymphocytes % 10.3 %; Mean Corpuscular HGB Conc 32.4 g/dL (31.6-35.5); Mean Corpuscular Hemoglobin 28.7 pg (28.0-33.3); Mean Corpuscular Volume 88.4 fL (83.0-100.0); Monocytes # 0.7 K/mcL (0.0-1.3); Monocytes % 5.9 %; Neutrophils # 9.7 K/mcL (1.6-8.9); Platelet Count 306 K/mcL (140-400); Red Blood Count 3.35 M/mcL (3.82-4.97); Red Cell Distribution Width 13.1 % (11.5-14.5); Segmented Neutrophils % 81.5 %; White Blood Count 11.9 K/mcL (4.3-11.1)
[2021-09-21 09:09] LABS: Hemoglobin 9.6 g/dL (11.5-15.4)
[2021-09-21] MEDS ORDERED: *HR* LORazepam 2 MG/ML VIAL IVP PRN (09:23)
[2021-09-21] MEDS ORDERED: *HR* Metoprolol 5 MG/5 ML VIAL IVP PRN (09:26)
[2021-09-21 09:28] LABS: BUN/Creatinine Ratio 33 (6-26); Blood Urea Nitrogen 21 mg/dL (6-20); Calcium 8.4 mg/dL (8.6-10.3); Carbon Dioxide 26 mEq/L (23-29); Chloride 104 mEq/L (98-107); Glucose 81 mg/dL (70-105); Osmolality,Calculated 286 (280-300); Potassium 3.4 mEq/L (3.5-5.1); Sodium 137 mEq/L (136-145)
[2021-09-21] MEDS: 0.9 % Sodium Chloride 1,000 ML IVC SCH (09:33)
[2021-09-21] MEDS ORDERED: Valproic Acid INJ 500 MG in 0.9 % Sodium Chloride 100 ML IVPB SCH (10:00)
[2021-09-21 14:03] LABS: BUN/Creatinine Ratio 25 (6-26); Blood Urea Nitrogen 17 mg/dL (6-20); Calcium 8.7 mg/dL (8.6-10.3); Carbon Dioxide 23 mEq/L (23-29); Chloride 102 mEq/L (98-107); Glucose 76 mg/dL (70-105); Osmolality,Calculated 280 (280-300); Potassium 3.6 mEq/L (3.5-5.1); Sodium 135 mEq/L (136-145)
[2021-09-21] MEDS ORDERED: Estradiol 0.1 MG PATCH (WEEKLY) TD SCH (15:15)
[2021-09-21] MEDS: D5% in Water 1,000 ML IVC SCH (16:34)
[2021-09-21] MEDS: AMOXICILLIN GTUBE SCH (16:37)
[2021-09-21] MEDS: CLAVULANATE GTUBE SCH (16:37)
[2021-09-21] MEDS: Fluconazole 40 MG/ML MLS GTUBE SCH (16:37)
[2021-09-21] MEDS ORDERED: HydrOXYzine 100 MG/2 ML VIAL IM SCH (21:00)
[2021-09-21] MEDS: Famotidine 20 MG TABLET GTUBE SCH (21:42)
[2021-09-21] MEDS: Mirtazapine 15 MG TABLET GTUBE SCH (21:42)
[2021-09-21] MEDS: methocarbamoL 500 MG TABLET GTUBE SCH (21:42)
[2021-09-21] MEDS: Lithium Carbonate 300 MG CAPSULE PO SCH (21:42)
[2021-09-21] MEDS: Neosporin OINT 15 GM TUBE TP SCH (22:01)
[2021-09-21 22:55] LABS: BUN/Creatinine Ratio 18 (6-26); Blood Urea Nitrogen 12 mg/dL (6-20); Calcium 8.2 mg/dL (8.6-10.3); Carbon Dioxide 23 mEq/L (23-29); Chloride 99 mEq/L (98-107); Glucose 220 mg/dL (70-105); Osmolality,Calculated 279 (280-300); Potassium 3.1 mEq/L (3.5-5.1); Sodium 131 mEq/L (136-145)
[2021-09-22] MEDS: D5% in Water 1,000 ML IVC SCH ×3 (01:10→16:35)
[2021-09-22] MEDS: CLAVULANATE GTUBE SCH ×2 (05:50→16:36)
[2021-09-22] MEDS: AMOXICILLIN GTUBE SCH ×2 (05:50→16:36)
[2021-09-22] MEDS: Famotidine 20 MG TABLET GTUBE SCH ×2 (09:03→21:14)
[2021-09-22] MEDS: Lithium Carbonate 300 MG CAPSULE PO SCH ×2 (09:09→21:14)
[2021-09-22] MEDS: Neosporin OINT 15 GM TUBE TP SCH ×3 (10:53→21:15)
[2021-09-22 15:12] LABS: Magnesium 1.8 mg/dL (1.6-2.6); Phosphorous 3.4 mg/dL (2.7-4.5); Potassium 3.5 mEq/L (3.5-5.1)
[2021-09-22] MEDS: Fluconazole 40 MG/ML MLS GTUBE SCH (16:36)
[2021-09-22] MEDS: D5% in 0.9% NACL 1,000 ML IVC SCH (16:58)
[2021-09-22] MEDS: Mirtazapine 15 MG TABLET GTUBE SCH (21:13)
[2021-09-22] MEDS: methocarbamoL 500 MG TABLET GTUBE SCH (21:14)
[2021-09-23] MEDS: D5% in 0.9% NACL 1,000 ML IVC SCH ×3 (00:40→21:50)
[2021-09-23 05:17] LABS: Magnesium 1.8 mg/dL (1.6-2.6); Phosphorous 3.2 mg/dL (2.7-4.5)
[2021-09-23 05:18] LABS: Alanine Aminotransferase 30 Units/L (7-52); Albumin/Globulin Ratio 1.2 (1.1-2.2); Alkaline Phosphatase 73 Units/L (34-104); Aspartate Amino Transferase 41 Units/L (13-39); BUN/Creatinine Ratio 6 (6-26); Bilirubin,Total 0.2 mg/dL (0.3-1.0); Blood Urea Nitrogen 4 mg/dL (6-20); Calcium 8.6 mg/dL (8.6-10.3); Carbon Dioxide 25 mEq/L (23-29); Chloride 112 mEq/L (98-107); Globulin 2.5 g/dL (2.4-3.5); Glucose 108 mg/dL (70-105); Osmolality,Calculated 295 (280-300); Potassium 3.2 mEq/L (3.5-5.1); Sodium 144 mEq/L (136-145); Total Protein 5.5 g/dL (6.4-8.9)
[2021-09-23] MEDS ORDERED: D10% in Water 500 ML IVC PRN (09:23)
[2021-09-23] MEDS: Lithium Carbonate 300 MG CAPSULE PO SCH ×2 (10:10→21:50)
[2021-09-23] MEDS: AMOXICILLIN GTUBE SCH ×2 (10:10→17:41)
[2021-09-23] MEDS: CLAVULANATE GTUBE SCH ×2 (10:10→17:41)
[2021-09-23] MEDS: Famotidine 20 MG TABLET GTUBE SCH ×2 (10:11→21:49)
[2021-09-23] MEDS: Neosporin OINT 15 GM TUBE TP SCH ×3 (10:13→21:51)
[2021-09-23] MEDS: Insulin LISPRO 300 UNITS/3 ML VIAL SUBQ SCH ×2 (13:30→16:46)
[2021-09-23] MEDS: Fluconazole 40 MG/ML MLS GTUBE SCH (16:02)
[2021-09-23] MEDS ORDERED: Clinimix E 5%-15% SOLUTION 2,000 ML with MVI, adult with vitamin K 10 ML IVC SCH (17:00)
[2021-09-23] MEDS ORDERED: Fat Emulsion 250 ML IVPB SCH (17:00)
[2021-09-23] MEDS: Mirtazapine 15 MG TABLET GTUBE SCH (21:48)
[2021-09-23] MEDS: methocarbamoL 500 MG TABLET GTUBE SCH (21:49)
[2021-09-24 05:04] LABS: Basophils % 0.5 %; Eosinophils # 0.3 K/mcL (0.0-0.6); Eosinophils % 3.9 %; Hematocrit 28.5 % (35.3-44.9); Hemoglobin 9.2 g/dL (11.5-15.4); Immature Granulocytes % 0.4 % (0-4); Lymphocytes # 1.5 K/mcL (0.6-4.6); Lymphocytes % 19.2 %; Mean Corpuscular HGB Conc 32.3 g/dL (31.6-35.5); Mean Corpuscular Hemoglobin 29.3 pg (28.0-33.3); Mean Corpuscular Volume 90.8 fL (83.0-100.0); Mean Platelet Volume 10.7 fL (9.4-12.4); Monocytes # 0.5 K/mcL (0.0-1.3); Monocytes % 6.6 %; Neutrophils # 5.5 K/mcL (1.6-8.9); Platelet Count 316 K/mcL (140-400); Red Blood Count 3.14 M/mcL (3.82-4.97); Red Cell Distribution Width 13.1 % (11.5-14.5); Segmented Neutrophils % 69.4 %
[2021-09-24 05:40] LABS: Alanine Aminotransferase 37 Units/L (7-52); Albumin/Globulin Ratio 1.3 (1.1-2.2); Alkaline Phosphatase 68 Units/L (34-104); Aspartate Amino Transferase 45 Units/L (13-39); BUN/Creatinine Ratio 7 (6-26); Bilirubin,Total 0.1 mg/dL (0.3-1.0); Blood Urea Nitrogen 4 mg/dL (6-20); Calcium 8.4 mg/dL (8.6-10.3); Carbon Dioxide 24 mEq/L (23-29); Chloride 114 mEq/L (98-107); Globulin 2.3 g/dL (2.4-3.5); Glucose 90 mg/dL (70-105); Magnesium 1.6 mg/dL (1.6-2.6); Osmolality,Calculated 294 (280-300); Phosphorous 2.8 mg/dL (2.7-4.5); Potassium 3.4 mEq/L (3.5-5.1); Sodium 144 mEq/L (136-145); Total Protein 5.3 g/dL (6.4-8.9); Triglycerides 424 mg/dL (< 150)
[2021-09-24] MEDS: D5% in 0.9% NACL 1,000 ML IVC SCH ×2 (06:23→09:13)
[2021-09-24] MEDS: AMOXICILLIN GTUBE SCH (06:24)
[2021-09-24] MEDS: CLAVULANATE GTUBE SCH (06:24)
[2021-09-24] MEDS: Insulin LISPRO 300 UNITS/3 ML VIAL SUBQ SCH ×2 (09:13→12:13)
[2021-09-24] MEDS: Famotidine 20 MG TABLET GTUBE SCH (09:35)
[2021-09-24] MEDS: Lithium Carbonate 300 MG CAPSULE PO SCH (09:35)
[2021-09-24] MEDS: Neosporin OINT 15 GM TUBE TP SCH ×2 (09:36→15:32)
[2021-09-24 11:06] VITALS: BP 128/79; PULSE 79; TEMP 97.7; O2SAT 100
[2021-09-24] MEDS: Fluconazole 40 MG/ML MLS GTUBE SCH (15:32)
== END 2021-09-24 16:51 | disposition home health service (06) | DRG 393 ==
LOC: EMEROOARM 17:37 → 3BNU 17:37 → SUATTDRO 09-21 15:25
PROVIDERS: ADMIT Registered Nurse; ATTEND Nurse Practitioner